=== PATIENT | female | born 1995 | race Caucasian/White ===

== ENCOUNTER 2020-02-02 18:02 | Emergency (ER) | payer OTHER ==
[~2020-02-02] VITALS: Ht 167.6 cm; Wt 49.9 kg
[~2020-02-02 18:02] MED LIST: PAROXETINE HCL10 MG PO; PRENATAL TABLE1 EAC1
--- OUTSIDE RECORDS SUMMARY | 2020-02-02 18:05 | XMS REPORT ---
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 Allergies, Adverse Reactions, Alerts Allergy Name Allergy Type Status Severity Reaction(s) Onset Date Inactive Date Treating Clinician Comments No Known Allergies DA Active U 2020-01-03 00:00:00 No Known Allergies DA Active U 2019-08-14 00:00:00 No Known Allergies DA Active U 2019-07-28 00:00:00 No Known Allergies DA Active U 2016-12-11 00:00:00 Medications This patient has no known medications. Results Test Description Test Time Test Comments Text Results Atomic Results Result Comments BASIC METABOLIC PANEL 2019-12-25 13:29:00 SODIUM (test code=NA) 145 mmol/L 136-145 POTASSIUM (test code=K) 3.9 mmol/L 3.5-5.1 CHLORIDE (test code=CL) 108 mmol/L 101-109 CARBON DIOXIDE (test code=CO2) 29.7 mmol/L 21-32 ANION GAP (test code=GAP) 11 mmol/L 10-20 GLUCOSE (test code=GLU) 87 mg/dL 74-106 BLOOD UREA NITROGEN (test code=BUN) 11 mg/dL 3-21 GLOMERULAR FILTRATION RATE (test code=GFR) > 60 mL/min >=60 Estimated GFR by using Modified MDRD formula.Chronic kidney disease is defined as either kidney damageor GFR <60 mL/min/1.73 m2 for >3 months. CREATININE (test code=CREAT) 0.66 mg/dL 0.55-1.3 BUN/CREATININE RATIO (test code=BUN/CREA) 16.7 10-20 CALCIUM (test code=CA) 8.8 mg/dL 8.4-10.2 UR HCG [id number] 13:25:00* Test Item Value Reference Range Comments UR HCG QUAL (test code=HCGQLU) NEGATIVE This HCGQL test is NOT applicable for MALE patients.Check with nurse about probable order error.If Tumor Marker Test needed, nurse should order test "HCGTU"(Test #550.70647) PROTHROMBIN [id number] 13:23:00* Test Item Value Reference Range Comments PROTHROMBIN TIME PATIENT (test code=PTP) 10.3 seconds 9.0-13.0 INTERNATIONAL NORMAL RATIO (test code=INR) 1.0 0.8-1.2 The therapeutic range for oral anticoagulant therapy formost indications is an international normalized ratio (INR)of between 2.0 and 3.0. The recommended therapeutic INRrange for various clinical situations is listed below: Clinical Situation INR range Pulmonary e mbolism treatment (2.0-3.0)Venous thrombosis treatmentVenous thrombosis prophylaxis (high risk surgery)Prevention of systemic embolism from: Acute myocardial infarction Valvular heart disease Atrial fibrillation Mechanical prosthetic heart valves (2.5-3.5) IS PATIENT ON ANTICOAGULANTS? NTHROMBOPLASTIN TIME [id number] 13:23:00* Test Item Value Reference Range Comments THROMBOPLASTIN TIME PARTIAL (test code=PTT) 21.7 seconds 25.5-34.3 Therapeutic Range for patients on Heparin Therapy is 2 to2.5 times their baseline PTT level. IS PATIENT ON ANTICOAGULANTS? NCBC W/AUTO [id number] 13:00:00* Test Item Value Reference Range Comments WHITE BLOOD CELL (test code=WBC) 4.5 K/mm3 4.5-12.5 RED BLOOD CELL (test code=RBC) 4.96 mill/mm3 3.7-5.2 HEMOGLOBIN (test code=HGB) 14.3 gram/dL 11.5-15.5 HEMATOCRIT (test code=HCT) 42.6 % 36.0-46.0 MEAN CELL VOLUME (test code=MCV) 85.9 fL 80-98 MEAN CELL HGB (test code=MCH) 28.8 picogram 27.0-33.0 MEAN CELL HGB CONCETRATION (test code=MCHC) 33.6 gram/dL 33.0-36.0 RED CELL DISTRIBUTION WIDTH (test code=RDW) 11.6 % 11.6-16.2 RED CELL DISTRIBUTION WIDTH SD (test code=RDW-SD) 36.3 fL 37.0-51.0 PLATELET COUNT (test code=PLT) 126 K/mm3 150-450 MEAN PLATELET VOLUME (test code=MPV) 11.9 fL 6.7-11.0 NEUTROPHIL % (test code=NT%) 47.7 % 39.0-69.0 LYMPHOCYTE % (test code=LY%) 38.7 % 25.0-55.0 MONOCYTE % (test code=MO%) 8.0 % 0.0-10.0 EOSINOPHIL % (test code=EO%) 3.8 % 0.0-5.0 BASOPHIL % (test code=BA%) 0.9 % 0.0-1.0 NEUTROPHIL # (test code=NT#) 2.16 K/mm3 1.8-7.7 LYMPHOCYTE # (test code=LY#) 1.75 K/mm3 1.0-5.0 MONOCYTE # (test code=MO#) 0.36 K/mm3 0-0.8 EOSINOPHIL # (test code=EO#) 0.17 K/mm3 0.0-0.5 BASOPHIL # (test code=BA#) 0.04 K/mm3 0.0-0.2 MANUAL DIFF REQUIRED (test code=MDIFF) NO - CT HEAD/BRAIN W/O [id number] 12:45:00 Name: ARSLAN KINNEY [facility] : 1995 Age/S: 24 / F [address] [facility] Unit #: [id number] Loc: [place] [address] Phys: Power Cohen MD Acct: [id number] Dis Date: Status: REG ER PHONE #: [phone] Exam Date: 12/25/2019 1200 FAX #: [phone] Reason: Headache EXAMS: CPT CODE: [id number] CT HEAD/BRAIN W/O CONT 18099 HISTORY: Headache TECHNIQUE: Noncontrast 2.[address] of the head. Examination acquired within 24 hours of arrival. Automated exposure control for dose reduction. COMPARISON: Noncontrast CT brain August 13, 2019 FINDINGS: No lacerations or contusions of the scalp or facial soft tissues. Calvarium and skull base are intact. No acute hemorrhage. No intracranial mass, mass effect, or midline shift. No effacement of the sulci or lebron-white matter interface. No cortical atrophy. No signs of white matter small-vessel disease. No hydrocephalus.. No extra-axial fluid collection. Visualized paranasal sinuses are clear. Mastoid air cells and middle ear cavities are clear. Orbital contents are unremarkable. IMPRESSION: Negative CT head. Location: [facility] E lectronically Signed by Trevor Garcia MD on 12/25/2019 at 1245 Reported and signed by: Trevor Garcia MD CC: Power Cohen MD Technologist:Pia Montez CTDI: DLP: Trnscb Date/Time: 12/25/2019 (1245) [email or web address] Orig Print D/T: S: 12/25/2019 (5708) PAGE 1 Signed Report URINALYSIS [id number] 12:40:00* Test Item Value Reference Range Comments UA COLOR (test code=COLU) YELLOW YELLOW UA APPEARANCE (test code=APPU) HAZY CLEAR UA GLUCOSE DIPSTICK (test code=DGLUU) norm mg/dL NEGATIVE UA BILIRUBIN DIPSTICK (test code=BILU) NEGATIVE mg/dL NEGATIVE UA KETONE DIPSTICK (test code=KETU) neg mg/dL NEGATIVE UA SPECIFIC GRAVITY (test code=SGU) 1.010 1.001-1.035 UA BLOOD DIPSTICK (test code=MAIRA) 150 (3+) Elías/uL NEGATIVE UA PH DIPSTICK (test code=GERARDO) 7.0 5.0-8.0 UA PROTEIN DIPSTICK (test code=PROU) neg mg/dL Neg-15 UA UROBILINIOGEN DIPSTICK (test code=URO) norm mg/dL 0.0-0.2 UA NITRITE DIPSTICK (test code=BOBBY) NEGATIVE NEGATIVE UA LEUKOCYTE ESTERASE DIPSTICK (test code=LEUU) 500 Warren/uL (3+) uL NEGATIVE UA WBC (test code=WBCU) 6-10 per HPF 0-5 UA RBC (test code=RBCU) 3-5 per HPF 0-5 UA EPITHELIAL CELLS (test code=EPIU) MANY per HPF Few UA BACTERIA (test code=BACU) FEW per HPF NONE Urine Source? Clean CatchURINALYSIS [id number] 12:38:00* Test Item Value Reference Range Comments UA COLOR (test code=COLU) YELLOW YELLOW UA APPEARANCE (test code=APPU) HAZY CLEAR UA GLUCOSE DIPSTICK (test code=DGLUU) norm mg/dL NEGATIVE UA BILIRUBIN DIPSTICK (test code=BILU) NEGATIVE mg/dL NEGATIVE UA KETONE DIPSTICK (test code=KETU) neg mg/dL NEGATIVE UA SPECIFIC GRAVITY (test code=SGU) 1.010 1.001-1.035 UA BLOOD DIPSTICK (test code=MAIRA) 150 (3+) Elías/uL NEGATIVE UA PH DIPSTICK (test code=GERARDO) 7.0 5.0-8.0 UA PROTEIN DIPSTICK (test code=PROU) neg mg/dL Neg-15 UA UROBILINIOGEN DIPSTICK (test code=URO) norm mg/dL 0.0-0.2 UA NITRITE DIPSTICK (test code=BOBBY) NEGATIVE NEGATIVE UA LEUKOCYTE ESTERASE DIPSTICK (test code=LEUU) 500 Warren/uL (3+) uL NEGATIVE UA WBC (test code=WBCU) per HPF 0-5 UA RBC (test code=RBCU) per HPF 0-5 UA EPITHELIAL CELLS (test code=EPIU) per HPF Few UA BACTERIA (test code=BACU) per HPF NONE Urine Source? Clean Catch- CT ABD PELVIS [id number] 10:47:00 Name: ARSLAN KINNEY [facility] : 1995 Age/S: 24 / F [address] [facility] Unit #: [id number] Loc: [facility] [place] [address] Phys: Darrion Metzger MD Acct: [id number] Di s Date: Status: REG ER PHONE #: Exam Date: 10/16/2019 1026 FAX #: [phone] Reason: upper abd pain EXAMS: CPT CODE: [id number] CT ABD PELVIS W/CONT 22191 REASON FOR EXAM: upper abd pain EXAM ORDER DATE: 10/16/2019 9:35 AM Ordering M.D.: Darrion Metzger MD PROCEDURE: - CT ABD PELVIS W/CONT cont rast-enhanced axial CT images were acquired through the abdomen/pelvis at 5 mm intervals. Sagittal and coronal reformatted images were generated. Automated exposure control was utilized for this reduction. Phases of contrast: venous and delayed COMPARISON: CT abdomen and pelvis July 28, 2019 FINDINGS: Visualized thorax: Normal Hepatobiliary system: Normal. Specifically no calcified ga llbladder stones and no inflammatory changes of the gallbladder are appare nt Pancreas: Normal Spleen: Measures at the upper li mits of normal in size. No parenchymal abnormalities are seen Adrenal glands: Normal Genitourinary system: Normal Gastrointestinal tract and appendix: Heavy colonic stool burden. Stomach and small bowel are within normal limits. Appendix is not visualized choe giselle no inflammatory changes are seen in the expected region of the appendi x. Abdominal vascular structures: Normal Peritoneum and retroperitoneum: No free fluid or free air. No omental or mesenteric masses. No abnormal lymph nodes. Musculoskeletal structures and a bdominal wall: Normal IMPRESSION: Heavy colonic stool bu rden suggests constipation. However there are no PAGE 1 Signed Report (CONTINUED) [facility] 1995 [facility]S: 24 / F [address] [facility] Unit #: [id number] Loc: [place], [place] [address] Phys: Darrion Metzger MD Acct: [id number] Dis Date: Status: REG ER PHONE #: [phone] Exam Date: 10/16 1026 FAX #: [phone] Reason: upper abd pain EXAMS: CPT CODE: [id number] CT ABD PELVIS W/CONT 74 177 <Continued> abnormalities of the gallbladder, pancreas, or stomach to explain the patient's upper abdominal pain. Location: [facility] at 1047 Reported and signed by: Trevor Garcia MD CC: Becca Hernandez MD; Darrion Metzger MD Technologist:Juanito Eubanks RT(R),CT CTDI: DLP: Trnscb Date/Time: 10/16/2019 (1047) [email or web address].[id number] Orig Print D/T: S: 10/16/2019 (2040) PAGE 2 Signed Report URINALYSIS [id number] 10:06:00* Test Item Value Reference Range Comments UA COLOR (test code=COLU) YELLOW YELLOW UA APPEARANCE (test code=APPU) HAZY CLEAR UA GLUCOSE DIPSTICK (test code=DGLUU) norm mg/dL NEGATIVE UA BILIRUBIN DIPSTICK (test code=BILU) NEGATIVE mg/dL NEGATIVE UA KETONE DIPSTICK (test code=KETU) neg mg/dL NEGATIVE UA SPECIFIC GRAVITY (test code=SGU) 1.005 1.001-1.035 UA BLOOD DIPSTICK (test code=MAIRA) neg Elías/uL NEGATIVE UA PH DIPSTICK (test code=GERARDO) 7.0 5.0-8.0 UA PROTEIN DIPSTICK (test code=PROU) neg mg/dL Neg-15 UA UROBILINIOGEN DIPSTICK (test code=URO) norm mg/dL 0.0-0.2 UA NITRITE DIPSTICK (test code=BOBBY) NEGATIVE NEGATIVE UA LEUKOCYTE ESTERASE DIPSTICK (test code=LEUU) 100 Warren/uL (1+) uL NEGATIVE UA WBC (test code=WBCU) 20-30 per HPF 0-5 UA RBC (test code=RBCU) 0-2 per HPF 0-5 UA EPITHELIAL CELLS (test code=EPIU) MANY per HPF Few UA BACTERIA (test code=BACU) MODERATE per HPF NONE URINALYSIS W/O [id number] 10:06:00* Test Item Value Reference Range Comments UA MICROSCOPIC NEEDED? (test code=UAMICRO) YES UR HCG [id number] 10:06:00* Test Item Value Reference Range Comments UR HCG QUAL (test code=HCGQLU) NEGATIVE This HCGQL test is NOT applicable for MALE patients.Check with nurse about probable order error.If Tumor Marker Test needed, nurse should order test "HCGTU"(Test #550.65235) COMPREHENSIVE METABOLIC [id number] 10:02:00* Test Item Value Reference Range Comments SODIUM (test code=NA) 141 mmol/L 136-145 POTASSIUM (test code=K) 3.7 mmol/L 3.5-5.1 CHLORIDE (test code=CL) 105 mmol/L 101-109 CARBON DIOXIDE (test code=CO2) 27.9 mmol/L 21-32 ANION GAP (test code=GAP) 12 mmol/L 10-20 GLUCOSE (test code=GLU) 94 mg/dL 74-106 BLOOD UREA NITROGEN (test code=BUN) 10 mg/dL 3-21 CREATININE (test code=CREAT) 0.68 mg/dL 0.55-1.3 BUN/CREATININE RATIO (test code=BUN/CREA) 14.7 10-20 TOTAL PROTEIN (test code=PROT) 7.4 g/dL 6.5-8.4 ALBUMIN (test code=ALB) 4.0 g/dL 3.4-4.8 GLOBULIN (test code=GLOB) 3.4 G/DL 1-10 ALBUMIN/GLOBULIN RATIO (test code=A/G) 1.18 RATIO 0.75-1.50 CALCIUM (test code=CA) 8.8 mg/dL 8.4-10.2 BILIRUBIN TOTAL (test code=BILT) 0.60 mg/dL 0.0-1.0 SGOT/AST (test code=AST) 22 U/L 6-32 SGPT/ALT (test code=ALT) 22 U/L 12-78 Note: Change in REFERENCE RANGE due to new reagent method. ALKALINE PHOSPHATASE TOTAL (test code=ALKP) 84 U/L 38-126 [id number] 10:02:00* Test Item Value Reference Range Comments LIPASE (test code=LIP) 159 U/L 128-270 URINALYSIS [id number] 09:59:00* Test Item Value Reference Range Comments UA COLOR (test code=COLU) YELLOW YELLOW UA APPEARANCE (test code=APPU) CLEAR UA GLUCOSE DIPSTICK (test code=DGLUU) norm mg/dL NEGATIVE UA BILIRUBIN DIPSTICK (test code=BILU) NEGATIVE mg/dL NEGATIVE UA KETONE DIPSTICK (test code=KETU) neg mg/dL NEGATIVE UA SPECIFIC GRAVITY (test code=SGU) 1.005 1.001-1.035 UA BLOOD DIPSTICK (test code=MAIRA) neg Elías/uL NEGATIVE UA PH DIPSTICK (test code=GERARDO) 7.0 5.0-8.0 UA PROTEIN DIPSTICK (test code=PROU) neg mg/dL Neg-15 UA UROBILINIOGEN DIPSTICK (test code=URO) norm mg/dL 0.0-0.2 UA NITRITE DIPSTICK (test code=BOBBY) NEGATIVE NEGATIVE UA LEUKOCYTE ESTERASE DIPSTICK (test code=LEUU) 100 Warren/uL (1+) uL NEGATIVE UA WBC (test code=WBCU) per HPF 0-5 UA RBC (test code=RBCU) per HPF 0-5 UA EPITHELIAL CELLS (test code=EPIU) per HPF Few UA BACTERIA (test code=BACU) per HPF NONE URINALYSIS W/O [id number] 09:59:00* Test Item Value Reference Range Comments UA MICROSCOPIC NEEDED? (test code=UAMICRO) YES UR HCG [id number] 09:59:00* Test Item Value Reference Range Comments UR HCG QUAL (test code=HCGQLU) NEGATIVE This HCGQL test is NOT applicable for MALE patients.Check with nurse about probable order error.If Tumor Marker Test needed, nurse should order test "HCGTU"(Test #550.65704) URINALYSIS [id number] 09:59:00* Test Item Value Reference Range Comments UA COLOR (test code=COLU) YELLOW YELLOW UA APPEARANCE (test code=APPU) CLEAR UA GLUCOSE DIPSTICK (test code=DGLUU) norm mg/dL NEGATIVE UA BILIRUBIN DIPSTICK (test code=BILU) NEGATIVE mg/dL NEGATIVE UA KETONE DIPSTICK (test code=KETU) neg mg/dL NEGATIVE UA SPECIFIC GRAVITY (test code=SGU) 1.005 1.001-1.035 UA BLOOD DIPSTICK (test code=MAIRA) neg Elías/uL NEGATIVE UA PH DIPSTICK (test code=GERARDO) 7.0 5.0-8.0 UA PROTEIN DIPSTICK (test code=PROU) neg mg/dL Neg-15 UA UROBILINIOGEN DIPSTICK (test code=URO) norm mg/dL 0.0-0.2 UA NITRITE DIPSTICK (test code=BOBBY) NEGATIVE NEGATIVE UA LEUKOCYTE ESTERASE DIPSTICK (test code=LEUU) 100 Warren/uL (1+) uL NEGATIVE UA WBC (test code=WBCU) per HPF 0-5 UA RBC (test code=RBCU) per HPF 0-5 UA EPITHELIAL CELLS (test code=EPIU) per HPF Few UA BACTERIA (test code=BACU) per HPF NONE URINALYSIS W/O [id number] 09:59:00* Test Item Value Reference Range Comments UA MICROSCOPIC NEEDED? (test code=UAMICRO) YES UR HCG [id number] 09:59:00* Test Item Value Reference Range Comments UR HCG QUAL (test code=HCGQLU) NEGATIVE This HCGQL test is NOT applicable for MALE patients.Check with nurse about probable order error.If Tumor Marker Test needed, nurse should order test "HCGTU"(Test #550.04703) URINALYSIS W/O [id number] 09:52:00* Test Item Value Reference Range Comments UA COLOR (test code=COLU) YELLOW UA APPEARANCE (test code=APPU) CLEAR UA BILIRUBIN DIPSTICK (test code=BILU) NEGATIVE UA SPECIFIC GRAVITY (test code=SGU) 1.001-1.035 UA PH DIPSTICK (test code=GERARDO) 5.0-8.0 UA UROBILINIOGEN DIPSTICK (test code=URO) mg/dL 0.0-0.2 UA NITRITE DIPSTICK (test code=BOBBY) NEGATIVE UA LEUKOCYTE ESTERASE DIPSTICK (test code=LEUU) uL NEGATIVE UA MICROSCOPIC NEEDED? (test code=UAMICRO) UR HCG [id number] 09:52:00* Test Item Value Reference Range Comments UR HCG QUAL (test code=HCGQLU) NEGATIVE This HCGQL test is NOT applicable for MALE patients.Check with nurse about probable order error.If Tumor Marker Test needed, nurse should order test "HCGTU"(Test #550.98184) CBC W/AUTO [id number] 09:45:00* Test Item Value Reference Range Comments WHITE BLOOD CELL (test code=WBC) 6.8 K/mm3 4.5-12.5 RED BLOOD CELL (test code=RBC) 4.42 mill/mm3 3.7-5.2 HEMOGLOBIN (test code=HGB) 12.6 gram/dL 11.5-15.5 HEMATOCRIT (test code=HCT) 38.7 % 36.0-46.0 MEAN CELL VOLUME (test code=MCV) 87.6 fL 80-98 MEAN CELL HGB (test code=MCH) 28.5 picogram 27.0-33.0 MEAN CELL HGB CONCETRATION (test code=MCHC) 32.6 gram/dL 33.0-36.0 RED CELL DISTRIBUTION WIDTH (test code=RDW) 12.5 % 11.6-16.2 RED CELL DISTRIBUTION WIDTH SD (test code=RDW-SD) 40.7 fL 37.0-51.0 PLATELET COUNT (test code=PLT) 195 K/mm3 150-450 MEAN PLATELET VOLUME (test code=MPV) 11.2 fL 6.7-11.0 NEUTROPHIL % (test code=NT%) 68.0 % 39.0-69.0 LYMPHOCYTE % (test code=LY%) 22.1 % 25.0-55.0 MONOCYTE % (test code=MO%) 7.7 % 0.0-10.0 EOSINOPHIL % (test code=EO%) 1.5 % 0.0-5.0 BASOPHIL % (test code=BA%) 0.6 % 0.0-1.0 NEUTROPHIL # (test code=NT#) 4.59 K/mm3 1.8-7.7 LYMPHOCYTE # (test code=LY#) 1.49 K/mm3 1.0-5.0 MONOCYTE # (test code=MO#) 0.52 K/mm3 0-0.8 EOSINOPHIL # (test code=EO#) 0.10 K/mm3 0.0-0.5 BASOPHIL # (test code=BA#) 0.04 K/mm3 0.0-0.2 MANUAL DIFF REQUIRED (test code=MDIFF) NO BASIC METABOLIC [id number] 21:16:00* Test Item Value Reference Range Comments SODIUM (test code=NA) 139 mEq/L 134-147 POTASSIUM (test code=K) 3.7 mEq/L 3.4-5.0 CHLORIDE (test code=CL) 107 mEq/L 100-108 CARBON DIOXIDE (test code=CO2) 28 mEq/L 21-33 ANION GAP (test code=GAP) 8 0-20 GLUCOSE (test code=GLU) 88 mg/dL 70-110 BLOOD UREA NITROGEN (test code=BUN) 13 mg/dL 7-18 GLOMERULAR FILTRATION RATE (test code=GFR) 104.6 110-120 Units of measure=ml/min/1.73 m2 CREATININE (test code=CREAT) 0.7 mg/dL 0.6-1.3 CALCIUM (test code=CA) 9.1 mg/dL 8.0-10.5 HEPATIC FUNCTION [id number] 21:16:00* Test Item Value Reference Range Comments TOTAL PROTEIN (test code=PROT) 8.1 g/dL 6.4-8.2 ALBUMIN (test code=ALB) 4.70 g/dL 3.4-5.0 BILIRUBIN TOTAL (test code=BILT) 0.4 MG/DL <1.5 BILIRUBIN DIRECT (test code=BILD) 0.10 MG/DL 0.0-0.30 BILIRUBIN INDIRECT (test code=BILIND) 0.30 MG/DL SGOT/AST (test code=AST) 19 IUnit/L 15-37 SGPT/ALT (test code=ALT) 22 IUnit/L 15-65 ALKALINE PHOSPHATASE TOTAL (test code=ALKP) 86 IUnit/L 20-125 [id number] 21:16:00* Test Item Value Reference Range Comments LIPASE (test code=LIP) 154 IUnit/L 73-393 BASIC METABOLIC [id number] 21:08:00* Test Item Value Reference Range Comments SODIUM (test code=NA) 139 mEq/L 134-147 POTASSIUM (test code=K) 3.7 mEq/L 3.4-5.0 CHLORIDE (test code=CL) 107 mEq/L 100-108 CARBON DIOXIDE (test code=CO2) 28 mEq/L 21-33 ANION GAP (test code=GAP) 8 0-20 GLUCOSE (test code=GLU) 88 mg/dL 70-110 BLOOD UREA NITROGEN (test code=BUN) 13 mg/dL 7-18 GLOMERULAR FILTRATION RATE (test code=GFR) 110-120 CREATININE (test code=CREAT) mg/dL 0.6-1.3 CALCIUM (test code=CA) 9.1 mg/dL 8.0-10.5 HEPATIC FUNCTION [id number] 21:08:00* Test Item Value Reference Range Comments TOTAL PROTEIN (test code=PROT) g/dL 6.4-8.2 ALBUMIN (test code=ALB) g/dL 3.4-5.0 BILIRUBIN TOTAL (test code=BILT) MG/DL <1.5 BILIRUBIN DIRECT (test code=BILD) MG/DL 0.0-0.30 SGOT/AST (test code=AST) IUnit/L 15-37 SGPT/ALT (test code=ALT) IUnit/L 15-65 ALKALINE PHOSPHATASE TOTAL (test code=ALKP) IUnit/L 20-125 [id number] 21:08:00* Test Item Value Reference Range Comments LIPASE (test code=LIP) 154 IUnit/L 73-393 UA RFLX MICR CULT IF [id number] 20:28:00* Test Item Value Reference Range Comments UA COLOR (test code=COLU) YELLOW YEL/STRAW UA APPEARANCE (test code=APPU) CLOUDY CLEAR UA GLUCOSE DIPSTICK (test code=DGLUU) NEGATIVE NEGATIVE UA BILIRUBIN DIPSTICK (test code=BILU) NEGATIVE NEGATIVE UA KETONE DIPSTICK (test code=KETU) NEGATIVE NEGATIVE UA SPECIFIC GRAVITY (test code=SGU) 1.018 1.005-1.030 UA BLOOD DIPSTICK (test code=MAIRA) NEGATIVE NEGATIVE UA PH DIPSTICK (test code=GERARDO) 6.0 5.0-7.0 UA PROTEIN DIPSTICK (test code=PROU) NEGATIVE NEGATIVE UA UROBILINIOGEN DIPSTICK (test code=URO) 0.2 mg/dL 0.2-1.0 UA NITRITE DIPSTICK (test code=BOBBY) NEGATIVE NEGATIVE UA LEUKOCYTE ESTERASE DIPSTICK (test code=LEUU) 3+ NEGATIVE UA WBC (test code=WBCU) 21-50 WBC/HPF 0-3 UA RBC (test code=RBCU) 4-10 RBC/HPF 0-3 UA WBC NO REFLEX (test code=WBCUCL) 21-50 WBC/HPF 0-3 UA BACTERIA (test code=BACU) TRACE /HPF NONE SEEN UA SQUAMOUS CELLS (test code=SQU) 36-50 /HPF NONE SEEN UA MUCUS (test code=MUCU) 2+ /LPF NONE SEEN Indication for culture: Suprapubic PainSpecimen Description: CLEAN CATCHUR HCG [id number] 20:24:00* Test Item Value Reference Range Comments UR HCG QUAL (test code=HCGQLU) NEGATIVE NEGATIVE CBC W/AUTO [id number] 20:20:00* Test Item Value Reference Range Comments WHITE BLOOD CELL (test code=WBC) 5.84 x10 3/uL 4.5-11.0 RED BLOOD CELL (test code=RBC) 4.85 x10 6/uL 3.54-5.02 HEMOGLOBIN (test code=HGB) 14.0 g/dL 11.0-15.0 HEMATOCRIT (test code=HCT) 43.0 % 33.0-45.0 MEAN CELL VOLUME (test code=MCV) 88.7 fL 81.0-99.0 MEAN CELL HGB (test code=MCH) 28.9 pg 27.0-33.0 MEAN CELL HGB CONCETRATION (test code=MCHC) 32.6 g/dL 33.0-37.0 RED CELL DISTRIBUTION WIDTH CV (test code=RDW) 12.9 % 11.5-14.5 RED CELL DISTRIBUTION WIDTH SD (test code=RDW-SD) 41.2 fL 37.0-54.0 PLATELET COUNT (test code=PLT) 225 x10 3/uL 150-400 MEAN PLATELET VOLUME (test code=MPV) 12.5 fL 7.0-9.0 NEUTROPHIL % (test code=NT%) 45.7 % 56.0-77.0 IMMATURE GRANULOCYTE % (test code=IG%) 0.3 % 0.0-2.0 LYMPHOCYTE % (test code=LY%) 43.8 % 14.0-32.0 MONOCYTE % (test code=MO%) 7.4 % 4.8-9.0 EOSINOPHIL % (test code=EO%) 1.9 % 0.3-3.7 BASOPHIL % (test code=BA%) 0.9 % 0.0-2.0 NUCLEATED RBC % (test code=NRBC%) 0.0 % 0-0 NEUTROPHIL # (test code=NT#) 2.67 x10 3/uL 2.0-7.6 IMMATURE GRANULOCYTE # (test code=IG#) 0.02 x10 3/uL 0.00-0.03 LYMPHOCYTE # (test code=LY#) 2.56 x10 3/uL 1.0-3.8 MONOCYTE # (test code=MO#) 0.43 x10 3/uL 0.1-0.8 EOSINOPHIL # (test code=EO#) 0.11 x10 3/uL 0.0-0.2 BASOPHIL # (test code=BA#) 0.05 x10 3/uL 0.0-0.2 NUCLEATED RBC # (test code=NRBC#) 0.00 x10 3/uL 0.0-0.1 MANUAL DIFF REQUIRED (test code=MDIFF) NO - US ABDOMEN [id number] 20:05:00 Name: ARSLAN KINNEY [facility] : 1995 Age/S: 24 / F [address] [place] [address] Blvd Unit #: [id number] Loc: [place] [address] Phys: Reginaldo Romero NP Acct: [id number] Dis Date: Status: REG ER PHONE #: [phone] Exam Date: 09/25/20191958 FAX #: [phone] Reason: RUQ abd pain EXAMS: CPT CODE: [id number] US ABDOMEN LTD 20023 PROCEDURE: RIGHT UPPER QUADRANT ABDOMINAL ULTRASOUND INDICATION: Right upper quadrant abdominal pain. COMPARISON: 06/12/2014 right upper quadrant abdominal ultrasound. 07/28/2019 CT abdomen. TECHNIQUE: Sonographic evaluation of the right upper quadrant of the abdomen was performed with supplemental color and pulsed Doppler. FINDINGS: LIVER: The liver is normal in contour and morphology with normal parenchymal echogenicity. GALLBLADDER: There are no gallstones, sludge, pericholecystic fluid, or wall thickening. BILE DUCTS: No intrahepatic biliary dilatation. The common bile duct measures 4 mm. PANCREAS: The visualized portions of the pancreas appear normal. RIGHT KIDNEY: The right kidney measures 11.2 cm in length. Normal renal contour and morphology with normal echogenicity. There is no hydronephrosis. Additional comments: No free fluid seen in Louie's pouch. IMPRESSION: Normal exam. SL: SG-H at 2004 Reported and signed by: Hany Miles M.D. CC: Becca Hernandez MD; Reginaldo Romero NP Technologist: Magda Li RDMS (Daiana) Trnscb Date/Time: 09/25/2019 (2004) [email or web address] Orig Print D/T: S: 09/25/2019 (2007) Probe: PAGE 1 Signed Report [id number] 05:09:00* Test Item Value Reference Range Comments ESTRADIOL (test code=ESTRA) 21.4 pg/mL () Adult Female: Follicular phase 12.5 - 166.0 Ovulation phase 85.8 - 498.0 Luteal phase 43.8 - 211.0 Postmenopausal <6.0 - 54.7 1st trimester 215.0 - >4300.0 Girls (1-10 years) 6.0 - 27.0Roche ECLIA methodologyPerformed At: [facility] [address] [id number] Black MD Ph:[phone] [id number] 05:09:00* Test Item Value Reference Range Comments PROLACTIN (test code=PROLAC) 56.7 ng/mL 4.8-23.3 Performed At: [facility] [address] [id number] Black MD Ph:[phone] - US RETRO [id number] 14:02:00Patient Name: ARSLAN KINNEY Unit No: [id number] EXAMS: CPT CODE: [id number] US RETRO LTD [address] CLINICAL HISTORY: hematuria Comparison: None Location: W1 TECHNIQUE: Realtime lebron scale and color doppler imaging of the kidneys performed. FINDINGS: The kidneys are normal in size and echogenicity. The right kidney measures 11.1 x 4.6 x 3.7 cm. The left kidney measures 11.7 x 4.2 x 3.8 cm. No renal mass, hydronephrosis, or shadowing calculus is seen. The urinary bladder is unremarkable. Bilateral ureteral jets are visible. IMPRESSION: Normal exam at 1402 Reported and signed by: Narayan Quach MD CC: No Primary Care Physician; Forrest Andrea MD Technologist: Alejandra Saldana Probe: Trscr Dt/Tm: 08/15/2019 (1402) by:JosieNAB2 Printed Date/Time: 08/15/2019 (1133) Name: ARSLAN KINNEY [facility] Phys: Forrest Villeda MD [address] : 1995 Age: 24 Sex: [place] [address] [id number] Loc: P.0618 1 Exam Date: 08/15/2019 Status: ADM IN PH: FAX: PAGE 1 Signed Report BASIC METABOLIC [id number] 07:08:00* Test Item Value Reference Range Comments SODIUM (test code=NA) 143 MMOL/L 136-143 POTASSIUM (test code=K) 5.1 MMOL/L 3.5-5.1 CHLORIDE (test code=CL) 108 MMOL/L 98-107 CARBON DIOXIDE (test code=CO2) 24 mmol/L 24-31 GLUCOSE (test code=GLU) 92 mg/dL 70-104 BLOOD UREA NITROGEN (test code=BUN) 7.5 MG/DL 7.0-21.0 GLOMERULAR FILTRATION RATE (test code=GFR) >=60 max estimate >60 The estimated glomerular filtration rate is computed usingpatient race, age (>18), sex, and serum creatinine. If anyof the needed data elements are missing the Laboratory cannot compute an estimation of the glomerular filtration rate. CREATININE (test code=CREAT) 0.6 mg/dL 0.8-1.5 CALCIUM (test code=CA) 9.0 mg/dL 8.8-10.2 CBC W/AUTO [id number] 06:56:00* Test Item Value Reference Range Comments WHITE BLOOD CELL (test code=WBC) 5.6 x10 3/uL 4.8-10.8 RED BLOOD CELL (test code=RBC) 4.40 x10 6/uL 4.20-5.40 HEMOGLOBIN (test code=HGB) 12.3 g/dL 14.5-20 HEMATOCRIT (test code=HCT) 38.8 % 37.0-47.0 MEAN CELL VOLUME (test code=MCV) 88.2 fL 81.0-99.0 MEAN CELL HGB (test code=MCH) 28.0 pg 27-31 MEAN CELL HGB CONCENTRATION (test code=MCHC) 31.7 G/DL 33-36.5 RED CELL DISTRIBUTION WIDTH (test code=RDW) 14.8 % 12.9-16.9 PLATELET COUNT (test code=PLT) 182 150-440 MEAN PLATELET VOLUME (test code=MPV) 11.6 fL 8.9-12.4 NEUTROPHIL % (test code=NT%) 42.6 % 42.2-75.2 LYMPHOCYTE % (test code=LY%) 44.3 % 20.5-51.1 MONOCYTE % (test code=MO%) 9.0 % 1.7-9.3 EOSINOPHIL % (test code=EO%) 3.2 % 0.0-7.0 BASOPHIL % (test code=BA%) 0.5 % 0-2.5 NEUTROPHIL # (test code=NT#) 2.38 x10 3/uL 1.80-7.70 LYMPHOCYTE # (test code=LY#) 2.47 x10 3/uL 1.00-4.80 MONOCYTE # (test code=MO#) 0.50 x10 3/uL 0.00-0.80 EOSINOPHIL # (test code=EO#) 0.18 x10 3/uL 0.00-0.45 BASOPHIL # (test code=BA#) 0.03 x10 3/uL 0.0-0.20 LUTEINIZING [id number] 05:09:00* Test Item Value Reference Range Comments LUTEINIZING HORMONE (test code=LH) 1.4 mIU/mL () Adult Female: Follicular phase 2.4 - 12.6 Ovulation phase 14.0 - 95.6 Luteal phase 1.0 - 11.4 Postmenopausal 7.7 - 58.5 FOLLICLE STIMULATING [id number] 05:09:00* Test Item Value Reference Range Comments FOLLICLE STIMULATING HORMONE (test code=FSH) LUTEINIZING [id number] 05:09:00* Test Item Value Reference Range Comments LUTEINIZING HORMONE (test code=LH) 1.4 mIU/mL () Adult Female: Follicular phase 2.4 - 12.6 Ovulation phase 14.0 - 95.6 Luteal phase 1.0 - 11.4 Postmenopausal 7.7 - 58.5 FOLLICLE STIMULATING [id number] 05:09:00* Test Item Value Reference Range Comments FOLLICLE STIMULATING HORMONE (test code=FSH) 3.7 mIU/mL () Adult Female: Follicular phase 3.5 - 12.5 Ovulation phase 4.7 - 21.5 Luteal phase 1.7 - 7.7 Postmenopausal 25.8 - 134.8Performed At: [facility] [address] [place], [place] [id number] Black MD Ph:[phone] CORTISOL [id number] 23:55:00* Test Item Value Reference Range Comments CORTISOL PM (test code=CORTPM) 3.1 mcg/dL 2.3-11.9 URINALYSIS [id number] 23:32:00* Test Item Value Reference Range Comments UA COLOR (test code=COLU) YELLOW DISCRIPT YELLOW UA APPEARANCE (test code=APPU) SLIGHTLY CLOUDY DISCRIPT CLEAR UA GLUCOSE DIPSTICK (test code=DGLUU) NEGATIVE mg/dL NEGATIVE UA BILIRUBIN DIPSTICK (test code=BILU) NEGATIVE NEGATIVE UA KETONE DIPSTICK (test code=KETU) NEGATIVE mg/dL NEGATIVE UA SPECIFIC GRAVITY (test code=SGU) 1.015 1.005-1.030 UA BLOOD DIPSTICK (test code=MAIRA) LARGE NEGATIVE UA PH DIPSTICK (test code=GERARDO) 8.5 5.0-9.0 UA PROTEIN DIPSTICK (test code=PROU) 30 mg/dL NEGATIVE UA UROBILINOGEN DIPSTICK (test code=URO) 0.2 mg/dL 0.2-1.0 UA NITRITE DIPSTICK (test code=BOBBY) NEGATIVE NEGATIVE UA LEUKOCYTE ESTERASE DIPSTICK (test code=LEUU) TRACE NEGATIVE UA [id number] 23:32:00* Test Item Value Reference Range Comments UA WBC (test code=WBCU) 0-2 #WBC/HPF 0-2 UA RBC (test code=RBCU) >100 #RBC/HPF 0-2 UA BACTERIA (test code=BACU) TRACE /HPF NONE-TRACE UA SQUAMOUS CELLS (test code=SQU) 1+ /LPF NONE-TRACE URINALYSIS [id number] 23:21:00* Test Item Value Reference Range Comments UA COLOR (test code=COLU) YELLOW DISCRIPT YELLOW UA APPEARANCE (test code=APPU) SLIGHTLY CLOUDY DISCRIPT CLEAR UA GLUCOSE DIPSTICK (test code=DGLUU) NEGATIVE mg/dL NEGATIVE UA BILIRUBIN DIPSTICK (test code=BILU) NEGATIVE NEGATIVE UA KETONE DIPSTICK (test code=KETU) NEGATIVE mg/dL NEGATIVE UA SPECIFIC GRAVITY (test code=SGU) 1.015 1.005-1.030 UA BLOOD DIPSTICK (test code=MAIRA) LARGE NEGATIVE UA PH DIPSTICK (test code=GERARDO) 8.5 5.0-9.0 UA PROTEIN DIPSTICK (test code=PROU) 30 mg/dL NEGATIVE UA UROBILINOGEN DIPSTICK (test code=URO) 0.2 mg/dL 0.2-1.0 UA NITRITE DIPSTICK (test code=BOBBY) NEGATIVE NEGATIVE UA LEUKOCYTE ESTERASE DIPSTICK (test code=LEUU) TRACE NEGATIVE UA [id number] 23:21:00* Test Item Value Reference Range Comments UA WBC (test code=WBCU) #WBC/HPF 0-2 UA RBC (test code=RBCU) #RBC/HPF 0-2 UA BACTERIA (test code=BACU) /HPF NONE-TRACE UA SQUAMOUS CELLS (test code=SQU) /LPF NONE-TRACE URINALYSIS [id number] 23:21:00* Test Item Value Reference Range Comments UA COLOR (test code=COLU) YELLOW DISCRIPT YELLOW UA APPEARANCE (test code=APPU) SLIGHTLY CLOUDY DISCRIPT CLEAR UA GLUCOSE DIPSTICK (test code=DGLUU) NEGATIVE mg/dL NEGATIVE UA BILIRUBIN DIPSTICK (test code=BILU) NEGATIVE NEGATIVE UA KETONE DIPSTICK (test code=KETU) NEGATIVE mg/dL NEGATIVE UA SPECIFIC GRAVITY (test code=SGU) 1.015 1.005-1.030 UA BLOOD DIPSTICK (test code=MAIRA) LARGE NEGATIVE UA PH DIPSTICK (test code=GERARDO) 8.5 5.0-9.0 UA PROTEIN DIPSTICK (test code=PROU) 30 mg/dL NEGATIVE UA UROBILINOGEN DIPSTICK (test code=URO) 0.2 mg/dL 0.2-1.0 UA NITRITE DIPSTICK (test code=BOBBY) NEGATIVE NEGATIVE UA LEUKOCYTE ESTERASE DIPSTICK (test code=LEUU) TRACE NEGATIVE UA [id number] 23:21:00* Test Item Value Reference Range Comments UA WBC (test code=WBCU) #WBC/HPF 0-2 UA RBC (test code=RBCU) #RBC/HPF 0-2 UA BACTERIA (test code=BACU) /HPF NONE-TRACE UA SQUAMOUS CELLS (test code=SQU) /LPF NONE-TRACE CORTISOL [id number] 16:03:00* Test Item Value Reference Range Comments CORTISOL AM (test code=CORTAM) 10.9 mcg/dL 6.2-19.4 - MRI BRAIN W WO [id number] 15:48:00Patient Name: ARSLAN KINNEY Unit No: [id number] EXAMS: CPT CODE: [id number] MRI BRAIN W WO CONT 17423 HISTORY: pituitary cyst severe headaches TECHNIQUE: Multiplanar imaging of the brain is performed on the Siemens Espree1.5 omar MRI device with and without intravenous gadolinium administration. Post gadolinium-enhanced axial and coronal T1-weighted images were obtained. In addition, thin slice T1 and T2-weighted images were obtained through the sella prior to and following intravenous gadolinium administration Approximately 6.0 mL of Gadavist was administered intravenously. Comparison: None. LOCATION: W1 FINDINGS: There is a 4 mm low intensity region within the mid to posterior pituitary seen best on the post gadolinium-enhanced images. The lesion has T1 mild hyperintensity and T2 isointensity. The pituitary stalk is midline. The suprasellar regions appear normal. The hypothalamus is normal. The brain parenchyma is normal without suspicious masses or enhancement. No vasogenic edema, mass effect or cortical infarct is seen. Diffusion scans appear unremarkable. No extra-axial fluid collections are present. The cr aniocervical junction, pituitary and corpus callosum are morphologically n ormal. Regions of the cerebellopontine angles, cavernous sinuses, orbits a nd optic chiasm appear unremarkable. Ventricles are midline without evidence of hydrocephalus. Basilar cisterns are preserved. The ca lvarium is unremarkable. Visualized paranasal sinuses and mastoids are wel l aerated without significant acute inflammatory change. IMPRESSION: 1. No evidence of acute stroke, hemorrhage or mas s. 2. There is a 4 mm low intensity region within the mid to posterio r pituitary best seen on the postgadolinium images. 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 at 6221 Reported and signed by: Narayan Quach MD Name: ME NIRMAL [facility] Phys: VIRVI - Virgadamo,V incenzo N [address] : 1995 Age: 24 S ex: [place] [id number] Loc: P.0618 1 Exam Date: 08/14/2019 Status: ADM IN PH: FAX: PAGE 1 Signed Report (CONTINUED) Patient Name: ARSLAN KINNEY Unit No: [id number] EXAMS: CPT C ODE: [id number] MRI BRAIN W WO CONT 41571 <Continued> CC: No Primary Care Physician; Forrest Andrea MD; Jeff Mccarthy MD Technologist: Cesar Cobos Trscr Dt/Tm: 08/14/2019 (7895) by:Obi2 Printed Date/Time: 08/14/2019 (9726) Name: ARSLAN KINNEY [facility] Phys: Jeff Diaz [address] : 1995 Age: 24 Sex: [place] [address] Loc: P.0618 1 Exam Date: 08/14/2019 Status: ADM IN PH: FAX: PAGE 2 Signed Report HGBA1C - GLYCOSYLATED HGB 2019-08-14 10:04:00* Test Item Value Reference Range Comments GLYCOSYLATED HEMOGLOBIN (HA1C) (test code=GLYHGB) 5.1 % 0.0-5.6 INTERPRETATIVE DATA:HGBA1C levels above the established reference range are anindication of hyperglycemia during the preceeding 2 - 3months orlonger. HBA1C levels may reach 20% or higher in poorlycontrolled diabetes. Therapeutic action is suggested atlevels above 8%.Diabetic patients with HBA1C levels below 7% meet the goalof the [place] [employer]. Normal: <5.7Pre-Diabetes: 5.7 6.4Diabetic: >6.5Therapeutic goal for glycemic control: <7.0 [id number] 10:03:00* Test Item Value Reference Range Comments PREALBUMIN (test code=PREALB) 17.1 MG/ML 15-42 VITAMIN [id number] 09:31:00* Test Item Value Reference Range Comments VITAMIN B12 (test code=VITB12) 656 PG/ML 211-946 URIC [id number] 09:23:00* Test Item Value Reference Range Comments URIC ACID (test code=URIC) 3.7 MG/DL 2.4-7.0 [id number] 09:23:00* Test Item Value Reference Range Comments MAGNESIUM (test code=MAG) 1.9 mg/dL 1.4-2.6 LIPID PROFILE (CORONARY RISK)2019-08-14 09:23:00* Test Item Value Reference Range Comments TRIGLYCERIDES (test code=TRIG) 53 mg/dL 35-160 CHOLESTEROL (test code=CHOL) 172 mg/dL 0-200 HDL CHOLESTEROL (test code=HDL) 54 mg/dL 45-65 LIPOPROTEIN LDL (test code=LDLC) 108 MG/DL 0-99 INTERPRETATIVE DATA:LDL Cholesterol: Reference RangesOptimal: <100 mg/dLNear Optimal: 100 -129 mg/dLBorderline High: 130 - 159 mg/dLHigh: 160 - 189 mg/dLVery High:=or > 190 mg/dL CORONARY RISK FACTOR (test code=RISK) 3.19 CHOL/HDL RISK MALE: 1/2 AVG 3.43 FEMALE: 1/2 AVG 3.27 AVG 4.97 AVG 4.44 2X AVG 9.55 2X AVG 7.05 3X AVG 23.39 3X AVG 11.04~~~~~~~~~~~~~~~~~~~~~~~~~~~~~~~~~~~~~~~~~~~~~~~~~~~~~~~~~~~~National Cholesterol Education (NCEP) Guidelines:~~~~~~~~~~~~~~~~~~~~~~~~~~~~~~~~~~~~~~~~~~~~~~~~~~~~~~~~~~~~ HDL Cholesterol<40mg/dL: HDL Cholesterol (Major risk factor for CHD)>60mg/dL: HDL Cholesterol (Negative risk factor for CHD)40-59mg/dL: Borderline Risk LDL Cholesterol<100mg/dL: Desirable LDL-C yitjucowraxli722-777vn/dL: Borderline High Risk LDL-C rrzeegyacukgr634-613ju/dL: High risk LDL-C concentration HDL-LDL Cholesterol is affected by a number of factors suchas smoking, age and sex.~~~~~~~~~~~~~~~~~~~~~~~~~~~~~~~~~~~~~~~~~~~~~~~~~~~~~~~~~~~~ BASIC METABOLIC [id number] 09:22:00* Test Item Value Reference Range Comments SODIUM (test code=NA) 140 MMOL/L 136-143 POTASSIUM (test code=K) 4.2 MMOL/L 3.5-5.1 CHLORIDE (test code=CL) 102 MMOL/L 98-107 CARBON DIOXIDE (test code=CO2) 26 mmol/L 24-31 GLUCOSE (test code=GLU) 92 mg/dL 70-104 BLOOD UREA NITROGEN (test code=BUN) 8.1 MG/DL 7.0-21.0 GLOMERULAR FILTRATION RATE (test code=GFR) >=60 max estimate >60 The estimated glomerular filtration rate is computed usingpatient race, age (>18), sex, and serum creatinine. If anyof the needed data elements are missing the Laboratory cannot compute an estimation of the glomerular filtration rate. CREATININE (test code=CREAT) 0.6 mg/dL 0.8-1.5 CALCIUM (test code=CA) 9.2 mg/dL 8.8-10.2 CREATINE KINASE (CK)2019-08-14 09:22:00* Test Item Value Reference Range Comments CREATINE KINASE (CK) (test code=CK) 51 U/L 24-204 CBC W/O [id number] 08:18:00* Test Item Value Reference Range Comments WHITE BLOOD CELL (test code=WBC) 5.3 x10 3/uL 4.8-10.8 RED BLOOD CELL (test code=RBC) 4.73 x10 6/uL 4.20-5.40 HEMOGLOBIN (test code=HGB) 13.2 g/dL 14.5-20 HEMATOCRIT (test code=HCT) 41.2 % 37.0-47.0 MEAN CELL VOLUME (test code=MCV) 87.1 fL 81.0-99.0 MEAN CELL HGB (test code=MCH) 27.9 pg 27-31 MEAN CELL HGB CONCENTRATION (test code=MCHC) 32.0 G/DL 33-36.5 RED CELL DISTRIBUTION WIDTH (test code=RDW-SD) 47 % 35-47 PLATELET COUNT (test code=PLT) 192 150-440 T3 [id number] 02:29:00* Test Item Value Reference Range Comments T3 FREE (test code=T3F) 3.6 PG/ML 2.0-4.4 T4 [id number] 02:29:00* Test Item Value Reference Range Comments T4 FREE (test code=T4F) 1.3 ng/dL 0.93-1.70 THYROID STIMULATING [id number] 02:29:00* Test Item Value Reference Range Comments THYROID STIMULATING HORMONE (test code=TSH) 1.24 mIU/L 0.27-4.20 [id number] 02:29:00* Test Item Value Reference Range Comments CORTISOL (test code=CORTR) 3.1 mcg/dL 6.0-19.1 THYROID STIMULATING [id number] 20:19:00* Test Item Value Reference Range Comments THYROID STIMULATING HORMONE (test code=TSH) 0.92 uIU/mL 0.36-3.74 TSH REFERENCE RANGES: EUTHYROID: 0.4 - 4.3 HYPO : >7.6 HYPER : <0.1 URINALYSIS [id number] 19:53:00* Test Item Value Reference Range Comments UA COLOR (test code=COLU) LIGHT YELLOW YELLOW UA APPEARANCE (test code=APPU) CLEAR CLEAR UA GLUCOSE DIPSTICK (test code=DGLUU) norm mg/dL NEGATIVE UA BILIRUBIN DIPSTICK (test code=BILU) NEGATIVE mg/dL NEGATIVE UA KETONE DIPSTICK (test code=KETU) neg mg/dL NEGATIVE UA SPECIFIC GRAVITY (test code=SGU) 1.010 1.001-1.035 UA BLOOD DIPSTICK (test code=MAIRA) 250 (4+) Elías/uL NEGATIVE UA PH DIPSTICK (test code=GERARDO) 8.0 5.0-8.0 UA PROTEIN DIPSTICK (test code=PROU) neg mg/dL Neg-15 UA UROBILINIOGEN DIPSTICK (test code=URO) norm mg/dL 0.0-0.2 UA NITRITE DIPSTICK (test code=BOBBY) NEGATIVE NEGATIVE UA LEUKOCYTE ESTERASE DIPSTICK (test code=LEUU) 25 Warren/uL (Trace) uL NEGATIVE UA WBC (test code=WBCU) 0-5 per HPF 0-5 UA RBC (test code=RBCU) 3-5 per HPF 0-5 UA EPITHELIAL CELLS (test code=EPIU) Few (2-5/hpf) per HPF Few UA BACTERIA (test code=BACU) FEW per HPF NONE Urine Source? Clean CatchUR HCG [id number] 19:53:00* Test Item Value Reference Range Comments UR HCG QUAL (test code=HCGQLU) NEGATIVE This HCGQL test is NOT applicable for MALE patients.Check with nurse about probable order error.If Tumor Marker Test needed, nurse should order test "HCGTU"(Test #550.85271) Urine Source? Clean CatchDRUGS OF ABUSE SCREEN [id number] 19:53:00* Test Item Value Reference Range Comments URN COCAINE (test code=COCAURN) NEGATIVE NEGATIVE URN CANNABINOIDS (test code=CANNABURN) NEGATIVE NEGATIVE URN AMPHETAMINE (test code=AMPHETURN) NEGATIVE NEGATIVE URN BARBITURATE (test code=BARBITURN) NEGATIVE NEGATIVE URN BENZODIAZEPINE (test code=BENZOURN) NEGATIVE NEGATIVE URN OPIATES (test code=OPIATURN) NEGATIVE NEGATIVE URN PHENCYCLIDINE (PCP) (test code=PHENCURN) NEGATIVE NEGATIVE BASIC METABOLIC [id number] 19:53:00* Test Item Value Reference Range Comments SODIUM (test code=NA) 143 mmol/L 135-148 POTASSIUM (test code=K) 3.5 mmol/L 3.5-5.1 CHLORIDE (test code=CL) 105 mmol/L 101-109 CARBON DIOXIDE (test code=CO2) 27.8 mmol/L 21-32 ANION GAP (test code=GAP) 14 mmol/L 10-20 GLUCOSE (test code=GLU) 83 mg/dL 74-106 BLOOD UREA NITROGEN (test code=BUN) 9 mg/dL 3-21 GLOMERULAR FILTRATION RATE (test code=GFR) > 60 mL/min >=60 Estimated GFR by using Modified MDRD formula.Chronic kidney disease is defined as either kidney damageor GFR <60 mL/min/1.73 m2 for >3 months. CREATININE (test code=CREAT) 0.84 mg/dL 0.55-1.3 BUN/CREATININE RATIO (test code=BUN/CREA) 10.7 10-20 CALCIUM (test code=CA) 9.0 mg/dL 8.4-10.2 HEPATIC FUNCTION [id number] 19:53:00* Test Item Value Reference Range Comments TOTAL PROTEIN (test code=PROT) 7.5 g/dL 6.5-8.4 ALBUMIN (test code=ALB) 4.4 g/dL 3.4-4.8 GLOBULIN (test code=GLOB) 3.1 G/DL 1-10 ALBUMIN/GLOBULIN RATIO (test code=A/G) 1.4 RATIO 0.75-1.50 BILIRUBIN TOTAL (test code=BILT) 0.30 mg/dL 0.0-1.0 BILIRUBIN DIRECT (test code=BILD) 0.10 mg/dL 0.0-0.30 SGOT/AST (test code=AST) 16 U/L 6-32 SGPT/ALT (test code=ALT) 14 U/L 12-78 Note: Change in REFERENCE RANGE due to new reagent method. ALKALINE PHOSPHATASE TOTAL (test code=ALKP) 100 U/L 38-126 - CT HEAD/BRAIN W/O [id number] 19:52:00 [facility] 1995 Age/S: 24 / F [address] [facility] Unit #: [id number] Loc: [place] [address] Phys: Chase Coulter MD Acct: [id number] Dis Date: Status: REG ER PHONE #: [phone] Exam Date: 08/13/20191947 FAX #: [phone] Reason: headache x 2 weeks, post , h/o pituitary EXAMS: CPT CODE: [id number] CT HEAD/BRAIN W/O CONT 13102 REASON FOR EXAM: headache x 2 weeks, post , h/o pituitary "cyst" EXAM ORDER DATE: 08/13/2019 7:17 PM Ordering M.DBeny: Chase Coulter MD PROCEDURE: - CT HEAD/BRAIN W/O CONT COMPARISON: FINDINGS: CT images of the brain were obtained without IV contrast. Dose modulation, iterative reconstruction, and/or weight based adjustment of the MA/KV was utilized to reduce the radiation dose to as low as reasonably achievable. The brain parenchyma is within normal limits. The lauren-white matter delineation is unremarkable. The ventricles, cisterns, and sulci are unremarkable. There is no evidence of hemorrhage, mass, mass effect. There is no evidence of acute or old infarct. The calvarium is intact. IMPRESSION: Unremarkable brain. at 2 Reported and signed by: James Kennedy M.D. CC: Chase Coulter MD; Becca Hernandez MD Technologist:FRANCA DOUGLASS RT(R),CT CTDI: DLP: Trnscb Date/Time: 08/13/2019 (1951) [email or web address] Orig Print D/T: S: 08/13/2019 (1954) PAGE 1 Signed Report BASIC METABOLIC [id number] 19:48:00* Test Item Value Reference Range Comments SODIUM (test code=NA) 143 mmol/L 135-148 POTASSIUM (test code=K) 3.5 mmol/L 3.5-5.1 CHLORIDE (test code=CL) 105 mmol/L 101-109 CARBON DIOXIDE (test code=CO2) 27.8 mmol/L 21-32 ANION GAP (test code=GAP) 14 mmol/L 10-20 GLUCOSE (test code=GLU) 83 mg/dL 74-106 BLOOD UREA NITROGEN (test code=BUN) 9 mg/dL 3-21 GLOMERULAR FILTRATION RATE (test code=GFR) > 60 mL/min >=60 Estimated GFR by using Modified MDRD formula.Chronic kidney disease is defined as either kidney damageor GFR <60 mL/min/1.73 m2 for >3 months. CREATININE (test code=CREAT) 0.84 mg/dL 0.55-1.3 BUN/CREATININE RATIO (test code=BUN/CREA) 10.7 10-20 CALCIUM (test code=CA) 9.0 mg/dL 8.4-10.2 HEPATIC FUNCTION [id number] 19:48:00* Test Item Value Reference Range Comments TOTAL PROTEIN (test code=PROT) gram/dL 6.4-8.2 ALBUMIN (test code=ALB) g/dL 3.4-5.0 GLOBULIN (test code=GLOB) g/dL 2.7-4.2 ALBUMIN/GLOBULIN RATIO (test code=A/G) 0.75-1.50 BILIRUBIN TOTAL (test code=BILT) mg/dL 0.2-1.2 BILIRUBIN DIRECT (test code=BILD) mg/dL 0.0-0.20 SGOT/AST (test code=AST) IUnit/L 15-37 SGPT/ALT (test code=ALT) U/L 10-69 ALKALINE PHOSPHATASE TOTAL (test code=ALKP) IUnit/L 45-117 URINALYSIS [id number] 19:47:00* Test Item Value Reference Range Comments UA COLOR (test code=COLU) LIGHT YELLOW YELLOW UA APPEARANCE (test code=APPU) CLEAR CLEAR UA GLUCOSE DIPSTICK (test code=DGLUU) norm mg/dL NEGATIVE UA BILIRUBIN DIPSTICK (test code=BILU) NEGATIVE mg/dL NEGATIVE UA KETONE DIPSTICK (test code=KETU) neg mg/dL NEGATIVE UA SPECIFIC GRAVITY (test code=SGU) 1.010 1.001-1.035 UA BLOOD DIPSTICK (test code=MAIRA) 250 (4+) Elías/uL NEGATIVE UA PH DIPSTICK (test code=GERARDO) 8.0 5.0-8.0 UA PROTEIN DIPSTICK (test code=PROU) neg mg/dL Neg-15 UA UROBILINIOGEN DIPSTICK (test code=URO) norm mg/dL 0.0-0.2 UA NITRITE DIPSTICK (test code=BOBBY) NEGATIVE NEGATIVE UA LEUKOCYTE ESTERASE DIPSTICK (test code=LEUU) 25 Warren/uL (Trace) uL NEGATIVE UA WBC (test code=WBCU) per HPF 0-5 UA RBC (test code=RBCU) per HPF 0-5 UA EPITHELIAL CELLS (test code=EPIU) per HPF Few UA BACTERIA (test code=BACU) per HPF NONE Urine Source? Clean CatchUR HCG [id number] 19:47:00* Test Item Value Reference Range Comments UR HCG QUAL (test code=HCGQLU) NEGATIVE This HCGQL test is NOT applicable for MALE patients.Check with nurse about probable order error.If Tumor Marker Test needed, nurse should order test "HCGTU"(Test #550.30083) Urine Source? Clean CatchURINALYSIS [id number] 19:46:00* Test Item Value Reference Range Comments UA COLOR (test code=COLU) LIGHT YELLOW YELLOW UA APPEARANCE (test code=APPU) CLEAR CLEAR UA GLUCOSE DIPSTICK (test code=DGLUU) norm mg/dL NEGATIVE UA BILIRUBIN DIPSTICK (test code=BILU) NEGATIVE mg/dL NEGATIVE UA KETONE DIPSTICK (test code=KETU) neg mg/dL NEGATIVE UA SPECIFIC GRAVITY (test code=SGU) 1.010 1.001-1.035 UA BLOOD DIPSTICK (test code=MAIRA) 250 (4+) Elías/uL NEGATIVE UA PH DIPSTICK (test code=GERARDO) 8.0 5.0-8.0 UA PROTEIN DIPSTICK (test code=PROU) neg mg/dL Neg-15 UA UROBILINIOGEN DIPSTICK (test code=URO) norm mg/dL 0.0-0.2 UA NITRITE DIPSTICK (test code=BOBBY) NEGATIVE NEGATIVE UA LEUKOCYTE ESTERASE DIPSTICK (test code=LEUU) 25 Warren/uL (Trace) uL NEGATIVE UA WBC (test code=WBCU) per HPF 0-5 UA RBC (test code=RBCU) per HPF 0-5 UA EPITHELIAL CELLS (test code=EPIU) per HPF Few UA BACTERIA (test code=BACU) per HPF NONE Urine Source? Clean CatchUR HCG [id number] 19:46:00* Test Item Value Reference Range Comments UR HCG QUAL (test code=HCGQLU) Urine Source? Clean CatchCBC W/O [id number] 19:41:00* Test Item Value Reference Range Comments WHITE BLOOD CELL (test code=WBC) 6.6 K/mm3 4.5-12.5 RED BLOOD CELL (test code=RBC) 5.00 mill/mm3 3.7-5.2 HEMOGLOBIN (test code=HGB) 13.8 gram/dL 11.5-15.5 HEMATOCRIT (test code=HCT) 43.3 % 36.0-46.0 MEAN CELL VOLUME (test code=MCV) 86.6 fL 80-98 MEAN CELL HGB (test code=MCH) 27.6 picogram 27.0-33.0 MEAN CELL HGB CONCETRATION (test code=MCHC) 31.9 gram/dL 33.0-36.0 RED CELL DISTRIBUTION WIDTH (test code=RDW) 14.3 % 11.6-16.2 RED CELL DISTRIBUTION WIDTH SD (test code=RDW-SD) 46.3 fL 37.0-51.0 PLATELET COUNT (test code=PLT) 238 K/mm3 150-450 MEAN PLATELET VOLUME (test code=MPV) 11.3 fL 6.7-11.0 - CT ABD PELVIS [id number] 21:34:00 Name: ARSLAN KINNEY [facility] : 1995 Age/S: 24 / F [address] [place], [place] [address] Unit #: [id number] Loc: [place] [address] Phys: Adela Hylton [employer] Acct: [id number] Dis Date: Status: REG ER PHONE #: [phone] Exam Date: 07/28/20192110 FAX #: [phone] Reason: pelvic pain, recent vaginal delivery, flank jerrell EXAMS: CPT CODE: [id number] CT ABD PELVIS W/CONT 53880 CT ABDOMEN AND PELVIS WITH CONTRAST INDICATION: pelvic pain, recent vaginal delivery 4 weeks prior, flank pain. TECHNIQUE: 100 mL Isovue-300 Intravenous contrast was administered followed by CT imaging of the abdomen and pelvis with axial, coronal and sagittal reconstructions. CT imaging performed at this location utilizes radiation dose optimization technique which includes one or more of the followin) Automated exposure control; 2) Adjustment of the mA and/or kV according to patient's size; 3) Use of iterative reconstruction techniques. DLP (mGy-cm): 206 COMPARISONS: CT abdomen and pelvis 02/11/2017 FINDINGS: There is no acute osseous fracture or dislocation. There is a small fat filled, noninflamed umbilical hernia. The aorta reveals no aneurysm or acute process. The inferior vena cava reveals no acute process. The lung bases reveal no acute process. There is no acute hepatic process. There is a 4 mm benign cyst within the anterior inferior right hepatic segment. No specific additional follow-up recommended. The gallbladder and bile ducts reveal no acute process. The pancreas reveals no acute process. The spleen reveals no acute process. There is mild splenomegaly that measures 13.1 cm craniocaudal length. The adrenal glands reveal no acute process or mass. There is no acute renal process. The urinary bladder reveals no acute process. There is a typical 4 week appearance of the uterus with no acute process. PAGE 1 Signed Report (CONTINUED) Name: ARSLAN KINNEY [facility] : 1995 Age/S: 24 / F [address] [place], [place] [address] Unit #: [id number] Loc: [facility] [place] [address] Phys: Adela Hylton NP Acct: [id number] Dis Date: Status: REG ER PHONE #: [phone] Exam Date: 07/28/20192110 FAX #: [phone] Reason: pelvic pain, recent vaginal delivery, flank jerrell EXAMS: CPT CODE: [id number] CT ABD PELVIS W/CONT 88251 <Continued> There are benign vascular calcifications in the pelvis. There is no intra-abdominal free fluid. There is no lymphadenopathy. There is no intra-abdominal free gas. There is no bowel obstruction. There is no bowel mucosal thickening or inflammation. There is no evidence of acute appendicitis. IMPRESSION: 1. No acute intra-abdominal process. 2. There is mild splenomegaly that measures 13.1 cm length. 3. There is a typical 4 week appearance of the uterus with no acute reproductive process. at 213 Reported and signed by: Franki Benson D.O. CC: Becca Mary MD; Adela Hylton NP Technologist:RT Radha(R)(CT) CTDI: DLP: Trnscb Date/Time: 07/28/2019 (2133) [id number] Orig Print D/T: S: 07/28/2019 (2137) PAGE 2 Signed Report COMPREHENSIVE METABOLIC [id number] 20:31:00* Test Item Value Reference Range Comments SODIUM (test code=NA) 141 mEq/L 134-147 POTASSIUM (test code=K) 3.6 mEq/L 3.4-5.0 CHLORIDE (test code=CL) 106 mEq/L 100-108 CARBON DIOXIDE (test code=CO2) 30 mEq/L 21-33 ANION GAP (test code=GAP) 9 0-20 GLUCOSE (test code=GLU) 94 mg/dL 70-110 BLOOD UREA NITROGEN (test code=BUN) 13 mg/dL 7-18 GLOMERULAR FILTRATION RATE (test code=GFR) 89.7 110-120 Units of measure=ml/min/1.73 m2 CREATININE (test code=CREAT) 0.8 mg/dL 0.6-1.3 TOTAL PROTEIN (test code=PROT) 7.8 g/dL 6.4-8.2 ALBUMIN (test code=ALB) 4.20 g/dL 3.4-5.0 CALCIUM (test code=CA) 9.3 mg/dL 8.0-10.5 BILIRUBIN TOTAL (test code=BILT) 0.20 mg/dL 0.0-1.0 SGOT/AST (test code=AST) 15 IUnit/L 15-37 SGPT/ALT (test code=ALT) 22 IUnit/L 15-65 ALKALINE PHOSPHATASE TOTAL (test code=ALKP) 129 IUnit/L 20-125 COMPREHENSIVE METABOLIC [id number] 20:25:00* Test Item Value Reference Range Comments SODIUM (test code=NA) 141 mEq/L 134-147 POTASSIUM (test code=K) 3.6 mEq/L 3.4-5.0 CHLORIDE (test code=CL) 106 mEq/L 100-108 CARBON DIOXIDE (test code=CO2) 30 mEq/L 21-33 ANION GAP (test code=GAP) 9 0-20 GLUCOSE (test code=GLU) 94 mg/dL 70-110 BLOOD UREA NITROGEN (test code=BUN) 13 mg/dL 7-18 GLOMERULAR FILTRATION RATE (test code=GFR) 110-120 CREATININE (test code=CREAT) mg/dL 0.6-1.3 TOTAL PROTEIN (test code=PROT) g/dL 6.4-8.2 ALBUMIN (test code=ALB) g/dL 3.4-5.0 CALCIUM (test code=CA) 9.3 mg/dL 8.0-10.5 BILIRUBIN TOTAL (test code=BILT) mg/dL 0.0-1.0 SGOT/AST (test code=AST) IUnit/L 15-37 SGPT/ALT (test code=ALT) IUnit/L 15-65 ALKALINE PHOSPHATASE TOTAL (test code=ALKP) IUnit/L 20-125 UA RFLX MICR CULT IF [id number] 20:20:00* Test Item Value Reference Range Comments UA COLOR (test code=COLU) STRAW YEL/STRAW UA APPEARANCE (test code=APPU) CLEAR CLEAR UA GLUCOSE DIPSTICK (test code=DGLUU) NEGATIVE NEGATIVE UA BILIRUBIN DIPSTICK (test code=BILU) NEGATIVE NEGATIVE UA KETONE DIPSTICK (test code=KETU) NEGATIVE NEGATIVE UA SPECIFIC GRAVITY (test code=SGU) 1.005 1.005-1.030 UA BLOOD DIPSTICK (test code=MAIRA) 2+ NEGATIVE UA PH DIPSTICK (test code=GERARDO) 7.0 5.0-7.0 UA PROTEIN DIPSTICK (test code=PROU) NEGATIVE NEGATIVE UA UROBILINIOGEN DIPSTICK (test code=URO) 0.2 mg/dL 0.2-1.0 UA NITRITE DIPSTICK (test code=BOBBY) NEGATIVE NEGATIVE UA LEUKOCYTE ESTERASE DIPSTICK (test code=LEUU) 1+ NEGATIVE UA WBC (test code=WBCU) 4-9 WBC/HPF 0-3 UA RBC (test code=RBCU) 0-3 RBC/HPF 0-3 UA WBC NO REFLEX (test code=WBCUCL) 4-9 WBC/HPF 0-3 UA BACTERIA (test code=BACU) TRACE /HPF NONE SEEN UA SQUAMOUS CELLS (test code=SQU) 0-5 /HPF NONE SEEN Indication for culture: Suprapubic PainSpecimen Description: CLEAN CATCHUR HCG [id number] 20:16:00* Test Item Value Reference Range Comments UR HCG QUAL (test code=HCGQLU) NEGATIVE NEGATIVE CBC W/AUTO [id number] 20:10:00* Test Item Value Reference Range Comments WHITE BLOOD CELL (test code=WBC) 6.40 x10 3/uL 4.5-11.0 RED BLOOD CELL (test code=RBC) 4.84 x10 6/uL 3.54-5.02 HEMOGLOBIN (test code=HGB) 13.2 g/dL 11.0-15.0 HEMATOCRIT (test code=HCT) 42.7 % 33.0-45.0 MEAN CELL VOLUME (test code=MCV) 88.2 fL 81.0-99.0 MEAN CELL HGB (test code=MCH) 27.3 pg 27.0-33.0 MEAN CELL HGB CONCETRATION (test code=MCHC) 30.9 g/dL 33.0-37.0 RED CELL DISTRIBUTION WIDTH CV (test code=RDW) 16.8 % 11.5-14.5 RED CELL DISTRIBUTION WIDTH SD (test code=RDW-SD) 54.3 fL 37.0-54.0 PLATELET COUNT (test code=PLT) 207 x10 3/uL 150-400 MEAN PLATELET VOLUME (test code=MPV) 12.5 fL 7.0-9.0 NEUTROPHIL % (test code=NT%) 57.4 % 56.0-77.0 IMMATURE GRANULOCYTE % (test code=IG%) 0.2 % 0.0-2.0 LYMPHOCYTE % (test code=LY%) 30.9 % 14.0-32.0 MONOCYTE % (test code=MO%) 7.8 % 4.8-9.0 EOSINOPHIL % (test code=EO%) 3.1 % 0.3-3.7 BASOPHIL % (test code=BA%) 0.6 % 0.0-2.0 NUCLEATED RBC % (test code=NRBC%) 0.0 % 0-0 NEUTROPHIL # (test code=NT#) 3.67 x10 3/uL 2.0-7.6 IMMATURE GRANULOCYTE # (test code=IG#) 0.01 x10 3/uL 0.00-0.03 LYMPHOCYTE # (test code=LY#) 1.98 x10 3/uL 1.0-3.8 MONOCYTE # (test code=MO#) 0.50 x10 3/uL 0.1-0.8 EOSINOPHIL # (test code=EO#) 0.20 x10 3/uL 0.0-0.2 BASOPHIL # (test code=BA#) 0.04 x10 3/uL 0.0-0.2 NUCLEATED RBC # (test code=NRBC#) 0.00 x10 3/uL 0.0-0.1 MANUAL DIFF REQUIRED (test code=MDIFF) NO STREPTOCOCCUS PCR [id number] 17:31:00* Test Item Value Reference Range Comments STREPTOCOCCUS DYSGALACTIAE (test code=STREPGC) NEGATIVE FOR G/C NEGATIVE STREPA MOLECULAR (test code=STREPAMOL) NEGATIVE FOR GRP A NEGATIVE - XR CHEST 2 [id number] 23:38:00 Name: ARSLAN KINNEY [facility] : 1995 Age/S:24 /F [address] [facility] Unit#:[id number] Loc: [place] [address] Phys: Candace Dye MD Dis Date: PHONE #: [phone] Status: PRE ER FAX #: [phone] Exam Date: 07/15/2019 Reason: COUGH PRODUCTIVE EXAMS: CPT CODE: [id number] XR CHEST 2 V 43724 AFTER HOURS SERVICE ON: 07/15/2019 11:38 PM Chest, PA and Lateral Location Code M12 History: COUGH PRODUCTIVE Findings: There are no infiltrates. There are no pleural effusions. There is no pneumothorax. Cardiac silhouette and mediastinum appear within normal limits. Impression: No active pulmonary findings. at 4661 Reported and signed by: Ez Quesada M.D. CC: Becca Hernandez MD Technologist: FRANCA DOUGLASS RT(R),CT Trnscrpt Data: 07/15/2019 (2338) [email or web address] Orig Print D/T: S: 07/15/2019 (9900) PAGE 1 Signed Report CBC W/AUTO [id number] 08:33:00* Test Item Value Reference Range Comments WHITE BLOOD CELL (test code=WBC) 10.27 x10 3/uL 4.5-11.0 RED BLOOD CELL (test code=RBC) 3.54 x10 6/uL 3.54-5.02 HEMOGLOBIN (test code=HGB) 9.6 g/dL 11.0-15.0 HEMATOCRIT (test code=HCT) 30.9 % 33.0-45.0 MEAN CELL VOLUME (test code=MCV) 87.3 fL 81.0-99.0 MEAN CELL HGB (test code=MCH) 27.1 pg 27.0-33.0 MEAN CELL HGB CONCETRATION (test code=MCHC) 31.1 g/dL 33.0-37.0 RED CELL DISTRIBUTION WIDTH CV (test code=RDW) 20.6 % 11.5-14.5 RED CELL DISTRIBUTION WIDTH SD (test code=RDW-SD) 65.1 fL 37.0-54.0 PLATELET COUNT (test code=PLT) 102 x10 3/uL 150-400 IMMATURE PLATELET FRACTION (test code=IPF) 11.8 % 0.9-11.2 MEAN PLATELET VOLUME (test code=MPV) 13.8 fL 7.0-9.0 NEUTROPHIL % (test code=NT%) 70.6 % 56.0-77.0 IMMATURE GRANULOCYTE % (test code=IG%) 1.2 % 0.0-2.0 LYMPHOCYTE % (test code=LY%) 17.1 % 14.0-32.0 MONOCYTE % (test code=MO%) 9.3 % 4.8-9.0 EOSINOPHIL % (test code=EO%) 1.3 % 0.3-3.7 BASOPHIL % (test code=BA%) 0.5 % 0.0-2.0 NUCLEATED RBC % (test code=NRBC%) 0.0 % 0-0 NEUTROPHIL # (test code=NT#) 7.25 x10 3/uL 2.0-7.6 IMMATURE GRANULOCYTE # (test code=IG#) 0.12 x10 3/uL 0.00-0.03 LYMPHOCYTE # (test code=LY#) 1.76 x10 3/uL 1.0-3.8 MONOCYTE # (test code=MO#) 0.96 x10 3/uL 0.1-0.8 EOSINOPHIL # (test code=EO#) 0.13 x10 3/uL 0.0-0.2 BASOPHIL # (test code=BA#) 0.05 x10 3/uL 0.0-0.2 NUCLEATED RBC # (test code=NRBC#) 0.00 x10 3/uL 0.0-0.1 MANUAL DIFF REQUIRED (test code=MDIFF) NO PLT [id number] 08:33:00* Test Item Value Reference Range Comments PLATELET ESTIMATE (test code=PLTEST) 120-150 THOUSAND ADEQUATE PLATELET MORPHOLOGY (test code=PLTMORPH) LARGE PLATELETS LARGE PLTS AND GIANT PLTS SEEN CBC W/AUTO [id number] 07:57:00* Test Item Value Reference Range Comments WHITE BLOOD CELL (test code=WBC) 10.27 x10 3/uL 4.5-11.0 RED BLOOD CELL (test code=RBC) 3.54 x10 6/uL 3.54-5.02 HEMOGLOBIN (test code=HGB) 9.6 g/dL 11.0-15.0 HEMATOCRIT (test code=HCT) 30.9 % 33.0-45.0 MEAN CELL VOLUME (test code=MCV) 87.3 fL 81.0-99.0 MEAN CELL HGB (test code=MCH) 27.1 pg 27.0-33.0 MEAN CELL HGB CONCETRATION (test code=MCHC) 31.1 g/dL 33.0-37.0 RED CELL DISTRIBUTION WIDTH CV (test code=RDW) 20.6 % 11.5-14.5 RED CELL DISTRIBUTION WIDTH SD (test code=RDW-SD) 65.1 fL 37.0-54.0 PLATELET COUNT (test code=PLT) 102 x10 3/uL 150-400 IMMATURE PLATELET FRACTION (test code=IPF) 11.8 % 0.9-11.2 MEAN PLATELET VOLUME (test code=MPV) 13.8 fL 7.0-9.0 NEUTROPHIL % (test code=NT%) 70.6 % 56.0-77.0 IMMATURE GRANULOCYTE % (test code=IG%) 1.2 % 0.0-2.0 LYMPHOCYTE % (test code=LY%) 17.1 % 14.0-32.0 MONOCYTE % (test code=MO%) 9.3 % 4.8-9.0 EOSINOPHIL % (test code=EO%) 1.3 % 0.3-3.7 BASOPHIL % (test code=BA%) 0.5 % 0.0-2.0 NUCLEATED RBC % (test code=NRBC%) 0.0 % 0-0 NEUTROPHIL # (test code=NT#) 7.25 x10 3/uL 2.0-7.6 IMMATURE GRANULOCYTE # (test code=IG#) 0.12 x10 3/uL 0.00-0.03 LYMPHOCYTE # (test code=LY#) 1.76 x10 3/uL 1.0-3.8 MONOCYTE # (test code=MO#) 0.96 x10 3/uL 0.1-0.8 EOSINOPHIL # (test code=EO#) 0.13 x10 3/uL 0.0-0.2 BASOPHIL # (test code=BA#) 0.05 x10 3/uL 0.0-0.2 NUCLEATED RBC # (test code=NRBC#) 0.00 x10 3/uL 0.0-0.1 MANUAL DIFF REQUIRED (test code=MDIFF) NO PLT [id number] 07:57:00* Test Item Value Reference Range Comments PLATELET ESTIMATE (test code=PLTEST) THOUSAND ADEQUATE CBC W/AUTO [id number] 07:57:00* Test Item Value Reference Range Comments WHITE BLOOD CELL (test code=WBC) 10.27 x10 3/uL 4.5-11.0 RED BLOOD CELL (test code=RBC) 3.54 x10 6/uL 3.54-5.02 HEMOGLOBIN (test code=HGB) 9.6 g/dL 11.0-15.0 HEMATOCRIT (test code=HCT) 30.9 % 33.0-45.0 MEAN CELL VOLUME (test code=MCV) 87.3 fL 81.0-99.0 MEAN CELL HGB (test code=MCH) 27.1 pg 27.0-33.0 MEAN CELL HGB CONCETRATION (test code=MCHC) 31.1 g/dL 33.0-37.0 RED CELL DISTRIBUTION WIDTH CV (test code=RDW) 20.6 % 11.5-14.5 RED CELL DISTRIBUTION WIDTH SD (test code=RDW-SD) 65.1 fL 37.0-54.0 PLATELET COUNT (test code=PLT) 102 x10 3/uL 150-400 IMMATURE PLATELET FRACTION (test code=IPF) 11.8 % 0.9-11.2 MEAN PLATELET VOLUME (test code=MPV) 13.8 fL 7.0-9.0 NEUTROPHIL % (test code=NT%) 70.6 % 56.0-77.0 IMMATURE GRANULOCYTE % (test code=IG%) 1.2 % 0.0-2.0 LYMPHOCYTE % (test code=LY%) 17.1 % 14.0-32.0 MONOCYTE % (test code=MO%) 9.3 % 4.8-9.0 EOSINOPHIL % (test code=EO%) 1.3 % 0.3-3.7 BASOPHIL % (test code=BA%) 0.5 % 0.0-2.0 NUCLEATED RBC % (test code=NRBC%) 0.0 % 0-0 NEUTROPHIL # (test code=NT#) 7.25 x10 3/uL 2.0-7.6 IMMATURE GRANULOCYTE # (test code=IG#) 0.12 x10 3/uL 0.00-0.03 LYMPHOCYTE # (test code=LY#) 1.76 x10 3/uL 1.0-3.8 MONOCYTE # (test code=MO#) 0.96 x10 3/uL 0.1-0.8 EOSINOPHIL # (test code=EO#) 0.13 x10 3/uL 0.0-0.2 BASOPHIL # (test code=BA#) 0.05 x10 3/uL 0.0-0.2 NUCLEATED RBC # (test code=NRBC#) 0.00 x10 3/uL 0.0-0.1 MANUAL DIFF REQUIRED (test code=MDIFF) NO PLT [id number] 07:57:00* Test Item Value Reference Range Comments PLATELET ESTIMATE (test code=PLTEST) THOUSAND ADEQUATE RAPID PLASMA [id number] 11:30:00* Test Item Value Reference Range Comments RAPID PLASMA REAGIN (test code=RPR) NONREACTIVE NONREACTIVE AG HEPATITIS B [id number] 11:30:00* Test Item Value Reference Range Comments AG HEPATITIS B SURFACE (test code=HBSAG) NON REACTIVE INDEX NonReactive AB HIV 1 11:30:00* Test Item Value Reference Range Comments AB HIV 1 2 (test code=NFY31TL) NONREACTIVE INDEX NONREACTIVE RAPID PLASMA [id number] 20:25:00* Test Item Value Reference Range Comments RAPID PLASMA REAGIN (test code=RPR) NONREACTIVE AG HEPATITIS B [id number] 20:25:00* Test Item Value Reference Range Comments AG HEPATITIS B SURFACE (test code=HBSAG) NON REACTIVE INDEX NonReactive AB HIV 1 20:25:00* Test Item Value Reference Range Comments AB HIV 1 2 (test code=IVI12KO) NONREACTIVE INDEX NONREACTIVE RAPID PLASMA [id number] 16:18:00* Test Item Value Reference Range Comments RAPID PLASMA REAGIN (test code=RPR) NONREACTIVE AG HEPATITIS B [id number] 16:18:00* Test Item Value Reference Range Comments AG HEPATITIS B SURFACE (test code=HBSAG) NON REACTIVE INDEX NonReactive AB HIV 1 16:18:00* Test Item Value Reference Range Comments AB HIV 1 2 (test code=YSB37MJ) INDEX NONREACTIVE CBC W/AUTO [id number] 15:43:00* Test Item Value Reference Range Comments WHITE BLOOD CELL (test code=WBC) 8.99 x10 3/uL 4.5-11.0 RED BLOOD CELL (test code=RBC) 3.96 x10 6/uL 3.54-5.02 HEMOGLOBIN (test code=HGB) 10.7 g/dL 11.0-15.0 HEMATOCRIT (test code=HCT) 34.5 % 33.0-45.0 MEAN CELL VOLUME (test code=MCV) 87.1 fL 81.0-99.0 MEAN CELL HGB (test code=MCH) 27.0 pg 27.0-33.0 MEAN CELL HGB CONCETRATION (test code=MCHC) 31.0 g/dL 33.0-37.0 RED CELL DISTRIBUTION WIDTH CV (test code=RDW) 20.4 % 11.5-14.5 RED CELL DISTRIBUTION WIDTH SD (test code=RDW-SD) 63.3 fL 37.0-54.0 PLATELET COUNT (test code=PLT) 135 x10 3/uL 150-400 IMMATURE PLATELET FRACTION (test code=IPF) 11.4 % 0.9-11.2 MEAN PLATELET VOLUME (test code=MPV) 13.9 fL 7.0-9.0 NEUTROPHIL % (test code=NT%) 71.7 % 56.0-77.0 IMMATURE GRANULOCYTE % (test code=IG%) 1.4 % 0.0-2.0 LYMPHOCYTE % (test code=LY%) 16.7 % 14.0-32.0 MONOCYTE % (test code=MO%) 8.8 % 4.8-9.0 EOSINOPHIL % (test code=EO%) 1.1 % 0.3-3.7 BASOPHIL % (test code=BA%) 0.3 % 0.0-2.0 NUCLEATED RBC % (test code=NRBC%) 0.0 % 0-0 NEUTROPHIL # (test code=NT#) 6.44 x10 3/uL 2.0-7.6 IMMATURE GRANULOCYTE # (test code=IG#) 0.13 x10 3/uL 0.00-0.03 LYMPHOCYTE # (test code=LY#) 1.50 x10 3/uL 1.0-3.8 MONOCYTE # (test code=MO#) 0.79 x10 3/uL 0.1-0.8 EOSINOPHIL # (test code=EO#) 0.10 x10 3/uL 0.0-0.2 BASOPHIL # (test code=BA#) 0.03 x10 3/uL 0.0-0.2 NUCLEATED RBC # (test code=NRBC#) 0.00 x10 3/uL 0.0-0.1 MANUAL DIFF REQUIRED (test code=MDIFF) NO AMNISURE (ROM) [id number] 23:27:00* Test Item Value Reference Range Comments AMNISURE (ROM) TEST (test code=AMNI) NEGATIVE NEGATIVE OPENED:06/05/2019 UA RFLX MICR CULT IF [id number] 23:08:00* Test Item Value Reference Range Comments UA COLOR (test code=COLU) STRAW YEL/STRAW UA APPEARANCE (test code=APPU) CLEAR CLEAR UA GLUCOSE DIPSTICK (test code=DGLUU) NEGATIVE NEGATIVE UA BILIRUBIN DIPSTICK (test code=BILU) NEGATIVE NEGATIVE UA KETONE DIPSTICK (test code=KETU) NEGATIVE NEGATIVE UA SPECIFIC GRAVITY (test code=SGU) 1.001 1.005-1.030 UA BLOOD DIPSTICK (test code=MAIRA) NEGATIVE NEGATIVE UA PH DIPSTICK (test code=GERARDO) 7.0 5.0-7.0 UA PROTEIN DIPSTICK (test code=PROU) NEGATIVE NEGATIVE UA UROBILINIOGEN DIPSTICK (test code=URO) 0.2 mg/dL 0.2-1.0 UA NITRITE DIPSTICK (test code=BOBBY) NEGATIVE NEGATIVE UA LEUKOCYTE ESTERASE DIPSTICK (test code=LEUU) TRACE NEGATIVE UA WBC (test code=WBCU) 0-3 WBC/HPF 0-3 UA RBC (test code=RBCU) 0-3 RBC/HPF 0-3 UA BACTERIA (test code=BACU) TRACE /HPF NONE SEEN UA SQUAMOUS CELLS (test code=SQU) 0-5 /HPF NONE SEEN Indication for culture: Dysuria/FrequencySpecimen Description: CLEAN CATCH- MRI L-SPINE W/O [id number] 17:43:00 FAX: Karan Becca Moreno Pretty [phone] [place]: St: [facility] FAX: Adela Hylton NP [phone] Name: ARSLAN KINNEY [facility] : 1995 Age/S: 24/F [address] [place] [address] Unit #: [id number] Loc: [place] [address] Phys: Adela Hylton NP Acct: [id number] Dis Date: Status: REG ER PHONE #: [phone] Exam Date: 05/11/2019 1607 FAX #: [phone] Reason: lumbar pain, incontin ence of , LLE numb EXAMS: CPT CODE: [id number] MRI L-SPINE W/O CONT [id number] MRI LUMBAR SPINE WITHOUT CONTRAST INDICATION: Lumbar pain, incontinence of , LLE numb. 31 weeks . TECHNIQUE: Unenhanced MRI of the lumbar spine was performed with axial and sagittal, T2 and T1 weighted sequences. COMPARISONS: CT abdomen pelvis 02/11/2017, MRI lumbar spine 08/06/2016 FINDINGS: There is no acute lumbar spine fracture or dislocation. Anterior to po sterior spinal alignment is preserved. The spinal cord and cauda e quina are normal. The spinal cord terminates at the mid L1 vertebral body level. Discs/spinal Canal/neural foramina: L1-L2: T here is no disc bulge. There is no spinal canal or neural foraminal steno sis. L2-L3: There is no disc bulge. There is no spinal canal or neural foraminal stenosis. L3-L4: There is no disc bulge. There is no spinal canal or neural foraminal stenosis. L4-L5: There is no disc bulge. There is no spinal canal or neural foraminal stenosis. L5-S1: There is no disc bulge. There is no spinal canal or neural foraminal stenosis. There is mild right hydronephrosis. There is a 3rd trimester intrauterine gestation in breech presentation consistent with given his tory. IMPRESSION: 1. No acute lumbar process. 2. There is no spinal canal or neural foraminal stenosis at any lumbar level. 3. Normal spinal cord and cauda equina. 4. T here is mild right hydronephrosis, possibly hydronephrosis of . 5. There is an intrauterine gestation in breech presentation. PAGE 1 Signed Report (CONTINUED) FAX: Becca Murphy [phone] [place]: St: REG FAX: Adela Bhardwaj NP [phone] Name: KINNEYARSLAN [facility] : 1995 Age/S: 24/F [address] Unit #: [id number] Loc: [address] [place] [address] Phys: Adela Hylton NP Acct: [id number] Dis Date: Status: REG ER PHONE #: [phone] Exam Date: 05/11/2019 1607 FAX #: [phone] Reason: lumbar pain, incontinence of , LLE numb EXAMS: CPT CODE: [id number] MRI L-SPINE W/O CONT [id number] < Continued> at 1743 Reported and signed by: Franki Benson D.O. CC: Becca Moreno MD; Adela Hylton NP Technologist: Douglas Acosta, RT(R)(CT)(MR) Trnscrd Date/Time/By: 05/11/2019 (1568) : By: [email or web address] Orig Print D/T: S: 05/11/2019 (6331) PAGE 2 Signed Report URINALYSIS [id number] 16:22:00* Test Item Value Reference Range Comments UA COLOR (test code=COLU) NEVAEH YEL/STRAW UA APPEARANCE (test code=APPU) SL CLOUDY CLEAR UA GLUCOSE DIPSTICK (test code=DGLUU) NEGATIVE NEGATIVE UA BILIRUBIN DIPSTICK (test code=BILU) NEGATIVE NEGATIVE UA KETONE DIPSTICK (test code=KETU) NEGATIVE NEGATIVE UA SPECIFIC GRAVITY (test code=SGU) 1.026 1.005-1.030 UA BLOOD DIPSTICK (test code=MAIRA) NEGATIVE NEGATIVE UA PH DIPSTICK (test code=GERARDO) 7.0 5.0-7.0 UA PROTEIN DIPSTICK (test code=PROU) NEGATIVE NEGATIVE UA UROBILINIOGEN DIPSTICK (test code=URO) 2.0 mg/dL 0.2-1.0 UA NITRITE DIPSTICK (test code=BOBBY) NEGATIVE NEGATIVE UA LEUKOCYTE ESTERASE DIPSTICK (test code=LEUU) 3+ NEGATIVE UA WBC (test code=WBCU) 10-20 WBC/HPF 0-3 UA RBC (test code=RBCU) 4-10 RBC/HPF 0-3 UA BACTERIA (test code=BACU) 2+ /HPF NONE SEEN UA SQUAMOUS CELLS (test code=SQU) 11-25 /HPF NONE SEEN UA MUCUS (test code=MUCU) 2+ /LPF NONE SEEN CBC W/AUTO [id number] 16:15:00* Test Item Value Reference Range Comments WHITE BLOOD CELL (test code=WBC) 9.44 x10 3/uL 4.5-11.0 RED BLOOD CELL (test code=RBC) 3.71 x10 6/uL 3.54-5.02 HEMOGLOBIN (test code=HGB) 9.7 g/dL 11.0-15.0 HEMATOCRIT (test code=HCT) 30.6 % 33.0-45.0 MEAN CELL VOLUME (test code=MCV) 82.5 fL 81.0-99.0 MEAN CELL HGB (test code=MCH) 26.1 pg 27.0-33.0 MEAN CELL HGB CONCETRATION (test code=MCHC) 31.7 g/dL 33.0-37.0 RED CELL DISTRIBUTION WIDTH CV (test code=RDW) 13.5 % 11.5-14.5 RED CELL DISTRIBUTION WIDTH SD (test code=RDW-SD) 40.8 fL 37.0-54.0 PLATELET COUNT (test code=PLT) 195 x10 3/uL 150-400 MEAN PLATELET VOLUME (test code=MPV) 12.8 fL 7.0-9.0 NEUTROPHIL % (test code=NT%) 73.7 % 56.0-77.0 IMMATURE GRANULOCYTE % (test code=IG%) 1.5 % 0.0-2.0 LYMPHOCYTE % (test code=LY%) 15.0 % 14.0-32.0 MONOCYTE % (test code=MO%) 8.5 % 4.8-9.0 EOSINOPHIL % (test code=EO%) 1.1 % 0.3-3.7 BASOPHIL % (test code=BA%) 0.2 % 0.0-2.0 NUCLEATED RBC % (test code=NRBC%) 0.0 % 0-0 NEUTROPHIL # (test code=NT#) 6.96 x10 3/uL 2.0-7.6 IMMATURE GRANULOCYTE # (test code=IG#) 0.14 x10 3/uL 0.00-0.03 LYMPHOCYTE # (test code=LY#) 1.42 x10 3/uL 1.0-3.8 MONOCYTE # (test code=MO#) 0.80 x10 3/uL 0.1-0.8 EOSINOPHIL # (test code=EO#) 0.10 x10 3/uL 0.0-0.2 BASOPHIL # (test code=BA#) 0.02 x10 3/uL 0.0-0.2 NUCLEATED RBC # (test code=NRBC#) 0.00 x10 3/uL 0.0-0.1 MANUAL DIFF REQUIRED (test code=MDIFF) NO - US RETROPERITONEAL [id number] 21:45:00 Name: ARSLAN KINNEY [facility] : 1995 Age/S: 24 / F [address] [place] [address] Blvd Unit #: [id number] Loc: [place] [address] Phys: Flory Padilla MD Acct: [id number] Dis Date: Status: ADM IN PHONE #: [phone] Exam Date: 04/03/20192124 FAX #: [phone] Reason: CVA TENDERNESS EXAMS: CPT CODE: [id number] US RETROPERITONEAL COM [id number] ULTRASOUND OF THE KIDNEYS INDICATION: CVA TENDERNESS TECHNIQUE: Renal ultrasound was performed. COMPARISONS: CT abdomen pelvis 02/11/2017 FINDINGS: The abdominal aorta and inferior vena cava are not visualized due to shadowing from bowel. The right kidney demonstrates mild hydronephrosis. The right kidney measures 11.3 cm blair gth. There is no nephrolithiasis or renal mass. The left kidney m easures 10.8 cm length. There is no hydronephrosis, nephrolithiasis or re nal mass. There is a single intrauterine gestation in vertex prese ntation. The urinary bladder is near completely collapsed and reve als no acute process. No ureteral jets were demonstrated on the images. IMPRESSION: 1. There is mild right hydronephros is. The left kidney is normal. 2. Recommend follow-up imaging of th e urinary bladder in an attempt to detect ureteral jets and exclude comp lete ureteral obstruction. at 2144 Reported and signed by: Franki Benson D.O. CC: Becca Moreno MD; Flory Padilla MD Technologist: QUE Natarajan S(A)(OB) Trnscb Date/Time: 04/03/2019 (2144) Howard [id number] Orig Print D/T: S: 04/03/2019 (2147) Probe: PAGE 1 Signed Report URINALYSIS [id number] 20:04:00* Test Item Value Reference Range Comments UA COLOR (test code=COLU) YELLOW YEL/STRAW UA APPEARANCE (test code=APPU) CLEAR CLEAR UA GLUCOSE DIPSTICK (test code=DGLUU) NEGATIVE NEGATIVE UA BILIRUBIN DIPSTICK (test code=BILU) NEGATIVE NEGATIVE UA KETONE DIPSTICK (test code=KETU) NEGATIVE NEGATIVE UA SPECIFIC GRAVITY (test code=SGU) 1.011 1.005-1.030 UA BLOOD DIPSTICK (test code=MAIRA) NEGATIVE NEGATIVE UA PH DIPSTICK (test code=GERARDO) 7.0 5.0-7.0 UA PROTEIN DIPSTICK (test code=PROU) NEGATIVE NEGATIVE UA UROBILINIOGEN DIPSTICK (test code=URO) 0.2 mg/dL 0.2-1.0 UA NITRITE DIPSTICK (test code=BOBBY) NEGATIVE NEGATIVE UA LEUKOCYTE ESTERASE DIPSTICK (test code=LEUU) 2+ NEGATIVE UA WBC (test code=WBCU) 0-3 WBC/HPF 0-3 UA RBC (test code=RBCU) 0-3 RBC/HPF 0-3 UA BACTERIA (test code=BACU) NONE SEEN /HPF NONE SEEN UA SQUAMOUS CELLS (test code=SQU) 0-5 /HPF NONE SEEN UA MUCUS (test code=MUCU) TRACE /LPF NONE SEEN COMPREHENSIVE METABOLIC [id number] 22:16:00* Test Item Value Reference Range Comments SODIUM (test code=NA) 139 mEq/L 134-147 POTASSIUM (test code=K) 3.6 mEq/L 3.4-5.0 CHLORIDE (test code=CL) 109 mEq/L 100-108 CARBON DIOXIDE (test code=CO2) 26 mEq/L 21-33 ANION GAP (test code=GAP) 8 0-20 GLUCOSE (test code=GLU) 79 mg/dL 70-110 BLOOD UREA NITROGEN (test code=BUN) 8 mg/dL 7-18 GLOMERULAR FILTRATION RATE (test code=GFR) 154.3 110-120 Units of measure=ml/min/1.73 m2 CREATININE (test code=CREAT) 0.5 mg/dL 0.6-1.3 TOTAL PROTEIN (test code=PROT) 6.6 g/dL 6.4-8.2 ALBUMIN (test code=ALB) 2.90 g/dL 3.4-5.0 CALCIUM (test code=CA) 8.3 mg/dL 8.0-10.5 BILIRUBIN TOTAL (test code=BILT) 0.20 mg/dL 0.0-1.0 SGOT/AST (test code=AST) 15 IUnit/L 15-37 SGPT/ALT (test code=ALT) 12 IUnit/L 15-65 ALKALINE PHOSPHATASE TOTAL (test code=ALKP) 70 IUnit/L 20-125 COMPREHENSIVE METABOLIC [id number] 22:14:00* Test Item Value Reference Range Comments SODIUM (test code=NA) 139 mEq/L 134-147 POTASSIUM (test code=K) 3.6 mEq/L 3.4-5.0 CHLORIDE (test code=CL) 109 mEq/L 100-108 CARBON DIOXIDE (test code=CO2) 26 mEq/L 21-33 ANION GAP (test code=GAP) 8 0-20 GLUCOSE (test code=GLU) 79 mg/dL 70-110 BLOOD UREA NITROGEN (test code=BUN) 8 mg/dL 7-18 GLOMERULAR FILTRATION RATE (test code=GFR) 154.3 110-120 Units of measure=ml/min/1.73 m2 CREATININE (test code=CREAT) 0.5 mg/dL 0.6-1.3 TOTAL PROTEIN (test code=PROT) g/dL 6.4-8.2 ALBUMIN (test code=ALB) 2.90 g/dL 3.4-5.0 CALCIUM (test code=CA) 8.3 mg/dL 8.0-10.5 BILIRUBIN TOTAL (test code=BILT) mg/dL 0.0-1.0 SGOT/AST (test code=AST) 15 IUnit/L 15-37 SGPT/ALT (test code=ALT) 12 IUnit/L 15-65 ALKALINE PHOSPHATASE TOTAL (test code=ALKP) IUnit/L 20-125 CBC W/AUTO [id number] 22:03:00* Test Item Value Reference Range Comments WHITE BLOOD CELL (test code=WBC) 7.47 x10 3/uL 4.5-11.0 RED BLOOD CELL (test code=RBC) 3.67 x10 6/uL 3.54-5.02 HEMOGLOBIN (test code=HGB) 10.4 g/dL 11.0-15.0 HEMATOCRIT (test code=HCT) 32.5 % 33.0-45.0 MEAN CELL VOLUME (test code=MCV) 88.6 fL 81.0-99.0 MEAN CELL HGB (test code=MCH) 28.3 pg 27.0-33.0 MEAN CELL HGB CONCETRATION (test code=MCHC) 32.0 g/dL 33.0-37.0 RED CELL DISTRIBUTION WIDTH CV (test code=RDW) 14.0 % 11.5-14.5 RED CELL DISTRIBUTION WIDTH SD (test code=RDW-SD) 45.6 fL 37.0-54.0 PLATELET COUNT (test code=PLT) 189 x10 3/uL 150-400 MEAN PLATELET VOLUME (test code=MPV) 11.7 fL 7.0-9.0 NEUTROPHIL % (test code=NT%) 65.4 % 56.0-77.0 IMMATURE GRANULOCYTE % (test code=IG%) 0.7 % 0.0-2.0 LYMPHOCYTE % (test code=LY%) 22.8 % 14.0-32.0 MONOCYTE % (test code=MO%) 9.6 % 4.8-9.0 EOSINOPHIL % (test code=EO%) 1.2 % 0.3-3.7 BASOPHIL % (test code=BA%) 0.3 % 0.0-2.0 NUCLEATED RBC % (test code=NRBC%) 0.0 % 0-0 NEUTROPHIL # (test code=NT#) 4.89 x10 3/uL 2.0-7.6 IMMATURE GRANULOCYTE # (test code=IG#) 0.05 x10 3/uL 0.00-0.03 LYMPHOCYTE # (test code=LY#) 1.70 x10 3/uL 1.0-3.8 MONOCYTE # (test code=MO#) 0.72 x10 3/uL 0.1-0.8 EOSINOPHIL # (test code=EO#) 0.09 x10 3/uL 0.0-0.2 BASOPHIL # (test code=BA#) 0.02 x10 3/uL 0.0-0.2 NUCLEATED RBC # (test code=NRBC#) 0.00 x10 3/uL 0.0-0.1 MANUAL DIFF REQUIRED (test code=MDIFF) NO URINALYSIS [id number] 21:12:00* Test Item Value Reference Range Comments UA COLOR (test code=COLU) YELLOW YEL/STRAW UA APPEARANCE (test code=APPU) SL CLOUDY CLEAR UA GLUCOSE DIPSTICK (test code=DGLUU) NEGATIVE NEGATIVE UA BILIRUBIN DIPSTICK (test code=BILU) NEGATIVE NEGATIVE UA KETONE DIPSTICK (test code=KETU) NEGATIVE NEGATIVE UA SPECIFIC GRAVITY (test code=SGU) 1.024 1.005-1.030 UA BLOOD DIPSTICK (test code=MAIRA) NEGATIVE NEGATIVE UA PH DIPSTICK (test code=GERARDO) 6.0 5.0-7.0 UA PROTEIN DIPSTICK (test code=PROU) NEGATIVE NEGATIVE UA UROBILINIOGEN DIPSTICK (test code=URO) 0.2 mg/dL 0.2-1.0 UA NITRITE DIPSTICK (test code=BOBBY) NEGATIVE NEGATIVE UA LEUKOCYTE ESTERASE DIPSTICK (test code=LEUU) TRACE NEGATIVE UA WBC (test code=WBCU) 4-9 WBC/HPF 0-3 UA RBC (test code=RBCU) 0-3 RBC/HPF 0-3 UA BACTERIA (test code=BACU) TRACE /HPF NONE SEEN UA SQUAMOUS CELLS (test code=SQU) 0-5 /HPF NONE SEEN UA MUCUS (test code=MUCU) 4+ /LPF NONE SEEN
--- OUTSIDE RECORDS SUMMARY | 2020-02-02 18:05 | XMS REPORT | Summary of Care ---
Author Author [facility] - Health Organization [facility] - Health Address Unknown Phone Unavailable Care Team Providers Care Manuscript Editor Name Role Phone Pcp, Patient Does Not Have A PCP Reason for Visit * Reason Comments Numbness * Auth/Cert Referred By Contact Referred To Contact Status Reason Specialty Diagnoses / Procedures [facility] Emergency Dept [address] [place] [address] Emergency Medicine Encounter Details Care Team Description Date Type Department Keke Griffith, DO [address] [facility] [address] [place] [address] Sore throat (Primary Dx); Non-recurrent acute serous otitis media of right ear 02/02/2020 Emergency [facility]Emergency Department [address] [place] [address] Allergies No Known Allergiesdocumented as of this encounter (statuses as of 02/02/2020) Medications End Date Status Medication Sig Dispensed Refills Start Date Active SERTraline (ZOLOFT) 50 mg Take 50 mg by 0 tablet mouth daily. Active multivit with Take by 0 calcium,iron,min mouth. (MULTIPLE VITAMIN, WOMENS ORAL) Active cephALEXin (KEFLEX) 500 Take 1 15 capsule 0 201 mg capsuleIndications: capsule by 9 Abdominal pain, mouth 3 unspecified abdominal (three) times location daily. Active ibuprofen 600 mg Take 1 tablet 30 tablet 0 tabletIndications: by mouth 9 Abdominal pain, every 6 (six) unspecified abdominal hours as location needed for Pain (scale 4-6). Active azithromycin (ZITHROMAX Take 1 tablet 1 Package 0 Z-SAMMY) 250 mg by mouth 0 tabletIndications: daily. Take Non-recurrent acute 500 mg day 1, serous otitis media of then 250 mg right ear days 2 to 5. documented as of this encounter (statuses as of 02/02/2020) Active Problems Problem Noted Date Double vision 09/21/2019 Abdominal pain 09/20/2019 documented as of this encounter (statuses as of 02/02/2020) Social History Date Tobacco Use Types Packs/Day Years Used Never Smoker Smokeless Tobacco: Never Used Drinks/Week oz/Week Comments Alcohol Use Never Alcohol Habits Answer Date Recorded How often do you have a drink containing alcohol? Never 09/20/2019 How many drinks containing alcohol do you have on Not asked a typical day when you are drinking? How often do you have six or more drinks on one Not asked occasion? Sex Assigned at Date Recorded Not on file Industry Job Start Date Occupation Not on file Not on file Not on file Travel End Travel History Travel Start No recent travel history available. documented as of this encounter Last Filed Vital Signs Reading Time Taken Comments Vital Sign 127/64 02/02/2020 9:24 AM CLERICAL SECRETARY Blood Pressure 98 02/02/2020 9:24 AM CLERICAL SECRETARY Pulse 36.6 C (97.8 F) 02/02/2020 9:24 AM CLERICAL SECRETARY Temperature 18 02/02/2020 9:24 AM CLERICAL SECRETARY Respiratory Rate 99% 02/02/2020 9:24 AM CLERICAL SECRETARY Oxygen Saturation - - Inhaled Oxygen Concentration 61.2 kg (135 lb) 02/02/2020 9:24 AM CLERICAL SECRETARY Weight - - Height 21.79 09/20/2019 2:14 PM CDT Body Mass Index documented in this encounter Discharge Instructions * Instructions* Keke Griffith, - 02/02/2020 NO LIFE-THREATENING FINDINGS ON TODAY'S EXAM. FOLLOW-UP RECOMMENDATIONS: RECOMMEND FOLLOW-UP WITH A PRIMARY CARE PROVIDER OR SPECIALIST NEXT BUSINESS DAY , ESPECIALLY IF NO IMPROVEMENT IN SYMPTOMS. MAY FOLLOW-UP WITH A PROVIDER OF YOUR CHOICE, SUCH : 1. A PHYSICIAN OF YOUR CHOICE 2. [facility], . LOCATIONS IN [facility] 3. [facility], [address], [place]; [phone] OR, IF YOU WISH TO FOLLOW-UP WITHIN THE [facility], MAY TRY THESE OP TIONS (CLINIC APPOINTMENTS AVAILABLE ON [id number]-[id number] BASIS): 1. SCHEDULE AN APPOINTMENT ONLINE AT [email or web address] 2. OR CALL THE [facility] ACCESS CENTER AT OR 3. OR CALL YOUR [facility] PHYSICIAN'S OFFICE DIRECTLY IF YOU ARE ALREADY AN ESTABLISH ED [facility] PATIENT. RETURN TO ER FOR WORSENING OF SYMPTOMS. * Attachments The following attachments cannot be sent through Care Everywhere.* Ear Problems, [facility] ([place]) * Otitis Media, ER, [facility] ([place]) * Otitis Media, [facility] ([place]) * Pharyngitis, [facility] ([place]) * Sore Throat, When You Have a ([place]) documented in this encounter Plan of Treatment Date/Time Name Type Priority Associated Diagnoses 02/02/2020 9:40 AM CLERICAL SECRETARY RAPID STREP SCREEN FOR LAB STAT Sore throat GROUP A Order Schedule Name Type Priority Associated Diagnoses ONCE for 1 Occurrences starting 02/02/2020 until 02/02/2020 RAPID STREP SCREEN FOR LAB Routine Sore throat GROUP A Health Maintenance Due Date Last Done Comments MENINGOCOCCAL B VACCINES 2007 (1 of 2 - Risk Bexsero 2-dose series) DTaP,Tdap,and Td Vaccines 02/10/2008 (1 - Tdap) HPV VACCINES (1 - Female 02/10/2008 2-dose series) VARICELLA VACCINES (1 of 09/12/2009 2 - 2-dose childhood series) PAP SMEAR 2018 INFLUENZA VACCINE (#1) 2019 09/29/2014, 07/29/2010, 08/15/2009 CHLAMYDIA SCREENING 09/22/2020 09/22/2019 MENINGOCOCCAL VACCINE Aged Out No longer eligible based on patient's age to complete this topic PNEUMOCOCCAL 0-64 YEARS Aged Out No longer eligible based COMBINED SERIES on patient's age to complete this topic documented as of this encounter Results Not on filedocumented in this encounter Visit Diagnoses Diagnosis Sore throat - Primary Acute pharyngitis Non-recurrent acute serous otitis media of right ear documented in this encounter Insurance Type Payer Benefit Subscriber ID Effective Phone Address Plan / Dates Group Medicaid [place] [facility] [place] xxxxxxxxx 2019- PLAN - MANAGED MEDICAID [facility] documented as of this encounter
--- NOTE | 2020-02-02 19:31 | Diagnostic Imaging Report ---
EXAMINATION: Head CT HISTORY: Facial weakness, numbness, history of pituitary cyst COMPARISON: None available TECHNIQUE: Helical axial images of the head were obtained. Reformatted coronal and sagittal images from the axial data. Dose modulation, iterative reconstruction, and/or weight based adjustment of the mA/kV was utilized to reduce the radiation dose to as low as reasonably achievable. Image quality: Motion/streaking artifact limits the evaluation of the skull base and posterior cranial fossa. FINDINGS: Parenchyma: 1. No abnormal densities. 2. No mass or hemorrhage. No CT evidence of acute territorial vascular insult. Extra-axial spaces:No abnormal density. No extra-axial fluid collections Brain volume: Normal for age. Ventricles: No hydrocephalus or displacement. Arteries: No density suggestive of thrombus. Dural sinuses: No abnormal density. Foramen magnum: No mass, Chiari malformation, or basilar invagination. Sella: No obvious mass or cystic lesion is identified on the current study. Paranasal/mastoid sinuses: Imaged portions unremarkable. Skull/Scalp: No lytic or blastic lesions. No fractures. IMPRESSION: 1. No acute intracranial hemorrhage or CT evidence of acute cortical infarct. 2. No discrete sellar abnormalities. Signed by: Dr. Elisa Goetz M.D. on 02/02/2020 7:29 PM
== END 2020-02-02 20:45 | disposition home or self-care (01) ==
LOC: ER 18:02
DX: G51.0 Bell's palsy (principal); F41.9 Anxiety disorder, unspecified
CPT/HCPCS: 70450

== ENCOUNTER → 2020-02-06 | Emergency (ER) | payer OTHER ==
[~2020-02-06] VITALS: Ht 167.6 cm; Wt 49.9 kg
== END | disposition home or self-care (01) ==
LOC: ER 15:38
DX: H53.8 Other visual disturbances (principal)

== ENCOUNTER 2020-03-31 23:18 | Emergency (ER) | payer OTHER ==
[~2020-03-31] VITALS: Ht 167.6 cm; Wt 63.5 kg
--- OUTSIDE RECORDS SUMMARY | 2020-03-31 23:21 | XMS REPORT | Summary of Care ---
Author Author ARSLAN FINK M.D. Organization Unknown Address Unknown Phone Unavailable Care Team Providers Care Gas Regulator Repairer Helper Name Role Phone NEPTALI FINK M.D. Unavailable Unavailable NATASHA NUNEZ MEG WILKS Unavailable Unavailable Unavailable Unavailable Functional Status Name Dates Details Functional status health issues are not documented Status: Name Dates Details Cognitive status health issues are not d ocumented Status: Problems Name Dates Details Transient neurological symptoms (781.99, R29.818) Status: Active Facial weakness (781.94, R29.810) Status: Active Diplopia (368.2, H53.2) Status: Active Paresthesias (782.0, R20.2) Status: Active Medications Name Dates Details Medications not documented Allergies and Adverse Reactions Name Dates Details Allergy history not documented Status: Past Medical History Name Dates Details No pertinent past medical history (V49.8 9, Z78.9) Status: Resolved Procedures Procedure Dates Details MRI Brain w/wo contrast [id number] Date: 09-Feb-2020 MRA Neck without contrast 26479 Date: 09-Feb-2020 MRA Brain without contrast 46439 Date: 09-Feb-2020 History of Pituitary surgery Completed History of Spinal surgery Completed Immunization Name Dates Details Immunizations not documented Family History Name Dates Details Family history of multiple sclerosis (V1 7.2, Z82.0) Status: Active Family history of Lupus (710.0, M32.9) Status: Active Social History Name Dates Details - Status: Name Dates Details Never smoked tobacco (finding) Vital Signs Date Test Result Details [id number] Systolic blood pressure 116 mm[Hg] Status: Comments : Location: LUE; Position: Sitting Diastolic blood pressure 77 mm[Hg] Status: Comment s: Location: LUE; Position: Sitting Body height 66 in Status: Weight 138.6 lb Status: Body mass index (BMI) [Ratio] 22.37 kg/m2 Status: Body surface area Derived from formula 1.71 m2 S tatus: Heart Rate 78 /min Status: Results Date Description Value Details Results not documented Plan of Care Name Dates Details Planned Observations MRI Brain w/wo contrast 43574 On: 09-Feb-2020 Intent MRA Neck without contrast [id number] On: 09-Feb-2020 Intent MRA Brain without contrast 66069 On: 09-Feb-2020 Intent Planned Goals not documented Interventions Provided Labs/Procedures/Imaging* Tobacco Use Screening; Done: 08 Feb 2020 Plan* - MRI brain w/ and w/o con * - MRA H/N/ Discussion/Summary* Mrs. Gibbons is a 24 y/o woman with a PMH of pituitary cyst and h/o tethered cord who presents to clinic with multiple neurological complaints including right sided facial weakness, right sided head paresthesias, ringing in her ears and double vision which has been present for the past 6 months. Her neurological exam is non focal with no evidence of facial weakness on my exam but she does report some decreased sensation to light touch in the right V2 distribution. She has already undergone CT brain which was unremarkable but will plane to get MRI brain w/ and w/o con as well as MRA H/N to assess for possible cause of her symptoms. * She is also noted to have a PHQ9 score = 9 and GAD7 score = 12. We discussed possible referral to psychiatry vs psychology but the patient has declined. Instructions Name Dates Details Instructions not documented Encounters Appointment; NEPTALI FINK M.D. Encounter Diagnosis: Problem not documented On: 08-Feb-2020 8:30
--- OUTSIDE RECORDS SUMMARY | 2020-03-31 23:21 | XMS REPORT | Summary of Care ---
Author Author ARSLAN Chopra M.A. [facility] Unknown Address Unknown Phone Unavailable Care Team Providers Care Odd Jobs Day Worker Name Role Phone NEPTALI FINK M.D. Unavailable Unavailable MEG KAUR DO Unavailable Unavailable Unavailable Unavailable Functional Status Name Dates Details Functional status health issues are not documented Status: Name Dates Details Cognitive status health issues are not d ocumented Status: Problems Name Dates Details Active medical history not documented Status: Medications Name Dates Details Medications not documented Allergies and Adverse Reactions Name Dates Details Allergy history not documented Status: Procedures Procedure Dates Details Procedures not documented Immunization Name Dates Details Immunizations not documented Social History Name Dates Details - Status: Name Dates Details Never smoked tobacco (finding) Vital Signs Date Test Result Details [id number] Systolic blood pressure 116 mm[Hg] Status: Comments [...] of Care Name Dates Details Planned Observations Planned Goals not documented Interventions Provided Labs/Procedures/Imaging* Tobacco Use Screening; Done: 08 Feb 2020 Instructions Name Dates Details Instructions not documented Encounters Appointment; NEPTALI FINK M.D. Encounter Diagnosis: Problem not documented On: 08-Feb-2020 8:30
--- OUTSIDE RECORDS SUMMARY | 2020-03-31 23:21 | XMS REPORT | Summary of Care ---
Author Author ARSLAN Chopra M.A. [facility] Unknown Address Unknown Phone Unavailable Care Team Providers Care Bonding Supervisor Name Role Phone NEPTALI FINK M.D. Unavailable Unavailable MEG KAUR DO Unavailable Unavailable Unavailable Unavailable Functional Status Name Dates Details Functional status health issues are not documented Status: Name Dates Details Cognitive status health issues are not d ocumented Status: Problems Name Dates Details Diplopia (368.2, H53.2) Status: Active Transient neurological symptoms (781.99, R29.818) Status: Active Medications Name Dates Details Medications not documented Allergies and Adverse Reactions Name Dates Details Allergy history not documented Status: Procedures Procedure Dates Details MRI Brain w/wo contrast [id number] Date: 09-Feb-2020 MRA Neck without contrast 26426 Date: 09-Feb-2020 MRA Brain without contrast 61220 Date: 09-Feb-2020 Immunization Name Dates Details Immunizations not documented Social History Name Dates Details - Status: Name Dates Details Never smoked tobacco (finding) Vital Signs Date Test Result Details [id number] Systolic blood pressure 116 mm[Hg] Status: Comments [...] Details Planned Observations MRI Brain w/wo contrast [id number] On: 09-Feb-2020 Intent MRA Neck without contrast 48364 On: 09-Feb-2020 Intent MRA Brain without contrast [id number] On: 09-Feb-2020 Intent Planned Goals not documented Interventions Provided Labs/Procedures/Imaging* Tobacco Use Screening; Done: 08 Feb 2020 Plan* - MRI brain w/ and w/o con * - MRA H/N/ Instructions Name Dates Details Instructions not documented Encounters Appointment; BROWN, NEPTALI, M.D. Encounter Diagnosis: Problem not documented On: 08-Feb-2020 8:30
[2020-04-01] MEDS ORDERED: KETOROLAC TROMETHAMINE 30 MG/ML VIAL IV STA (00:19)
[2020-04-01] MEDS ORDERED: KETOROLAC TROMETHAMINE 30 MG/ML VIAL ONE (00:26)
--- NOTE | 2020-04-01 00:26 | Diagnostic Imaging Report ---
EXAMINATION: CXR 2 VIEW - HOPD INDICATION: ^CHEST PAIN ^[id number] ^[id number] COMPARISON: None FINDINGS: TUBES and LINES: None. LUNGS: Lungs are well inflated. Lungs are clear. There is no evidence of pneumonia or pulmonary edema. PLEURA: No pleural effusion or pneumothorax. HEART AND MEDIASTINUM: The cardiomediastinal silhouette is unremarkable. BONES AND SOFT TISSUES: No acute osseous lesion. Soft tissues are unremarkable. UPPER ABDOMEN: No free air under the diaphragm. IMPRESSION: No acute thoracic radiographic abnormality. Signed by: Darrion Garcia MD on 04/01/2020 12:22 AM
[2020-04-01 00:29] VITALS: BP 121/70
== END 2020-04-01 00:43 | disposition home or self-care (01) ==
LOC: FSED 23:18
DX: R07.89 Other chest pain (principal)
CPT/HCPCS: 71046; 80053; 81003; 81025; 82553; 84484; 85025; 93005; 99284; J1885

== ENCOUNTER 2020-06-26 21:54 | Emergency (ER) | payer OTHER ==
[~2020-06-26] VITALS: Ht 167.6 cm; Wt 62.1 kg
[2020-06-26] MEDS ORDERED: ONDANSETRON HCL INJ 2MG/ML 2ML 2 MG/ML VIAL IV STA (22:19)
[2020-06-26] MEDS ORDERED: KETOROLAC TROMETHAMINE 30 MG/ML VIAL IV STA (22:19)
[2020-06-26] MEDS ORDERED: KETOROLAC TROMETHAMINE 30 MG/ML VIAL ONE (22:45)
[2020-06-26] MEDS ORDERED: ONDANSETRON HCL INJ 2MG/ML 2ML 2 MG/ML VIAL ONE (22:45)
--- NOTE | 2020-06-26 23:24 | Emergency Department Note ---
History of Present Illnes History of Present Illness Chief Complaint: Abdominal Complaints History of Present Illness This is a 25 year old female Chief Complaint Comment PT C/O ABD FEELING LIKE IT IS ON FIRE, STATES SHE HAS EPIGASTRIC PAIN AND HAS VOMITTED TWICE TODAY, ALSO C/O RT FLANK PAIN THAT RADIATES TO FRONT, SYMPTOMS ALL BEGAN THIS AFTERNOON, HAS H/O ANXIETY, STATES SHE LIVES WITH 3 FAMILY MEMBERS THAT ARE POSITIVE FOR COVID . Historian: Patient Arrival Mode: Car Onset (how long ago): day(s) (2) Location: RLQ Quality: PAIN Radiation: Denies non-radiation, Denies back, Denies neck, Denies extremity, Denies abdomen, Denies periumbilical, Denies flank, Denies proximal, Denies distal, Denies other Severity: moderate Onset quality: gradual Duration (how long): day(s) (2) Progression: waxing and waning Chronicity: new Context: Denies recent illness, Denies recent surgery, Denies recent immobilization, Denies recent travel, Denies trauma/injury, Denies new medications, Denies hx of DVT/PE, Denies non-compliance w/ medications, Denies other Relieving factors: none Exacerbating factors: none Associated symptoms: Reports nausea/vomiting; Denies denies other symptoms, Denies confusion, Denies chest pain, Denies cough, Denies diaphoresis, Denies fever/chills, Denies headaches, Denies loss of appetite, Denies malaise, Denies rash, Denies seizure, Denies shortness of breath, Denies syncope, Denies weakness, Denies other Treatments prior to arrival: none Past Medical/Family History Physician Review I have reviewed the patient's past medical and family history. Any updates have been documented here. 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 Other Surgery: BACK SURGERY Social History Smoking Cessation: Never Smoker Counseling Performed: No Alcohol Use: None Any Illegal Drug Use: No Other Last Tetanus: UTD Any Pre-Existing Lines (PICC,: No Review of Systems Review of Systems Constitutional: Reports no symptoms EENTM: Reports no symptoms Cardiovascular: Reports no symptoms Respiratory: Reports no symptoms Gastrointestinal: Reports as per HPI Genitourinary: Reports no symptoms Musculoskeletal: Reports no symptoms Integumentary: Reports no symptoms Neurological: Reports no symptoms Psychological: Reports no symptoms Endocrine: Reports no symptoms Hematological/Lymphatic: Reports no symptoms Physical Exam Related Data Allergies: Coded Allergies: No Known Allergies (Unverified , 01/05/14) Triage Vital Signs Vital Signs Date Time Temp Pulse Resp B/P (MAP) Pulse Ox O2 Delivery O2 Flow Rate FiO2 06/26/20 22:09 98.9 120 18 135/81 100 Room Air Vital signs reviewed: Yes Physical Exam CONSTITUTIONAL Constitutional: Present well-developed, Present well-nourished HENT HENT: Present normocephalic, Present atraumatic, Present oropharynx any r/moist, Present nose normal HENT L/R: Present left ext ear normal, Present right ext ear normal EYES Eyes: Reports PERRL, Reports conjunctivae normal NECK Neck: Present ROM normal PULMONARY Pulmonary: Present effort normal, Present breath sounds normal CARDIOVASCULAR Cardiovascular: Present regular rhythm, Present heart sounds normal, Present capillary refill normal, Present normal rate GASTROINTESTINAL Abdominal: Present soft, Present bowel sounds normal, Present tender (RLQ) GENITOURINARY Genitourinary: Present exam deferred SKIN Skin: Present warm, Present dry MUSCULOSKELETAL Musculoskeletal: Present ROM normal NEUROLOGICAL Neurological: Present alert, Present oriented x 3, Present no gross motor or sensory deficits PSYCHOLOGICAL Psychological: Present mood/affect normal, Present judgement normal Results Laboratory Lab results reviewed: Yes Imaging Imaging results reviewed: Yes Assessment & Plan Medical Decision Making MDM APPENDICITIS UTI RENAL COLIC Reassessment Reassessment BETTER Assessment & Plan Final Impression: (1) Abdominal pain, right lower quadrant (2) Renal colic on right side (3) Kidney stone Last Vital Signs Date Time Temp Pulse Resp B/P (MAP) Pulse Ox O2 Delivery O2 Flow Rate FiO2 06/26/20 22:09 98.9 120 18 135/81 100 Room Air Home Meds Reported Medications Vit/Iron Fumarate/Fa ( TABLET) 1 Each Tablet 10/23/16 Medications in the ED Ondansetron HCl 4 mg NOW STAT IV Last administered on 06/26/20at 22:40; Admin Dose 4 MG; Start 06/26/20 at 22:19; Stop 06/26/20 at 22:20; Status UNV Ketorolac Tromethamine 15 mg ONCE STAT IV ; Start 06/26/20 at 22:19; Stop 06/26/20 at 22:20; Status JAMIN TAY MD Jun 26, 2020 23:24
--- NOTE | 2020-06-26 23:39 | Diagnostic Imaging Report ---
EXAM: CT Abdomen and Pelvis WITHOUT contrast INDICATION: Abdominal pain, nausea, vomiting, epigastric pain, right flank pain, right lower quadrant. COMPARISON: None. TECHNIQUE: Abdomen and pelvis were scanned utilizing a multidetector helical scanner from the lung base to the pubic symphysis without administration of IV contrast. Absence of intravenous contrast decreases sensitivity for detection of focal lesions and vascular pathology. Coronal and sagittal reformations were obtained. Routine protocol was performed. IV CONTRAST: None ORAL CONTRAST: None COMPLICATIONS: None RADIATION DOSE: Total DLP: 359 mGy*cm Estimated effective dose: (DLP x 0.015 x size factor) mSv CTDIvol has been reviewed. It is below the limits set by the Radiation Protocol Committee (RPC). Dose modulation, iterative reconstruction, and/or weight based adjustment of the mA/kV was utilized to reduce the radiation dose to as low as reasonably achievable. FINDINGS: LINES and TUBES: None. LOWER THORAX: Unremarkable HEPATOBILIARY: No focal hepatic lesions. No biliary ductal dilation. GALLBLADDER: No radio-opaque stones or sludge. No wall thickening. SPLEEN: No splenomegaly. PANCREAS: No focal masses or ductal dilatation. ADRENALS: No adrenal nodules KIDNEYS/URETERS: Punctate nonobstructive left renal inferior pole calculus. No hydronephrosis. No cystic or solid mass lesions. GI TRACT: No abnormal distention, wall thickening, or evidence of bowel obstruction. Appendix is normal. PELVIC ORGANS/BLADDER: Unremarkable. LYMPH NODES: No lymphadenopathy. VESSELS: Unremarkable. PERITONEUM / RETROPERITONEUM: No free air or fluid. BONES: Unremarkable. SOFT TISSUES: Unremarkable. IMPRESSION: Punctate nonobstructive left renal inferior pole calculus, otherwise no acute abnormality on this noncontrast CT. Signed by: Franki Nash DO on 06/26/2020 11:35 PM
--- OUTSIDE RECORDS SUMMARY | 2020-06-28 20:26 | XMS REPORT | Continuity of Care Document ---
Author Author [facility] t Organization [facility] Address [address] [place] [address] Phone Unavailable Care Team Providers Care Manufacturing Clerk Name Role Phone DO Julián KAUR DO PCP JAMIN QUICK Attphys Unavailable ARIK MCKNIGHT Attphys Unavailable NEPTALI FINK M.D. Attphys Unavailable Daiana SOUSA Attphys Unavailable Keke Griffith DO Attphys Payers Payer Name Policy Type Policy Number Effective Date Expiration Date Roger liang [facility] [id number] 2019 00:00:00 [facility] Problems Condition Name Condition Details Condition Category Status Onset Date Resolution Date Last Treatment Date Treating Clinician Comments Source Urinary retention Urinary retention Disease Active 2016-04-26 00:00:00 [facility] Viral URI with cough Viral URI with cough Disease Active 00:00:00 [facility] UTI (urinary tract infection) UTI (urinary tract infection) Disease Active 2016-04-26 00:00:00 [place] Sarah jones Diplopia Diplopia Problem Active [facility] Transient neurological symptoms Transient neurological symptoms Pro blem Active [facility] Facial weakness Facial weakness Problem Active [facility] Paresthesias Paresthesias Problem Active [facility] Right lower quadrant abdominal pain Problem Active [facility] Renal colic on right side Problem Active [facility] Calculus of kidney Problem Active [facility] Allergies, Adverse Reactions, Alerts Allergy Name Allergy Type Status Severity Reaction(s) Onset Date Inacti ve Date Treating Clinician Comments Source No Known Allergies DA Active U 2020-01-03 00:00:00 [facility] No Known Allergies DA Active U 2019-08-14 00:00:00 [facility] No Known Allergies DA Active U 2019-07-28 00:00:00 [facility] No Known Allergies DA Active U 2016-12-11 00:00:00 [facility] Family History Family Member Diagnosis Comments Start Date Stop Date Source aunt Family history of multiple sclerosis [facility] aunt Family history of Lupus [facility] Social History Social Habit Start Date Stop Date Quantity Comments Source Sex Assigned At [facility] Smoking Status Start Date Stop Date Source Never smoked tobacco (finding) [facility] Medications Ordered Medication Name Filled Medication Name Start Date Stop Da te Current Medication? Ordering Clinician Indication Dosage Frequency Signature (SIG) Comments Components Source Vit/Iron Fumarate/Fa ( Tablet) 1 Each TABLET Vit/Iron Fumarate/Fa ( Tablet) 1 Each TABLET Yes [facility] Paroxetine Hcl Paroxetine Hcl 2016-10-23 00:00:00 No 10 Daily [facility] Vital Signs Vital Name Observation Time Observation Value Comments Source Weight 2020-06-26 22:09:00 137 [lb_av] [facility] BMI (Body Mass Index) 2020-06-26 22:09:00 22.1 kg/m2 [facility] Body Temperature 2020-04-01 00:29:00 97.0 [degF] [facility] Weight 2020-03-31 23:26:00 140 [lb_av] [facility] BMI (Body Mass Index) 2020-03-31 23:26:00 22.6 kg/m2 [facility] Systolic blood pressure 2020-02-08 08:55:00 116 mm[Hg] Loca tion: LUE; Position: Sitting [facility] Diastolic blood pressure 2020-02-08 08:55:00 77 mm[Hg] Loc ation: LUE; Position: Sitting [facility] Body height 2020-02-08 08:55:00 66 [in_us] [facility] Weight 2020-02-08 08:55:00 138.6 [lb_av] [facility] Body mass index (BMI) [Ratio] 2020-02-08 08:55:00 22.37 kg/m2 [facility] Heart Rate 2020-02-08 08:55:00 78 /min [facility] Procedures Procedure Date / Time Performed Performing Clinician Sour e MRI Brain w/wo contrast 66798 2020 00:00:00 [facility] MRA Neck without contrast 67732 2020 00:00:00 [facility] MRA Brain without contrast 18737 2020 00:00:00 [facility] EMERGENCY DEPT VISIT 2020-02-06 00:00:00 [facility] Computed tomography of brain without radiopaque contrast 00:00:00 SEBASTIÁN CUNHA [facility] EMERGENCY DEPT VISIT 2020-02-02 00:00:00 [facility] History of Pituitary surgery [facility] History of Spinal surgery [facility] Plan of Care Planned Activity Planned Date Details Comments Source Future Scheduled Test 2020-08-29 00:00:00 IMM Influenza Seas onal Aug to January (>/= 19 yrs) [code = IMM Influenza Seasonal Aug to January (>/= 19 yrs)] [facility] Diagnostic Test Pending 2020 00:00:00 MRI Brain w/wo c ontrast 01440 [code = 54187] [facility] Diagnostic Test Pending 2020 00:00:00 MRA Neck without contrast 63081 [code = 32537] [facility] Diagnostic Test Pending 2020 00:00:00 MRA Brain withou t contrast 36103 [code = 24365] [facility] Diagnostic Test Pending 2020 00:00:00 MRI Brain w/wo c ontrast 51754 [code = 94238] [facility] Diagnostic Test Pending 2020 00:00:00 MRA Neck without contrast 32925 [code = 35479] [facility] Diagnostic Test Pending 2020 00:00:00 MRA Brain withou t contrast 07946 [code = 83944] [facility] Future Scheduled Test 2018 00:00:00 Screening for alisha gnant neoplasm of cervix (procedure) [code = 530605739] [facility] Kidney Stones [facility] Encounters Start Date/Time End Date/Time Encounter Type Admission Type Attendi [facility] Care Department Encounter ID Source 2020-06-26 22:20:00 2020-06-27 00:09:00 Departed Emergency Room JAMIN QUICK [facility] [id number] I [facility] 2020-03-31 23:18:00 2020-04-01 00:43:00 Departed Emergency Room 1 ROXANAN ARIK [facility] [id number] [facility] 2020-02-08 08:30:00 2020-02-08 08:30:00 Appointment; NEPTALI FINK M.D. NEPTALI FINK M.D. [facility] Neurology - [facility] [id number] [facility] 2020-02-06 15:38:00 2020-02-06 15:38:00 Registered Emergency Room [facility] [id number] [facility] 2020-02-02 17:02:00 2020-02-02 19:45:00 Departed Emergency Room 1 JON SOUSA [facility] [id number] [facility] 2020-02-02 09:18:35 2020-02-02 09:53:00 Emergency Keke El [facility] ([facility]) [id number] Results Test Description Test Time Test Comments Results Result Comments Source CT ABD/PEL WO CONTRAST-HOPD 2020-06-26 23:32:00 [facility] [address] [address] Patient Name: ARSLAN KINNEY MR #: [id number] : 1995 Age/Sex: 25/F Req #: [id number] Adm Physician: Ordered by: JAMIN QUICK MD Report #: [id number] Location: [facility] Room/Bed: Procedure: [id number] HOPD/CT ABD/PEL WO CONTRAST-HOPD Exam Date: 06/26/20 Exam Time: 2253 REPORT STATUS: Signed EXAM: CT Abdomen and Pelvis WITHOUT contrast INDICATION: Abdominal pain, nausea, vomiting, epigastric pain, right flank pain, right lower quadrant. COMPARISON: None. TECHNIQUE: Abdomen and pelvis were scanned utilizing a multidetector helical scanner from the lung base to the pubic symphysis without administration of IV contrast. Absence of intravenous contrast decreases sensitivity for detection of focal lesions and vascular pathology. Coronal and sagittal reformations were obtained. Routine protocol was performed. IV CONTRAST: None ORAL CONTRAST: None COMPLICATIONS: None RADIATION DOSE: Total DLP: 359 mGy*cm Estimated effective dose: (DLP x 0.015 x size factor) mSv CTDIvol has been reviewed. It is below the limits set by the Radiation Protocol Committee (RPC). Dose modulation, iterative reconstruction, and/or weight based adjustment of the mA/kV was utilized to reduce the radiation dose to as low as reasonably achievable. FINDINGS: LINES and TUBES: None. LOWER THORAX: Unremarkable HEPATOBILIARY: No focal hepatic lesions. No biliary ductal dilation. GALLBLADDER: No radio-opaque stones or sludge. No wall thickening. SPLEEN: No splenomegaly. PANCREAS: No focal masses or ductal dilatation. ADRENALS: No adrenal nodules KIDNEYS/URETERS: Punctate nonobstructive left renal inferior pole calculus. No hydronephrosis. No cystic or solid mass lesions. GI TRACT: No abnormal distention, wall thickening, or evidence of bowel obstruction. Appendix is normal. PELVIC ORGANS/BLADDER: Unremarkable. LYMPH NODES: No lymphadenopathy. VESSELS: Unremarkable. PERITONEUM / RETROPERITONEUM: No free air or fluid. BONES: Unremarkable. SOFT TISSUES: Unremarkable. IMPRESSION: Punctate nonobstructive left renal inferior pole calculus, otherwise no acute abnormality on this noncontrast CT. Signed by: Franki Frye DO on 06/26/2020 11:35 PM Dictated By: FRANKI FRYE DO 34 Transcribed By: REZA on 06/26/202334 COPY TO: JAMIN QUICK MD - CT C-SPINE W/O CONTRAST 2020-05-27 20:46:00 Name: ARSLAN KINNEY [facility] : 1995 Age/S: 25 / F [address] [facility] Unit #: [id number] [place] [address] Phys: Bryson Rodrigues MD Acct: [id number] Dis Date: Status: REG ER PHONE #: [phone] Exam Date: 05/27/20202022 FAX #: [phone] Reason: bilateral upper extremity numbness EXAMS: CPT CODE: [id number] CT C-SPINE W/O CONTRAST 00078 HISTORY: headache with numbness TECHNIQUE: Noncontrast 2.[address] of the head and cervical spine. Examination acquired within 24 hours of arrival. Automated exposure control for dose reduction. COMPARISON: CT scan of the brain December 25, 2019 FINDINGS: No lacerations or contusions of the scalp or facial soft tissues. Calvarium and skull base are intact. No acute hemorrhage. No intracranial mass, mass effect, or midline shift. No effacement of the sulci or lebron-white matter interface. No cortical atrophy. No signs of white matter small- vessel disease. No hydrocephalus.. No extra-axial fluid collection. Visualized paranasal sinuses are clear. Mastoid air cells and middle ear cavities are clear. Orbital contents are unremarkable. No acute fracture of the cervical spine. No subluxation. Reversal of cervical lordosis. Craniocervical and cervicothoracic articulations are appropriate. Vertebral body heights are preserved. Intervertebral disc heights are preserved. No prevertebral or paraspinal soft tissue abnormality. Lung apices are clear. IMPRESSION: Negative CT head and cervical spine. Location: [facility] at 6 Reported and signed by: Trevor Garcia MD PAGE 1 Signed Report (CONTINUED) Name: ARSLAN KINNEY [facility] : 1995 Age/S: 25 / F [address] [facility] Unit #: [id number] Loc: [place] [address] Phys: Bryson Rodrigues MD Acct: [id number] Dis Date: Status: REG ER PHONE #: [phone] Exam Date: 05/27/20202022 FAX #: [phone] Reason: bilateral upper extremity numbness EXAMS: CPT CODE: [id number] CT C-SPINE W/O CONTRAST 70956 <Continued> CC: Bryson Rodrigues MD Technologist:FRANCA DOUGLASS RT(R),CT CTDI: DLP: Trnscb Date/Time: 05/27/2020 (2045) [email or web address] Orig Print D/T: S: 05/27/2020 (2048) PAGE 2 Signed Report - CT HEAD/BRAIN W/O CONT 2020-05-27 20:46:00 N lucy: KINNEY,MEAGAN [facility] : 1995 Age/S: 25 / F [address] [facility] Unit #: [id number] Loc: [place] [address] Phys: Bryson Rodrigues MD Acct: [id number] Dis Date: Status: REG ER PHONE #: [phone] Exam Date: 05/27/20202022 FAX #: [phone] Reason: headache with numbness EXAMS: CPT CODE: [id number] CT HEAD/BRAIN W/O CONT 79404 HISTORY: headache with numbness TECHNIQUE: Noncontrast 2.[address] of the head and cervical spine. Examination acquired within 24 hours of arrival. Automated exposure control for dose reduction. COMPARISON: CT scan of the brain December 25, 2019 FINDINGS: No lacerations or contusions of the scalp or facial soft tissues. Calvarium and skull base are intact. No acute hemorrhage. No intracranial mass, mass effect, or midline shift. No effacement of the sulci or lebron-white matter interface. No cortical atrophy. No signs of white matter small- vessel disease. No hydrocephalus.. No extra-axial fluid collection. Visualized paranasal sinuses are clear. Mastoid air cells and middle ear cavities are clear. Orbital contents are unremarkable. No acute fracture of the cervical spine. No subluxation. Reversal of cervical lordosis. Craniocervical and cervicothoracic articulations are appropriate. Vertebral body heights are preserved. Intervertebral disc heights are preserved. No prevertebral or paraspinal soft tissue abnormality. Lung apices are clear. IMPRESSION: Negative CT head and cervical spine. Location: [facility] at 2046 Reported and signed by: Trevor Garcia MD PAGE 1 Signed Report (CONTINUED) Name: ARSLAN KINNEY [facility] : 1995 Age/S: 25 / F [address] [facility] Unit #: [id number] Loc: [place], [place] [address] Phys: Bryson Rodrigues MD Acct: [id number] Dis Date: Status: REG ER PHONE #: [phone] Exam Date: 05/27/20202022 FAX #: [phone] Reason: headache with numbness EXAMS: CPT CODE: [id number] CT HEAD/BRAIN W/O CONT 63290 <Continued> CC: Bryson Rodrigues MD Technologist:FRANCA DOUGLASS RT(R),CT CTDI: DLP: Trnscb Date/Time: 05/27/2020 (2045) [email or web address] Orig Print D/T: S: 05/27/2020 (2048) PAGE 2 Signed Report CXR 2 VIEW - HOPD 2020-04-01 00:22:[address] [address] Patient Name: ARSLAN KINNEY MR #: [id number] : 1995 Age/Sex: 25/F Req #: [id number] Adm Physician: Ordered by: ARIK MCKNIGHT DO Report #: [id number] Location: [facility] Room/Bed: Procedure: [id number] HOPD/CXR 2 VIEW - HOPD Exam Date: 03/31/20 Exam Time: 2349 REPORT STATUS: Signed EXAMINATION: CXR 2 VIEW - HOPD INDICATION: CHEST PAIN [id number] COMPARISON: None FINDINGS: TUBES and LINES: None. LUNGS: Lungs are well inflated. Lungs are clear. There is no evidence of pneumonia or pulmonary edema. PLEURA: No pleural effusion or pneumothorax. HEART AND MEDIASTINUM: The cardiomediastinal silhouette is unremarkable. BONES AND SOFT TISSUES: No acute osseous lesion. Soft tissues are unremarkable. UPPER ABDOMEN: No free air under the diaphragm. IMPRESSION: No acute thoracic radiographic abnormality. Signed by: Darrion Drummond MD on 04/01/2020 12:22 AM Dictated By: DARRION DRUMMODN MD Transcribed By: REZA on 04/01/2021 COPY TO: ARIK MCKNIGHT DO CT BRAIN WO 2020-02-02 19:26:00 [facility] [address] [address] Patient Name: ARSLAN KINNEY MR #: [id number] : 1995 Age/Sex: 24/F Req #: [id number] Adm Physician: Ordered by: SEBASTIÁN CUNHA 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 Report #: [id number] Location: ER Room/Bed: Procedure: [id number] CT/CT BRAIN WO Exam Date: 02/02/20 Exam Time: 1900 REPORT STATUS: Signed EXAMINATION: Head CT HISTORY: Facial weakness, numbness, history of pituitary cyst COMPARISON: None available TECHNIQUE: Helical axial images of the head were obtained. Reformatted coronal and sagittal images from the axial data. Dose modulation, iterative reconstruction, and/or weight based adjustment of the mA/kV was utilized to reduce the radiation dose to as low as reasonably achievable. Image quality: Motion/streaking artifact limits the evaluation of the skull base and posterior cranial fossa. FINDINGS: Parenchyma: 1. No abnormal densities. 2. No mass or hemorrhage. No CT evidence of acute territorial vascular insult. Extra-axial spaces:No abnormal density. No extra-axial fluid collections Brain volume: Normal for age. Ventricles: No hydrocephalus or displacement. Arteries: No density suggestive of thrombus. Dural sinuses: No abnormal density. Foramen magnum: No mass, Chiari malformation, or basilar invagination. Sella: No obvious mass or cystic lesion is identified on the current study. Paranasal/mastoid sinuses: Imaged portions unremarkable. Skull/Scalp: No lytic or blastic lesions. No fractures. IMPRESSION: 1. No acute intracranial hemorrhage or CT evidence of acute cortical infarct. 2. No discrete sellar abnormalities. Signed by: Dr. Prema Goetz M.D. on 02/02/2020 7:29 PM Dictated By: PREMA GOETZ MD 28 Transcribed By: REZA on 02/02/201928 COPY TO: SEBASTIÁN CUNHA NP BASIC METABOLIC PANEL 2019-12-25 13:29:00 Test Item SODIUM (test code = NA) 145 mmol/L 136-145 N POTASSIUM (test code = K) 3.9 mmol/L 3.5-5.1 N CHLORIDE (test code = CL) 108 mmol/L 101-109 N CARBON DIOXIDE (test code = CO2) 29.7 mmol/L 21-32 N ANION GAP (test code = GAP) 11 mmol/L 10-20 N GLUCOSE (test code = GLU) 87 mg/dL 74-106 N BLOOD UREA NITROGEN (test code = BUN) 11 mg/dL 3-21 N GLOMERULAR FILTRATION RATE (test code = GFR) > 60 mL/min >=60 Estimated GFR by using Modified MDRD formula.Chronic kidney disease is defined as either kidney damageor GFR <60 mL/min/1.73 m2 for >3 months. CREATININE (test code = CREAT) 0.66 mg/dL 0.55-1.3 N BUN/CREATININE RATIO (test code = BUN/CREA) 16.7 10-20 N CALCIUM (test code = CA) 8.8 mg/dL 8.4-10.2 N UR HCG [id number] 13:25:00* Test Item Value Reference Range Interpretation Comments UR HCG QUAL (test code = HCGQLU) NEGATIVE This HCGQL test is NOT applicable for MALE patients.Check with nurse about probable order error.If Tumor Marker Test needed, nurse should order test "HCGTU"(Test #[id number]) PROTHROMBIN [id number] 13:23:00* Test Item Value Reference Range Interpretation Comments PROTHROMBIN TIME PATIENT (test code = PTP) 10.3 seconds 9.0-13.0 N INTERNATIONAL NORMAL RATIO (test code = INR) 1.0 0.8-1.2 N The therapeutic range for oral anticoagulant therapy [...] (2.5-3.5) IS PATIENT ON ANTICOAGULANTS? NTHROMBOPLASTIN TIME [id number] 13:23:00* Test Item Value Reference Range Interpretation Comments THROMBOPLASTIN TIME PARTIAL (test code = PTT) 21.7 seconds 25.5-34. 3 L Therapeutic Range for patients on Heparin Therapy is 2 to2.5 times their baseline PTT level. IS PATIENT ON ANTICOAGULANTS? NCBC W/AUTO [id number] 13:00:00* Test Item Value Reference Range Interpretation Comments WHITE BLOOD CELL (test code = WBC) 4.5 K/mm3 4.5-12.5 N RED BLOOD CELL (test code = RBC) 4.96 mill/mm3 3.7-5.2 N HEMOGLOBIN (test code = HGB) 14.3 gram/dL 11.5-15.5 N HEMATOCRIT (test code = HCT) 42.6 % 36.0-46.0 N MEAN CELL VOLUME (test code = MCV) 85.9 fL 80-98 N MEAN CELL HGB (test code = MCH) 28.8 picogram 27.0-33.0 N MEAN CELL HGB CONCETRATION (test code = MCHC) 33.6 gram/dL 33.0-36. 0 N RED CELL DISTRIBUTION WIDTH (test code = RDW) 11.6 % 11.6-16. 2 N RED CELL DISTRIBUTION WIDTH SD (test code = RDW-SD) 36.3 fL 37 .0-51.0 L PLATELET COUNT (test code = PLT) 126 K/mm3 150-450 L MEAN PLATELET VOLUME (test code = MPV) 11.9 fL 6.7-11.0 H NEUTROPHIL % (test code = NT%) 47.7 % 39.0-69.0 N LYMPHOCYTE % (test code = LY%) 38.7 % 25.0-55.0 N MONOCYTE % (test code = MO%) 8.0 % 0.0-10.0 N EOSINOPHIL % (test code = EO%) 3.8 % 0.0-5.0 N BASOPHIL % (test code = BA%) 0.9 % 0.0-1.0 N NEUTROPHIL # (test code = NT#) 2.16 K/mm3 1.8-7.7 N LYMPHOCYTE # (test code = LY#) 1.75 K/mm3 1.0-5.0 N MONOCYTE # (test code = MO#) 0.36 K/mm3 0-0.8 N EOSINOPHIL # (test code = EO#) 0.17 K/mm3 0.0-0.5 N BASOPHIL # (test code = BA#) 0.04 K/mm3 0.0-0.2 N MANUAL DIFF REQUIRED (test code = MDIFF) NO - CT HEAD/BRAIN W/O [id number] 12:45:00 Name: ARSLAN KINNEY [facility] : 1995 Age/S: 24 / F [address] [facility] Unit #: [id number] Loc: [place] [address] Phys: Power Cohen MD Acct: [id number] Dis Date: Status: REG ER PHONE #: [phone] Exam Date: 12/25/2019 1200 FAX #: [phone] Reason: Headache EXAMS: CPT CODE: [id number] CT HEAD/BRAIN W/O CONT 10584 HISTORY: Headache TECHNIQUE: Noncontrast 2.5 mm axial [...] are unremarkable. IMPRESSION: Negative CT head. Location: [facility] E lectronically Signed by Trevor Garcia MD on 12/25/2019 at 1245 Reported and signed by: Trevor Garcia MD CC: Power Cohen MD Technologist:Pia Montez CTDI: DLP: Trnscb Date/Time: 12/25/2019 (1245) [email or web address] Orig Print D/T: S: 12/25/2019 (4577) PAGE 1 Signed Report URINALYSIS [id number] 12:40:00* Test Item Value Reference Range Interpretation Comments UA COLOR (test code = COLU) YELLOW YELLOW UA APPEARANCE (test code = APPU) HAZY CLEAR A UA GLUCOSE DIPSTICK (test code = DGLUU) norm mg/dL NEGATIVE UA BILIRUBIN DIPSTICK (test code = BILU) NEGATIVE mg/dL NEGATIVE UA KETONE DIPSTICK (test code = KETU) neg mg/dL NEGATIVE UA SPECIFIC GRAVITY (test code = SGU) 1.010 1.001-1.035 UA BLOOD DIPSTICK (test code = MAIRA) 150 (3+) Elías/uL NEGATIVE A UA PH DIPSTICK (test code = GERARDO) 7.0 5.0-8.0 UA PROTEIN DIPSTICK (test code = PROU) neg mg/dL Neg-15 UA UROBILINIOGEN DIPSTICK (test code = URO) norm mg/dL 0.0-0.2 UA NITRITE DIPSTICK (test code = BOBBY) NEGATIVE NEGATIVE UA LEUKOCYTE ESTERASE DIPSTICK (test code = LEUU) 500 Warren/uL (3+) u L NEGATIVE A UA WBC (test code = WBCU) 6-10 per HPF 0-5 A UA RBC (test code = RBCU) 3-5 per HPF 0-5 A UA EPITHELIAL CELLS (test code = EPIU) MANY per HPF Few UA BACTERIA (test code = BACU) FEW per HPF NONE Urine Source? Clean CatchURINALYSIS [id number] 12:38:00* Test Item Value Reference Range Interpretation Comments UA COLOR (test code = COLU) YELLOW YELLOW UA APPEARANCE (test code = APPU) HAZY CLEAR A UA GLUCOSE DIPSTICK (test code = DGLUU) norm mg/dL NEGATIVE UA BILIRUBIN DIPSTICK (test code = BILU) NEGATIVE mg/dL NEGATIVE UA KETONE DIPSTICK (test code = KETU) neg mg/dL NEGATIVE UA SPECIFIC GRAVITY (test code = SGU) 1.010 1.001-1.035 UA BLOOD DIPSTICK (test code = MAIRA) 150 (3+) Elías/uL NEGATIVE A UA PH DIPSTICK (test code = GERARDO) 7.0 5.0-8.0 UA PROTEIN DIPSTICK (test code = PROU) neg mg/dL Neg-15 UA UROBILINIOGEN DIPSTICK (test code = URO) norm mg/dL 0.0-0.2 UA NITRITE DIPSTICK (test code = BOBBY) NEGATIVE NEGATIVE UA LEUKOCYTE ESTERASE DIPSTICK (test code = LEUU) 500 Warren/uL (3+) u L NEGATIVE A UA WBC (test code = WBCU) per HPF 0-5 UA RBC (test code = RBCU) per HPF 0-5 UA EPITHELIAL CELLS (test code = EPIU) per HPF Few UA BACTERIA (test code = BACU) per HPF NONE Urine Source? Clean Catch- CT ABD PELVIS [id number] 10:47:00 Name: ARSLAN KINNEY [facility] : 1995 Age/S: 24 / F [address] [facility] Unit #: [id number] [place]: [place] [address] Phys: Darrion Metzger MD Acct: [id number] Di s Date: Status: REG ER PHONE #: Exam Date: 10/16/2019 1025 FAX #: Reason: upper abd pain EXAMS: CPT CODE: [id number] CT ABD PELVIS W/CONT 59648 REASON FOR EXAM: upper abd pain EXAM [...] 1 Signed Report (CONTINUED) Name: ARSLAN KINNEY [facility] : 1995 Age/S: 24 / F [address] [facility] Unit #: [id number] Loc: [place] [address] Phys: Darrion Metzger MD Acct: [id number] Dis Date: Status: REG ER PHONE #: [phone] Exam Date: 10/16 1026 FAX #: [phone] Reason: upper abd pain EXAMS: CPT CODE: [id number] CT ABD PELVIS W/CONT 74 177 <Continued> abnormalities of the gallbladder, pancreas, or stomach to explain the patient's upper abdominal pain. Location: [facility] at 1047 Reported and signed by: Trevor Garcia MD CC: Becca Hernandez MD; Darrion Metzger MD Technologist:Juanito Eubanks RT(R),CT CTDI: DLP: Trnscb Date/Time: 10/16/2019 (5226) [email or web address] Orig Print D/T: S: 10/16/2019 (5678) PAGE 2 Signed Report URINALYSIS [id number] 10:06:00* Test Item Value Reference Range Interpretation Comments UA COLOR (test code = COLU) YELLOW YELLOW UA APPEARANCE (test code = APPU) HAZY CLEAR A UA GLUCOSE DIPSTICK (test code = DGLUU) norm mg/dL NEGATIVE UA BILIRUBIN DIPSTICK (test code = BILU) NEGATIVE mg/dL NEGATIVE UA KETONE DIPSTICK (test code = KETU) neg mg/dL NEGATIVE UA SPECIFIC GRAVITY (test code = SGU) 1.005 1.001-1.035 UA BLOOD DIPSTICK (test code = MAIRA) neg Elías/uL NEGATIVE UA PH DIPSTICK (test code = GERARDO) 7.0 5.0-8.0 UA PROTEIN DIPSTICK (test code = PROU) neg mg/dL Neg-15 UA UROBILINIOGEN DIPSTICK (test code = URO) norm mg/dL 0.0-0.2 UA NITRITE DIPSTICK (test code = BOBBY) NEGATIVE NEGATIVE UA LEUKOCYTE ESTERASE DIPSTICK (test code = LEUU) 100 Warren/uL (1+) u L NEGATIVE A UA WBC (test code = WBCU) 20-30 per HPF 0-5 A UA RBC (test code = RBCU) 0-2 per HPF 0-5 UA EPITHELIAL CELLS (test code = EPIU) MANY per HPF Few UA BACTERIA (test code = BACU) MODERATE per HPF NONE A URINALYSIS W/O [id number] 10:06:00* Test Item Value Reference Range Interpretation Comments UA MICROSCOPIC NEEDED? (test code = UAMICRO) YES UR HCG [id number] 10:06:00* Test Item Value Reference Range Interpretation Comments UR HCG QUAL (test code = HCGQLU) NEGATIVE This HCGQL test is NOT applicable for MALE patients.Check with nurse about probable order error.If Tumor Marker Test needed, nurse should order test "HCGTU"(Test #550.72793) COMPREHENSIVE METABOLIC [id number] 10:02:00* Test Item Value Reference Range Interpretation Comments SODIUM (test code = NA) 141 mmol/L 136-145 N POTASSIUM (test code = K) 3.7 mmol/L 3.5-5.1 N CHLORIDE (test code = CL) 105 mmol/L 101-109 N CARBON DIOXIDE (test code = CO2) 27.9 mmol/L 21-32 N ANION GAP (test code = GAP) 12 mmol/L 10-20 N GLUCOSE (test code = GLU) 94 mg/dL 74-106 N BLOOD UREA NITROGEN (test code = BUN) 10 mg/dL 3-21 N CREATININE (test code = CREAT) 0.68 mg/dL 0.55-1.3 N BUN/CREATININE RATIO (test code = BUN/CREA) 14.7 10-20 N TOTAL PROTEIN (test code = PROT) 7.4 g/dL 6.5-8.4 N ALBUMIN (test code = ALB) 4.0 g/dL 3.4-4.8 N GLOBULIN (test code = GLOB) 3.4 G/DL 1-10 N ALBUMIN/GLOBULIN RATIO (test code = A/G) 1.18 RATIO 0.75-1.50 N CALCIUM (test code = CA) 8.8 mg/dL 8.4-10.2 N BILIRUBIN TOTAL (test code = BILT) 0.60 mg/dL 0.0-1.0 N SGOT/AST (test code = AST) 22 U/L 6-32 N SGPT/ALT (test code = ALT) 22 U/L 12-78 N N ote: Change in REFERENCE RANGE due to new reagent method. ALKALINE PHOSPHATASE TOTAL (test code = ALKP) 84 U/L 38-126 N [id number] 10:02:00* Test Item Value Reference Range Interpretation Comments LIPASE (test code = LIP) 159 U/L 128-270 N URINALYSIS [id number] 09:59:00* Test Item Value Reference Range Interpretation Comments UA COLOR (test code = COLU) YELLOW YELLOW UA APPEARANCE (test code = APPU) CLEAR UA GLUCOSE DIPSTICK (test code = DGLUU) norm mg/dL NEGATIVE UA BILIRUBIN DIPSTICK (test code = BILU) NEGATIVE mg/dL NEGATIVE UA KETONE DIPSTICK (test code = KETU) neg mg/dL NEGATIVE UA SPECIFIC GRAVITY (test code = SGU) 1.005 1.001-1.035 UA BLOOD DIPSTICK (test code = MAIRA) neg Elías/uL NEGATIVE UA PH DIPSTICK (test code = GERARDO) 7.0 5.0-8.0 UA PROTEIN DIPSTICK (test code = PROU) neg mg/dL Neg-15 UA UROBILINIOGEN DIPSTICK (test code = URO) norm mg/dL 0.0-0.2 UA NITRITE DIPSTICK (test code = BOBBY) NEGATIVE NEGATIVE UA LEUKOCYTE ESTERASE DIPSTICK (test code = LEUU) 100 Warren/uL (1+) u L NEGATIVE A UA WBC (test code = WBCU) per HPF 0-5 UA RBC (test code = RBCU) per HPF 0-5 UA EPITHELIAL CELLS (test code = EPIU) per HPF Few UA BACTERIA (test code = BACU) per HPF NONE URINALYSIS W/O [id number] 09:59:00* Test Item Value Reference Range Interpretation Comments UA MICROSCOPIC NEEDED? (test code = UAMICRO) YES UR HCG [id number] 09:59:00* Test Item Value Reference Range Interpretation Comments UR HCG QUAL (test code = HCGQLU) NEGATIVE This HCGQL test is NOT applicable for MALE patients.Check with nurse about probable order error.If Tumor Marker Test needed, nurse should order test "HCGTU"(Test #550.44967) URINALYSIS [id number] 09:59:00* Test Item Value Reference Range Interpretation Comments UA COLOR (test code = COLU) YELLOW YELLOW UA APPEARANCE (test code = APPU) CLEAR UA GLUCOSE DIPSTICK (test code = DGLUU) norm mg/dL NEGATIVE UA BILIRUBIN DIPSTICK (test code = BILU) NEGATIVE mg/dL NEGATIVE UA KETONE DIPSTICK (test code = KETU) neg mg/dL NEGATIVE UA SPECIFIC GRAVITY (test code = SGU) 1.005 1.001-1.035 UA BLOOD DIPSTICK (test code = MAIRA) neg Elías/uL NEGATIVE UA PH DIPSTICK (test code = GERARDO) 7.0 5.0-8.0 UA PROTEIN DIPSTICK (test code = PROU) neg mg/dL Neg-15 UA UROBILINIOGEN DIPSTICK (test code = URO) norm mg/dL 0.0-0.2 UA NITRITE DIPSTICK (test code = BOBBY) NEGATIVE NEGATIVE UA LEUKOCYTE ESTERASE DIPSTICK (test code = LEUU) 100 Warren/uL (1+) u L NEGATIVE A UA WBC (test code = WBCU) per HPF 0-5 UA RBC (test code = RBCU) per HPF 0-5 UA EPITHELIAL CELLS (test code = EPIU) per HPF Few UA BACTERIA (test code = BACU) per HPF NONE URINALYSIS W/O [id number] 09:59:00* Test Item Value Reference Range Interpretation Comments UA MICROSCOPIC NEEDED? (test code = UAMICRO) YES UR HCG [id number] 09:59:00* Test Item Value Reference Range Interpretation Comments UR HCG QUAL (test code = HCGQLU) NEGATIVE This HCGQL test is NOT applicable for MALE patients.Check with nurse about probable order error.If Tumor Marker Test needed, nurse should order test "HCGTU"(Test #550.30400) URINALYSIS W/O [id number] 09:52:00* Test Item Value Reference Range Interpretation Comments UA COLOR (test code = COLU) YELLOW UA APPEARANCE (test code = APPU) CLEAR UA BILIRUBIN DIPSTICK (test code = BILU) NEGATIVE UA SPECIFIC GRAVITY (test code = SGU) 1.001-1.035 UA PH DIPSTICK (test code = GERARDO) 5.0-8.0 UA UROBILINIOGEN DIPSTICK (test code = URO) mg/dL 0.0-0.2 UA NITRITE DIPSTICK (test code = BOBBY) NEGATIVE UA LEUKOCYTE ESTERASE DIPSTICK (test code = LEUU) uL NEGA TIVE UA MICROSCOPIC NEEDED? (test code = UAMICRO) UR HCG [id number] 09:52:00* Test Item Value Reference Range Interpretation Comments UR HCG QUAL (test code = HCGQLU) NEGATIVE This HCGQL test is NOT applicable for MALE patients.Check with nurse about probable order error.If Tumor Marker Test needed, nurse should order test "HCGTU"(Test #550.84394) CBC W/AUTO [id number] 09:45:00* Test Item Value Reference Range Interpretation Comments WHITE BLOOD CELL (test code = WBC) 6.8 K/mm3 4.5-12.5 N RED BLOOD CELL (test code = RBC) 4.42 mill/mm3 3.7-5.2 N HEMOGLOBIN (test code = HGB) 12.6 gram/dL 11.5-15.5 N HEMATOCRIT (test code = HCT) 38.7 % 36.0-46.0 N MEAN CELL VOLUME (test code = MCV) 87.6 fL 80-98 N MEAN CELL HGB (test code = MCH) 28.5 picogram 27.0-33.0 N MEAN CELL HGB CONCETRATION (test code = MCHC) 32.6 gram/dL 33.0-36. 0 L RED CELL DISTRIBUTION WIDTH (test code = RDW) 12.5 % 11.6-16. 2 N RED CELL DISTRIBUTION WIDTH SD (test code = RDW-SD) 40.7 fL 37 .0-51.0 N PLATELET COUNT (test code = PLT) 195 K/mm3 150-450 N MEAN PLATELET VOLUME (test code = MPV) 11.2 fL 6.7-11.0 H NEUTROPHIL % (test code = NT%) 68.0 % 39.0-69.0 N LYMPHOCYTE % (test code = LY%) 22.1 % 25.0-55.0 L MONOCYTE % (test code = MO%) 7.7 % 0.0-10.0 N EOSINOPHIL % (test code = EO%) 1.5 % 0.0-5.0 N BASOPHIL % (test code = BA%) 0.6 % 0.0-1.0 N NEUTROPHIL # (test code = NT#) 4.59 K/mm3 1.8-7.7 N LYMPHOCYTE # (test code = LY#) 1.49 K/mm3 1.0-5.0 N MONOCYTE # (test code = MO#) 0.52 K/mm3 0-0.8 N EOSINOPHIL # (test code = EO#) 0.10 K/mm3 0.0-0.5 N BASOPHIL # (test code = BA#) 0.04 K/mm3 0.0-0.2 N MANUAL DIFF REQUIRED (test code = MDIFF) NO BASIC METABOLIC [id number] 21:16:00* Test Item Value Reference Range Interpretation Comments SODIUM (test code = NA) 139 mEq/L 134-147 N POTASSIUM (test code = K) 3.7 mEq/L 3.4-5.0 N CHLORIDE (test code = CL) 107 mEq/L 100-108 N CARBON DIOXIDE (test code = CO2) 28 mEq/L 21-33 N ANION GAP (test code = GAP) 8 0-20 N GLUCOSE (test code = GLU) 88 mg/dL 70-110 N BLOOD UREA NITROGEN (test code = BUN) 13 mg/dL 7-18 N GLOMERULAR FILTRATION RATE (test code = GFR) 104.6 110-120 L Units of measure = ml/min/1.73 m2 CREATININE (test code = CREAT) 0.7 mg/dL 0.6-1.3 N CALCIUM (test code = CA) 9.1 mg/dL 8.0-10.5 N HEPATIC FUNCTION [id number] 21:16:00* Test Item Value Reference Range Interpretation Comments TOTAL PROTEIN (test code = PROT) 8.1 g/dL 6.4-8.2 N ALBUMIN (test code = ALB) 4.70 g/dL 3.4-5.0 N BILIRUBIN TOTAL (test code = BILT) 0.4 MG/DL <1.5 N BILIRUBIN DIRECT (test code = BILD) 0.10 MG/DL 0.0-0.30 N BILIRUBIN INDIRECT (test code = BILIND) 0.30 MG/DL SGOT/AST (test code = AST) 19 IUnit/L 15-37 N SGPT/ALT (test code = ALT) 22 IUnit/L 15-65 N ALKALINE PHOSPHATASE TOTAL (test code = ALKP) 86 IUnit/L 20-125 N [id number] 21:16:00* Test Item Value Reference Range Interpretation Comments LIPASE (test code = LIP) 154 IUnit/L 73-393 N BASIC METABOLIC [id number] 21:08:00* Test Item Value Reference Range Interpretation Comments SODIUM (test code = NA) 139 mEq/L 134-147 N POTASSIUM (test code = K) 3.7 mEq/L 3.4-5.0 N CHLORIDE (test code = CL) 107 mEq/L 100-108 N CARBON DIOXIDE (test code = CO2) 28 mEq/L 21-33 N ANION GAP (test code = GAP) 8 0-20 N GLUCOSE (test code = GLU) 88 mg/dL 70-110 N BLOOD UREA NITROGEN (test code = BUN) 13 mg/dL 7-18 N GLOMERULAR FILTRATION RATE (test code = GFR) 110-120 CREATININE (test code = CREAT) mg/dL 0.6-1.3 CALCIUM (test code = CA) 9.1 mg/dL 8.0-10.5 N HEPATIC FUNCTION [id number] 21:08:00* Test Item Value Reference Range Interpretation Comments TOTAL PROTEIN (test code = PROT) g/dL 6.4-8.2 ALBUMIN (test code = ALB) g/dL 3.4-5.0 BILIRUBIN TOTAL (test code = BILT) MG/DL <1.5 BILIRUBIN DIRECT (test code = BILD) MG/DL 0.0-0.30 SGOT/AST (test code = AST) IUnit/L 15-37 SGPT/ALT (test code = ALT) IUnit/L 15-65 ALKALINE PHOSPHATASE TOTAL (test code = ALKP) IUnit/L 20-125 [id number] 21:08:00* Test Item Value Reference Range Interpretation Comments LIPASE (test code = LIP) 154 IUnit/L 73-393 N UA RFLX MICR CULT IF [id number] 20:28:00* Test Item Value Reference Range Interpretation Comments UA COLOR (test code = COLU) YELLOW YEL/STRAW UA APPEARANCE (test code = APPU) CLOUDY CLEAR A UA GLUCOSE DIPSTICK (test code = DGLUU) NEGATIVE NEGATIVE UA BILIRUBIN DIPSTICK (test code = BILU) NEGATIVE NEGATIVE UA KETONE DIPSTICK (test code = KETU) NEGATIVE NEGATIVE UA SPECIFIC GRAVITY (test code = SGU) 1.018 1.005-1.030 N UA BLOOD DIPSTICK (test code = MAIRA) NEGATIVE NEGATIVE UA PH DIPSTICK (test code = GERARDO) 6.0 5.0-7.0 N UA PROTEIN DIPSTICK (test code = PROU) NEGATIVE NEGATIVE UA UROBILINIOGEN DIPSTICK (test code = URO) 0.2 mg/dL 0.2-1.0 UA NITRITE DIPSTICK (test code = BOBBY) NEGATIVE NEGATIVE UA LEUKOCYTE ESTERASE DIPSTICK (test code = LEUU) 3+ NEGA TIVE A UA WBC (test code = WBCU) 21-50 WBC/HPF 0-3 A UA RBC (test code = RBCU) 4-10 RBC/HPF 0-3 UA WBC NO REFLEX (test code = WBCUCL) 21-50 WBC/HPF 0-3 A UA BACTERIA (test code = BACU) TRACE /HPF NONE SEEN UA SQUAMOUS CELLS (test code = SQU) 36-50 /HPF NONE SEEN A UA MUCUS (test code = MUCU) 2+ /LPF NONE SEEN A Indication for culture: Suprapubic PainSpecimen Description: CLEAN CATCHUR HCG [id number] 20:24:00* Test Item Value Reference Range Interpretation Comments UR HCG QUAL (test code = HCGQLU) NEGATIVE NEGATIVE CBC W/AUTO [id number] 20:20:00* Test Item Value Reference Range Interpretation Comments WHITE BLOOD CELL (test code = WBC) 5.84 x10 3/uL 4.5-11.0 N RED BLOOD CELL (test code = RBC) 4.85 x10 6/uL 3.54-5.02 N HEMOGLOBIN (test code = HGB) 14.0 g/dL 11.0-15.0 N HEMATOCRIT (test code = HCT) 43.0 % 33.0-45.0 N MEAN CELL VOLUME (test code = MCV) 88.7 fL 81.0-99.0 N MEAN CELL HGB (test code = MCH) 28.9 pg 27.0-33.0 N MEAN CELL HGB CONCETRATION (test code = MCHC) 32.6 g/dL 33.0-37. 0 L RED CELL DISTRIBUTION WIDTH CV (test code = RDW) 12.9 % 11.5- 14.5 N RED CELL DISTRIBUTION WIDTH SD (test code = RDW-SD) 41.2 fL 37 .0-54.0 N PLATELET COUNT (test code = PLT) 225 x10 3/uL 150-400 N MEAN PLATELET VOLUME (test code = MPV) 12.5 fL 7.0-9.0 H NEUTROPHIL % (test code = NT%) 45.7 % 56.0-77.0 L IMMATURE GRANULOCYTE % (test code = IG%) 0.3 % 0.0-2.0 N LYMPHOCYTE % (test code = LY%) 43.8 % 14.0-32.0 H MONOCYTE % (test code = MO%) 7.4 % 4.8-9.0 N EOSINOPHIL % (test code = EO%) 1.9 % 0.3-3.7 N BASOPHIL % (test code = BA%) 0.9 % 0.0-2.0 N NUCLEATED RBC % (test code = NRBC%) 0.0 % 0-0 N NEUTROPHIL # (test code = NT#) 2.67 x10 3/uL 2.0-7.6 N IMMATURE GRANULOCYTE # (test code = IG#) 0.02 x10 3/uL 0.00-0.03 N LYMPHOCYTE # (test code = LY#) 2.56 x10 3/uL 1.0-3.8 N MONOCYTE # (test code = MO#) 0.43 x10 3/uL 0.1-0.8 N EOSINOPHIL # (test code = EO#) 0.11 x10 3/uL 0.0-0.2 N BASOPHIL # (test code = BA#) 0.05 x10 3/uL 0.0-0.2 N NUCLEATED RBC # (test code = NRBC#) 0.00 x10 3/uL 0.0-0.1 N MANUAL DIFF REQUIRED (test code = MDIFF) NO - US ABDOMEN [id number] 20:05:00 Name: ARSLAN KINNEY [facility] : 1995 Age/S: 24 / F [address] [place] [address] Unit #: [id number] Loc: [place] [address] Phys: Reginaldo Romero 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 Acct: [id number] Dis Date: Status: REG ER PHONE #: [phone] Exam Date: 09/25/20191958 FAX #: [phone] Reason: RUQ abd pain EXAMS: CPT CODE: [id number] US ABDOMEN LTD 81020 PROCEDURE: RIGHT UPPER QUADRANT ABDOMINAL ULTRASOUND INDICATION: [...] Romero NP Technologist: Magda Li RDMS (Daiana) Trnnjb Date/Time: 09/25/2019 (2004) [email or web address] Orig Print D/T: S: 09/25/2019 (2007) Probe: PAGE 1 Signed Report [id number] 05:09:00* Test Item Value Reference Range Interpretation Comments ESTRADIOL (test code = ESTRA) 21.4 pg/mL () Adult Female: Follicular phase 12.5 - 166.0 Ovulation phase 85.8 - 498.0 Luteal phase 43.8 - 211.0 Postmenopausal <6.0 - 54.7 1st trimester 215.0 - >4300.0 Girls (1-10 years) 6.0 - 27.0Roche ECLIA methodologyPerformed At: [facility] [address] [id number] Abhishek Matos MD Ph:[phone] [id number] 05:09:00* Test Item Value Reference Range Interpretation Comments PROLACTIN (test code = PROLAC) 56.7 ng/mL 4.8-23.3 H Performed At: [facility] [address] [place], [place] [id number] Abhishek Matos MD Ph:[phone] - RETRO [id number] 14:02:00Patient Name: ARSLAN KINNEY Unit No: [id number] EXAMS: CPT CODE: [id number] US RETRO LTD 12948 CLINICAL HISTORY: hematuria Comparison: None Location: W1 [...] Alejandra Saldana Probe: Trscr Dt/Tm: 08/15/2019 (1402) by:[email or web address] Printed Date/Time: 08/15/2019 (9294) Name: ARSLAN KINNEY [facility] Phys: [id number] - Forrest Andrea MD [id number] : 1995 Age: 24 Sex: [place] [address] Loc: P.0618 1 Exam Date: 08/15/2019 Status: ADM IN PH: FAX: PAGE 1 Signed Report BASIC METABOLIC [id number] 07:08:00* Test Item Value Reference Range Interpretation Comments SODIUM (test code = NA) 143 MMOL/L 136-143 N POTASSIUM (test code = K) 5.1 MMOL/L 3.5-5.1 N CHLORIDE (test code = CL) 108 MMOL/L 98-107 H CARBON DIOXIDE (test code = CO2) 24 mmol/L 24-31 N GLUCOSE (test code = GLU) 92 mg/dL 70-104 N BLOOD UREA NITROGEN (test code = BUN) 7.5 MG/DL 7.0-21.0 N GLOMERULAR FILTRATION RATE (test code = GFR) >=60 max estimate >60 The estimated glomerular filtration rate is computed usingpatient race, age (>18), sex, and serum creatinine. If anyof the needed data elements are missing the Laboratory cannot compute an estimation of the glomerular filtration rate. CREATININE (test code = CREAT) 0.6 mg/dL 0.8-1.5 L CALCIUM (test code = CA) 9.0 mg/dL 8.8-10.2 N CBC W/AUTO [id number] 06:56:00* Test Item Value Reference Range Interpretation Comments WHITE BLOOD CELL (test code = WBC) 5.6 x10 3/uL 4.8-10.8 N RED BLOOD CELL (test code = RBC) 4.40 x10 6/uL 4.20-5.40 N HEMOGLOBIN (test code = HGB) 12.3 g/dL 14.5-20 L HEMATOCRIT (test code = HCT) 38.8 % 37.0-47.0 N MEAN CELL VOLUME (test code = MCV) 88.2 fL 81.0-99.0 N MEAN CELL HGB (test code = MCH) 28.0 pg 27-31 N MEAN CELL HGB CONCENTRATION (test code = MCHC) 31.7 G/DL 33-36.5 L RED CELL DISTRIBUTION WIDTH (test code = RDW) 14.8 % 12.9-16. 9 N PLATELET COUNT (test code = PLT) 182 150-440 N MEAN PLATELET VOLUME (test code = MPV) 11.6 fL 8.9-12.4 N NEUTROPHIL % (test code = NT%) 42.6 % 42.2-75.2 N LYMPHOCYTE % (test code = LY%) 44.3 % 20.5-51.1 N MONOCYTE % (test code = MO%) 9.0 % 1.7-9.3 N EOSINOPHIL % (test code = EO%) 3.2 % 0.0-7.0 N BASOPHIL % (test code = BA%) 0.5 % 0-2.5 N NEUTROPHIL # (test code = NT#) 2.38 x10 3/uL 1.80-7.70 N LYMPHOCYTE # (test code = LY#) 2.47 x10 3/uL 1.00-4.80 N MONOCYTE # (test code = MO#) 0.50 x10 3/uL 0.00-0.80 N EOSINOPHIL # (test code = EO#) 0.18 x10 3/uL 0.00-0.45 N BASOPHIL # (test code = BA#) 0.03 x10 3/uL 0.0-0.20 N LUTEINIZING [id number] 05:09:00* Test Item Value Reference Range Interpretation Comments LUTEINIZING HORMONE (test code = LH) 1.4 mIU/mL () Adult Female: Follicular phase 2.4 - 12.6 Ovulation phase 14.0 - 95.6 Luteal phase 1.0 - 11.4 Postmenopausal 7.7 - 58.5 FOLLICLE STIMULATING [id number] 05:09:00* Test Item Value Reference Range Interpretation Comments FOLLICLE STIMULATING HORMONE (test code = FSH) LUTEINIZING [id number] 05:09:00* Test Item Value Reference Range Interpretation Comments LUTEINIZING HORMONE (test code = LH) 1.4 mIU/mL () Adult Female: Follicular phase 2.4 - 12.6 Ovulation phase 14.0 - 95.6 Luteal phase 1.0 - 11.4 Postmenopausal 7.7 - 58.5 FOLLICLE STIMULATING [id number] 05:09:00* Test Item Value Reference Range Interpretation Comments FOLLICLE STIMULATING HORMONE (test code = FSH) 3.7 mIU/mL () Adult Female: Follicular phase 3.5 - 12.5 Ovulation phase 4.7 - 21.5 Luteal phase 1.7 - 7.7 Postmenopausal 25.8 - 134.8Performed At: [facility] [address] [id number] Kyle L MD Ph:[phone] CORTISOL [id number] 23:55:00* Test Item Value Reference Range Interpretation Comments CORTISOL PM (test code = CORTPM) 3.1 mcg/dL 2.3-11.9 N URINALYSIS [id number] 23:32:00* Test Item Value Reference Range Interpretation Comments UA COLOR (test code = COLU) YELLOW DISCRIPT YELLOW UA APPEARANCE (test code = APPU) SLIGHTLY CLOUDY DISCRIPT CLEAR A UA GLUCOSE DIPSTICK (test code = DGLUU) NEGATIVE mg/dL NEGATIVE UA BILIRUBIN DIPSTICK (test code = BILU) NEGATIVE NEGATIVE UA KETONE DIPSTICK (test code = KETU) NEGATIVE mg/dL NEGATIVE UA SPECIFIC GRAVITY (test code = SGU) 1.015 1.005-1.030 UA BLOOD DIPSTICK (test code = MAIRA) LARGE NEGATIVE A UA PH DIPSTICK (test code = GERARDO) 8.5 5.0-9.0 UA PROTEIN DIPSTICK (test code = PROU) 30 mg/dL NEGATIVE A UA UROBILINOGEN DIPSTICK (test code = URO) 0.2 mg/dL 0.2-1.0 UA NITRITE DIPSTICK (test code = BOBBY) NEGATIVE NEGATIVE UA LEUKOCYTE ESTERASE DIPSTICK (test code = LEUU) TRACE NEGA TIVE A UA [id number] 23:32:00* Test Item Value Reference Range Interpretation Comments UA WBC (test code = WBCU) 0-2 #WBC/HPF 0-2 UA RBC (test code = RBCU) >100 #RBC/HPF 0-2 A UA BACTERIA (test code = BACU) TRACE /HPF NONE-TRACE A UA SQUAMOUS CELLS (test code = SQU) 1+ /LPF NONE-TRACE A URINALYSIS [id number] 23:21:00* Test Item Value Reference Range Interpretation Comments UA COLOR (test code = COLU) YELLOW DISCRIPT YELLOW UA APPEARANCE (test code = APPU) SLIGHTLY CLOUDY DISCRIPT CLEAR A UA GLUCOSE DIPSTICK (test code = DGLUU) NEGATIVE mg/dL NEGATIVE UA BILIRUBIN DIPSTICK (test code = BILU) NEGATIVE NEGATIVE UA KETONE DIPSTICK (test code = KETU) NEGATIVE mg/dL NEGATIVE UA SPECIFIC GRAVITY (test code = SGU) 1.015 1.005-1.030 UA BLOOD DIPSTICK (test code = MAIRA) LARGE NEGATIVE A UA PH DIPSTICK (test code = GERARDO) 8.5 5.0-9.0 UA PROTEIN DIPSTICK (test code = PROU) 30 mg/dL NEGATIVE A UA UROBILINOGEN DIPSTICK (test code = URO) 0.2 mg/dL 0.2-1.0 UA NITRITE DIPSTICK (test code = BOBBY) NEGATIVE NEGATIVE UA LEUKOCYTE ESTERASE DIPSTICK (test code = LEUU) TRACE NEGA TIVE A UA [id number] 23:21:00* Test Item Value Reference Range Interpretation Comments UA WBC (test code = WBCU) #WBC/HPF 0-2 UA RBC (test code = RBCU) #RBC/HPF 0-2 UA BACTERIA (test code = BACU) /HPF NONE-TRACE UA SQUAMOUS CELLS (test code = SQU) /LPF NONE-TRACE URINALYSIS [id number] 23:21:00* Test Item Value Reference Range Interpretation Comments UA COLOR (test code = COLU) YELLOW DISCRIPT YELLOW UA APPEARANCE (test code = APPU) SLIGHTLY CLOUDY DISCRIPT CLEAR A UA GLUCOSE DIPSTICK (test code = DGLUU) NEGATIVE mg/dL NEGATIVE UA BILIRUBIN DIPSTICK (test code = BILU) NEGATIVE NEGATIVE UA KETONE DIPSTICK (test code = KETU) NEGATIVE mg/dL NEGATIVE UA SPECIFIC GRAVITY (test code = SGU) 1.015 1.005-1.030 UA BLOOD DIPSTICK (test code = MAIRA) LARGE NEGATIVE A UA PH DIPSTICK (test code = GERARDO) 8.5 5.0-9.0 UA PROTEIN DIPSTICK (test code = PROU) 30 mg/dL NEGATIVE A UA UROBILINOGEN DIPSTICK (test code = URO) 0.2 mg/dL 0.2-1.0 UA NITRITE DIPSTICK (test code = BOBBY) NEGATIVE NEGATIVE UA LEUKOCYTE ESTERASE DIPSTICK (test code = LEUU) TRACE NEGA TIVE A UA [id number] 23:21:00* Test Item Value Reference Range Interpretation Comments UA WBC (test code = WBCU) #WBC/HPF 0-2 UA RBC (test code = RBCU) #RBC/HPF 0-2 UA BACTERIA (test code = BACU) /HPF NONE-TRACE UA SQUAMOUS CELLS (test code = SQU) /LPF NONE-TRACE CORTISOL [id number] 16:03:00* Test Item Value Reference Range Interpretation Comments CORTISOL AM (test code = CORTAM) 10.9 mcg/dL 6.2-19.4 N - MRI BRAIN W WO [id number] 15:48:00Patient Name: ARSLAN KINNEY Unit No: [id number] EXAMS: CPT CODE: [id number] MRI BRAIN W WO CONT 15310 HISTORY: pituitary cyst severe headaches TECHNIQUE: Multiplanar [...] or possibly a small cystic microadenoma. at 1548 Reported and signed by: Narayan Quach MD Name: ME NIRMAL [facility] Phys: Jose Diaz [address] : 1995 Age: 24 S ex: [place] [address] Loc: [phone] 1 Exam Date: 08/14/2019 Status: ADM IN PH: FAX: PAGE 1 Signed Report (CONTINUED) Patient Name: ARSLAN KINNEY Unit No: [id number] EXAMS: CPT C ODE: [id number] MRI BRAIN W WO CONT 17038 <Continued> CC: No Primary Care Physician; Forrest Andrea MD; Jeff Mccarthy MD Technologist: [facility] Dt/Tm: 08/14/2019 ([id number]) by:[email or web address] Printed Date/Time: 08/14/2019 ([id number]) Name: ARSLAN KINNEY [facility] Phys: SANCHEZJOSE MccarthyJeff N [address] : 1995 Age: 24 Sex: [place] [id number] Loc: [id number] 1 Exam Date: 08/14/2019 Status: ADM IN PH: FAX: PAGE 2 Signed Report HGBA1C - GLYCOSYLATED HGB 2019-08-14 10:04:00* Test Item Value Reference Range Interpretation Comments GLYCOSYLATED HEMOGLOBIN (HA1C) (test code = GLYHGB) 5.1 % 0. 0-5.6 N INTERPRETATIVE DATA:HGBA1C levels above the established reference range are anindication of hyperglycemia during the preceeding 2 - 3months orlonger. HBA1C levels may reach 20% or higher in poorlycontrolled diabetes. Therapeutic action is suggested atlevels above 8%.Diabetic patients with HBA1C levels below 7% meet the goalof the [place] [employer]. Normal: <5.7Pre-Diabetes: 5.7 6.4Diabetic: >6.5Therapeutic goal for glycemic control: <7.0 [id number] 10:03:00* Test Item Value Reference Range Interpretation Comments PREALBUMIN (test code = PREALB) 17.1 MG/ML 15-42 N VITAMIN [id number] 09:31:00* Test Item Value Reference Range Interpretation Comments VITAMIN B12 (test code = VITB12) 656 PG/ML 211-946 N URIC [id number] 09:23:00* Test Item Value Reference Range Interpretation Comments URIC ACID (test code = URIC) 3.7 MG/DL 2.4-7.0 N [id number] 09:23:00* Test Item Value Reference Range Interpretation Comments MAGNESIUM (test code = MAG) 1.9 mg/dL 1.4-2.6 N LIPID PROFILE (CORONARY RISK)2019-08-14 09:23:00* Test Item Value Reference Range Interpretation Comments TRIGLYCERIDES (test code = TRIG) 53 mg/dL 35-160 N CHOLESTEROL (test code = CHOL) 172 mg/dL 0-200 N HDL CHOLESTEROL (test code = HDL) 54 mg/dL 45-65 N LIPOPROTEIN LDL (test code = LDLC) 108 MG/DL 0-99 H INTERPRETATIVE DATA:LDL Cholesterol: Reference RangesOptimal: <100 mg/dLNear Optimal: 100 -129 mg/dLBorderline High: 130 - 159 mg/dLHigh: 160 - 189 mg/dLVery High: = or > 190 mg/dL CORONARY RISK FACTOR (test code = RISK) 3.19 CHOL/HDL RISK MALE: 1/2 AVG 3.43 FEMALE: 1/2 AVG 3.27 AVG 4.97 AVG 4.44 2X AVG 9.55 2X AVG 7.05 3X AVG 23.39 3X AVG 11.04~~~~~~~~~~~~~~~~~~~~~~~~~~~~~~~~~~~~~~~~~~~~~~~~~~~~~~~~~~~~National Cholesterol Education (NCEP) Guidelines:~~~~~~~~~~~~~~~~~~~~~~~~~~~~~~~~~~~~~~~~~~~~~~~~~~~~~~~~~~~~ HDL Cholesterol<40mg/dL: HDL Cholesterol (Major risk factor for CHD)>60mg/dL: HDL Cholesterol (Negative risk factor for CHD)40-59mg/dL: Borderline Risk LDL Cholesterol<100mg/dL: Desirable LDL-C pnsfbwviwfuxb738-306df/dL: Borderline High Risk LDL-C cwnnikgsdwolq888-870aq/dL: High risk LDL-C concentration HDL-LDL Cholesterol is affected by a number of factors suchas smoking, age and sex.~~~~~~~~~~~~~~~~~~~~~~~~~~~~~~~~~~~~~~~~~~~~~~~~~~~~~~~~~~~~ BASIC METABOLIC [id number] 09:22:00* Test Item Value Reference Range Interpretation Comments SODIUM (test code = NA) 140 MMOL/L 136-143 N POTASSIUM (test code = K) 4.2 MMOL/L 3.5-5.1 N CHLORIDE (test code = CL) 102 MMOL/L 98-107 N CARBON DIOXIDE (test code = CO2) 26 mmol/L 24-31 N GLUCOSE (test code = GLU) 92 mg/dL 70-104 N BLOOD UREA NITROGEN (test code = BUN) 8.1 MG/DL 7.0-21.0 N GLOMERULAR FILTRATION RATE (test code = GFR) >=60 max estimate >60 The estimated glomerular filtration rate is computed usingpatient race, age (>18), sex, and serum creatinine. If anyof the needed data elements are missing the Laboratory cannot compute an estimation of the glomerular filtration rate. CREATININE (test code = CREAT) 0.6 mg/dL 0.8-1.5 L CALCIUM (test code = CA) 9.2 mg/dL 8.8-10.2 N CREATINE KINASE (CK)2019-08-14 09:22:00* Test Item Value Reference Range Interpretation Comments CREATINE KINASE (CK) (test code = CK) 51 U/L 24-204 N CBC W/O [id number] 08:18:00* Test Item Value Reference Range Interpretation Comments WHITE BLOOD CELL (test code = WBC) 5.3 x10 3/uL 4.8-10.8 N RED BLOOD CELL (test code = RBC) 4.73 x10 6/uL 4.20-5.40 N HEMOGLOBIN (test code = HGB) 13.2 g/dL 14.5-20 L HEMATOCRIT (test code = HCT) 41.2 % 37.0-47.0 N MEAN CELL VOLUME (test code = MCV) 87.1 fL 81.0-99.0 N MEAN CELL HGB (test code = MCH) 27.9 pg 27-31 N MEAN CELL HGB CONCENTRATION (test code = MCHC) 32.0 G/DL 33-36.5 L RED CELL DISTRIBUTION WIDTH (test code = RDW-SD) 47 % 35-47 N PLATELET COUNT (test code = PLT) 192 150-440 N T3 [id number] 02:29:00* Test Item Value Reference Range Interpretation Comments T3 FREE (test code = T3F) 3.6 PG/ML 2.0-4.4 N T4 [id number] 02:29:00* Test Item Value Reference Range Interpretation Comments T4 FREE (test code = T4F) 1.3 ng/dL 0.93-1.70 N THYROID STIMULATING [id number] 02:29:00* Test Item Value Reference Range Interpretation Comments THYROID STIMULATING HORMONE (test code = TSH) 1.24 mIU/L 0.27-4.2 0 N [id number] 02:29:00* Test Item Value Reference Range Interpretation Comments CORTISOL (test code = CORTR) 3.1 mcg/dL 6.0-19.1 L THYROID STIMULATING [id number] 20:19:00* Test Item Value Reference Range Interpretation Comments THYROID STIMULATING HORMONE (test code = TSH) 0.92 uIU/mL 0.36-3.7 4 N TSH REFERENCE RANGES: EUTHYROID: 0.4 - 4.3 HYPO : >7.6 HYPER : <0.1 URINALYSIS [id number] 19:53:00* Test Item Value Reference Range Interpretation Comments UA COLOR (test code = COLU) LIGHT YELLOW YELLOW UA APPEARANCE (test code = APPU) CLEAR CLEAR UA GLUCOSE DIPSTICK (test code = DGLUU) norm mg/dL NEGATIVE UA BILIRUBIN DIPSTICK (test code = BILU) NEGATIVE mg/dL NEGATIVE UA KETONE DIPSTICK (test code = KETU) neg mg/dL NEGATIVE UA SPECIFIC GRAVITY (test code = SGU) 1.010 1.001-1.035 UA BLOOD DIPSTICK (test code = MAIRA) 250 (4+) Elías/uL NEGATIVE A UA PH DIPSTICK (test code = GERARDO) 8.0 5.0-8.0 UA PROTEIN DIPSTICK (test code = PROU) neg mg/dL Neg-15 UA UROBILINIOGEN DIPSTICK (test code = URO) norm mg/dL 0.0-0.2 UA NITRITE DIPSTICK (test code = BOBBY) NEGATIVE NEGATIVE UA LEUKOCYTE ESTERASE DIPSTICK (test code = LEUU) 25 Warren/uL (Tra ce) uL NEGATIVE A UA WBC (test code = WBCU) 0-5 per HPF 0-5 UA RBC (test code = RBCU) 3-5 per HPF 0-5 UA EPITHELIAL CELLS (test code = EPIU) Few (2-5/hpf) per HPF Few UA BACTERIA (test code = BACU) FEW per HPF NONE Urine Source? Clean CatchUR HCG [id number] 19:53:00* Test Item Value Reference Range Interpretation Comments UR HCG QUAL (test code = HCGQLU) NEGATIVE This HCGQL test is NOT applicable for MALE patients.Check with nurse about probable order error.If Tumor Marker Test needed, nurse should order test "HCGTU"(Test #550.60165) Urine Source? Clean CatchDRUGS OF ABUSE SCREEN [id number] 19:53:00* Test Item Value Reference Range Interpretation Comments URN COCAINE (test code = COCAURN) NEGATIVE NEGATIVE URN CANNABINOIDS (test code = CANNABURN) NEGATIVE NEGATIVE URN AMPHETAMINE (test code = AMPHETURN) NEGATIVE NEGATIVE URN BARBITURATE (test code = BARBITURN) NEGATIVE NEGATIVE URN BENZODIAZEPINE (test code = BENZOURN) NEGATIVE NEGATIVE URN OPIATES (test code = OPIATURN) NEGATIVE NEGATIVE URN PHENCYCLIDINE (PCP) (test code = PHENCURN) NEGATIVE NEGATIV E BASIC METABOLIC [id number] 19:53:00* Test Item Value Reference Range Interpretation Comments SODIUM (test code = NA) 143 mmol/L 135-148 N POTASSIUM (test code = K) 3.5 mmol/L 3.5-5.1 N CHLORIDE (test code = CL) 105 mmol/L 101-109 N CARBON DIOXIDE (test code = CO2) 27.8 mmol/L 21-32 N ANION GAP (test code = GAP) 14 mmol/L 10-20 N GLUCOSE (test code = GLU) 83 mg/dL 74-106 N BLOOD UREA NITROGEN (test code = BUN) 9 mg/dL 3-21 N GLOMERULAR FILTRATION RATE (test code = GFR) > 60 mL/min >=60 Estimated GFR by using Modified MDRD formula.Chronic kidney disease is defined as either kidney damageor GFR <60 mL/min/1.73 m2 for >3 months. CREATININE (test code = CREAT) 0.84 mg/dL 0.55-1.3 N BUN/CREATININE RATIO (test code = BUN/CREA) 10.7 10-20 N CALCIUM (test code = CA) 9.0 mg/dL 8.4-10.2 N HEPATIC FUNCTION [id number] 19:53:00* Test Item Value Reference Range Interpretation Comments TOTAL PROTEIN (test code = PROT) 7.5 g/dL 6.5-8.4 N ALBUMIN (test code = ALB) 4.4 g/dL 3.4-4.8 N GLOBULIN (test code = GLOB) 3.1 G/DL 1-10 N ALBUMIN/GLOBULIN RATIO (test code = A/G) 1.4 RATIO 0.75-1.50 N BILIRUBIN TOTAL (test code = BILT) 0.30 mg/dL 0.0-1.0 N BILIRUBIN DIRECT (test code = BILD) 0.10 mg/dL 0.0-0.30 N SGOT/AST (test code = AST) 16 U/L 6-32 N SGPT/ALT (test code = ALT) 14 U/L 12-78 N N ote: Change in REFERENCE RANGE due to new reagent method. ALKALINE PHOSPHATASE TOTAL (test code = ALKP) 100 U/L 38-126 N - CT HEAD/BRAIN W/O [id number] 19:52:00 Name: ARSLAN KINNEY [facility] : 1995 Age/S: 24 / F [address] [facility] Unit #: [id number] Loc: [place] [address] Phys: Chase Coulter MD Acct: [id number] Dis Date: Status: REG ER PHONE #: [phone] Exam Date: 08/13/2019 194 FAX #: [phone] Reason: headache x 2 weeks, post , h/o pituitary EXAMS: CPT CODE: [id number] CT HEAD/BRAIN W/O CONT 10922 REASON FOR EXAM: headache x 2 weeks, post , h/o pituitary "cyst" EXAM ORDER DATE: 08/13/2019 7:17 PM Ordering MDar: Chase Coulter MD PROCEDURE: - CT HEAD/BRAIN [...] calvarium is intact. IMPRESSION: Unremarkable brain. at 1951 Reported and signed by: James Kennedy M.D. CC: Chase Coulter MD; Becca Hernandez MD Technologist:FRANCA DOUGLASS RT(R),CT CTDI: DLP: Trnscb Date/Time: 08/13/2019 (1949) [email or web address] Orig Print D/T: S: 08/13/2019 (1954) PAGE 1 Signed Report BASIC METABOLIC [id number] 19:48:00* Test Item Value Reference Range Interpretation Comments SODIUM (test code = NA) 143 mmol/L 135-148 N POTASSIUM (test code = K) 3.5 mmol/L 3.5-5.1 N CHLORIDE (test code = CL) 105 mmol/L 101-109 N CARBON DIOXIDE (test code = CO2) 27.8 mmol/L 21-32 N ANION GAP (test code = GAP) 14 mmol/L 10-20 N GLUCOSE (test code = GLU) 83 mg/dL 74-106 N BLOOD UREA NITROGEN (test code = BUN) 9 mg/dL 3-21 N GLOMERULAR FILTRATION RATE (test code = GFR) > 60 mL/min >=60 Estimated GFR by using Modified MDRD formula.Chronic kidney disease is defined as either kidney damageor GFR <60 mL/min/1.73 m2 for >3 months. CREATININE (test code = CREAT) 0.84 mg/dL 0.55-1.3 N BUN/CREATININE RATIO (test code = BUN/CREA) 10.7 10-20 N CALCIUM (test code = CA) 9.0 mg/dL 8.4-10.2 N HEPATIC FUNCTION [id number] 19:48:00* Test Item Value Reference Range Interpretation Comments TOTAL PROTEIN (test code = PROT) gram/dL 6.4-8.2 ALBUMIN (test code = ALB) g/dL 3.4-5.0 GLOBULIN (test code = GLOB) g/dL 2.7-4.2 ALBUMIN/GLOBULIN RATIO (test code = A/G) 0.75-1.50 BILIRUBIN TOTAL (test code = BILT) mg/dL 0.2-1.2 BILIRUBIN DIRECT (test code = BILD) mg/dL 0.0-0.20 SGOT/AST (test code = AST) IUnit/L 15-37 SGPT/ALT (test code = ALT) U/L 10-69 ALKALINE PHOSPHATASE TOTAL (test code = ALKP) IUnit/L 45-117 URINALYSIS [id number] 19:47:00* Test Item Value Reference Range Interpretation Comments UA COLOR (test code = COLU) LIGHT YELLOW YELLOW UA APPEARANCE (test code = APPU) CLEAR CLEAR UA GLUCOSE DIPSTICK (test code = DGLUU) norm mg/dL NEGATIVE UA BILIRUBIN DIPSTICK (test code = BILU) NEGATIVE mg/dL NEGATIVE UA KETONE DIPSTICK (test code = KETU) neg mg/dL NEGATIVE UA SPECIFIC GRAVITY (test code = SGU) 1.010 1.001-1.035 UA BLOOD DIPSTICK (test code = MAIRA) 250 (4+) Elías/uL NEGATIVE A UA PH DIPSTICK (test code = GERARDO) 8.0 5.0-8.0 UA PROTEIN DIPSTICK (test code = PROU) neg mg/dL Neg-15 UA UROBILINIOGEN DIPSTICK (test code = URO) norm mg/dL 0.0-0.2 UA NITRITE DIPSTICK (test code = BOBBY) NEGATIVE NEGATIVE UA LEUKOCYTE ESTERASE DIPSTICK (test code = LEUU) 25 Warren/uL (Tra ce) uL NEGATIVE A UA WBC (test code = WBCU) per HPF 0-5 UA RBC (test code = RBCU) per HPF 0-5 UA EPITHELIAL CELLS (test code = EPIU) per HPF Few UA BACTERIA (test code = BACU) per HPF NONE Urine Source? Clean CatchUR HCG [id number] 19:47:00* Test Item Value Reference Range Interpretation Comments UR HCG QUAL (test code = HCGQLU) NEGATIVE This HCGQL test is NOT applicable for MALE patients.Check with nurse about probable order error.If Tumor Marker Test needed, nurse should order test "HCGTU"(Test #550.55860) Urine Source? Clean CatchURINALYSIS [id number] 19:46:00* Test Item Value Reference Range Interpretation Comments UA COLOR (test code = COLU) LIGHT YELLOW YELLOW UA APPEARANCE (test code = APPU) CLEAR CLEAR UA GLUCOSE DIPSTICK (test code = DGLUU) norm mg/dL NEGATIVE UA BILIRUBIN DIPSTICK (test code = BILU) NEGATIVE mg/dL NEGATIVE UA KETONE DIPSTICK (test code = KETU) neg mg/dL NEGATIVE UA SPECIFIC GRAVITY (test code = SGU) 1.010 1.001-1.035 UA BLOOD DIPSTICK (test code = MAIRA) 250 (4+) Elías/uL NEGATIVE A UA PH DIPSTICK (test code = GERARDO) 8.0 5.0-8.0 UA PROTEIN DIPSTICK (test code = PROU) neg mg/dL Neg-15 UA UROBILINIOGEN DIPSTICK (test code = URO) norm mg/dL 0.0-0.2 UA NITRITE DIPSTICK (test code = BOBBY) NEGATIVE NEGATIVE UA LEUKOCYTE ESTERASE DIPSTICK (test code = LEUU) 25 Warren/uL (Tra ce) uL NEGATIVE A UA WBC (test code = WBCU) per HPF 0-5 UA RBC (test code = RBCU) per HPF 0-5 UA EPITHELIAL CELLS (test code = EPIU) per HPF Few UA BACTERIA (test code = BACU) per HPF NONE Urine Source? Clean CatchUR HCG [id number] 19:46:00* Test Item Value Reference Range Interpretation Comments UR HCG QUAL (test code = HCGQLU) Urine Source? Clean CatchCBC W/O [id number] 19:41:00* Test Item Value Reference Range Interpretation Comments WHITE BLOOD CELL (test code = WBC) 6.6 K/mm3 4.5-12.5 N RED BLOOD CELL (test code = RBC) 5.00 mill/mm3 3.7-5.2 N HEMOGLOBIN (test code = HGB) 13.8 gram/dL 11.5-15.5 N HEMATOCRIT (test code = HCT) 43.3 % 36.0-46.0 N MEAN CELL VOLUME (test code = MCV) 86.6 fL 80-98 N MEAN CELL HGB (test code = MCH) 27.6 picogram 27.0-33.0 N MEAN CELL HGB CONCETRATION (test code = MCHC) 31.9 gram/dL 33.0-36. 0 L RED CELL DISTRIBUTION WIDTH (test code = RDW) 14.3 % 11.6-16. 2 N RED CELL DISTRIBUTION WIDTH SD (test code = RDW-SD) 46.3 fL 37 .0-51.0 N PLATELET COUNT (test code = PLT) 238 K/mm3 150-450 N MEAN PLATELET VOLUME (test code = MPV) 11.3 fL 6.7-11.0 H - CT ABD PELVIS [id number] 21:34:00 Name: ARSLAN KINNEY [facility] : 1995 Age/S: 24 / F [address] [place] [address] Blvd Unit #: [id number] Loc: [place] [address] Phys: Adela Hylton 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 Acct: [id number] Dis Date: Status: REG ER PHONE #: [phone] Exam Date: 07/28/2019 211 FAX #: [phone] Reason: pelvic pain, recent vaginal delivery, flank jerrell EXAMS: CPT CODE: [id number] CT ABD PELVIS W/CONT 48098 CT ABDOMEN AND PELVIS WITH CONTRAST INDICATION: [...] 1 Signed Report (CONTINUED) Name: ARSLAN KINNEY [facility] : 1995 Age/S: 24 / F [address] [place] [address] Unit #: [id number] Loc: [place] [address] Phys: Adela Hylton NP Acct: [id number] Dis Date: Status: REG ER PHONE #: [phone] Exam Date: 07/28/20192110 FAX #: [phone] Reason: pelvic pain, recent vaginal delivery, flank jerrell EXAMS: CPT CODE: [id number] CT ABD PELVIS W/CONT 99626 <Continued> There are benign vascular calcifications in [...] uterus with no acute reproductive process. at 2134 Reported and signed by: Franki Benson D.O. CC: Becca Mary MD; Adela Hylton NP Technologist:RT Radha(R)(CT) CTDI: DLP: Trnscb Date/Time: 07/28/2019 (2133) [id number] Orig Print D/T: S: 07/28/2019 (2137) PAGE 2 Signed Report COMPREHENSIVE METABOLIC [id number] 20:31:00* Test Item Value Reference Range Interpretation Comments SODIUM (test code = NA) 141 mEq/L 134-147 N POTASSIUM (test code = K) 3.6 mEq/L 3.4-5.0 N CHLORIDE (test code = CL) 106 mEq/L 100-108 N CARBON DIOXIDE (test code = CO2) 30 mEq/L 21-33 N ANION GAP (test code = GAP) 9 0-20 N GLUCOSE (test code = GLU) 94 mg/dL 70-110 N BLOOD UREA NITROGEN (test code = BUN) 13 mg/dL 7-18 N GLOMERULAR FILTRATION RATE (test code = GFR) 89.7 110-120 L Units of measure = ml/min/1.73 m2 CREATININE (test code = CREAT) 0.8 mg/dL 0.6-1.3 N TOTAL PROTEIN (test code = PROT) 7.8 g/dL 6.4-8.2 N ALBUMIN (test code = ALB) 4.20 g/dL 3.4-5.0 N CALCIUM (test code = CA) 9.3 mg/dL 8.0-10.5 N BILIRUBIN TOTAL (test code = BILT) 0.20 mg/dL 0.0-1.0 N SGOT/AST (test code = AST) 15 IUnit/L 15-37 N SGPT/ALT (test code = ALT) 22 IUnit/L 15-65 N ALKALINE PHOSPHATASE TOTAL (test code = ALKP) 129 IUnit/L 20-125 H COMPREHENSIVE METABOLIC [id number] 20:25:00* Test Item Value Reference Range Interpretation Comments SODIUM (test code = NA) 141 mEq/L 134-147 N POTASSIUM (test code = K) 3.6 mEq/L 3.4-5.0 N CHLORIDE (test code = CL) 106 mEq/L 100-108 N CARBON DIOXIDE (test code = CO2) 30 mEq/L 21-33 N ANION GAP (test code = GAP) 9 0-20 N GLUCOSE (test code = GLU) 94 mg/dL 70-110 N BLOOD UREA NITROGEN (test code = BUN) 13 mg/dL 7-18 N GLOMERULAR FILTRATION RATE (test code = GFR) 110-120 CREATININE (test code = CREAT) mg/dL 0.6-1.3 TOTAL PROTEIN (test code = PROT) g/dL 6.4-8.2 ALBUMIN (test code = ALB) g/dL 3.4-5.0 CALCIUM (test code = CA) 9.3 mg/dL 8.0-10.5 N BILIRUBIN TOTAL (test code = BILT) mg/dL 0.0-1.0 SGOT/AST (test code = AST) IUnit/L 15-37 SGPT/ALT (test code = ALT) IUnit/L 15-65 ALKALINE PHOSPHATASE TOTAL (test code = ALKP) IUnit/L 20-125 UA RFLX MICR CULT IF [id number] 20:20:00* Test Item Value Reference Range Interpretation Comments UA COLOR (test code = COLU) STRAW YEL/STRAW UA APPEARANCE (test code = APPU) CLEAR CLEAR UA GLUCOSE DIPSTICK (test code = DGLUU) NEGATIVE NEGATIVE UA BILIRUBIN DIPSTICK (test code = BILU) NEGATIVE NEGATIVE UA KETONE DIPSTICK (test code = KETU) NEGATIVE NEGATIVE UA SPECIFIC GRAVITY (test code = SGU) 1.005 1.005-1.030 N UA BLOOD DIPSTICK (test code = MAIRA) 2+ NEGATIVE A UA PH DIPSTICK (test code = GERARDO) 7.0 5.0-7.0 N UA PROTEIN DIPSTICK (test code = PROU) NEGATIVE NEGATIVE UA UROBILINIOGEN DIPSTICK (test code = URO) 0.2 mg/dL 0.2-1.0 UA NITRITE DIPSTICK (test code = BOBBY) NEGATIVE NEGATIVE UA LEUKOCYTE ESTERASE DIPSTICK (test code = LEUU) 1+ NEGA TIVE A UA WBC (test code = WBCU) 4-9 WBC/HPF 0-3 A UA RBC (test code = RBCU) 0-3 RBC/HPF 0-3 UA WBC NO REFLEX (test code = WBCUCL) 4-9 WBC/HPF 0-3 A UA BACTERIA (test code = BACU) TRACE /HPF NONE SEEN UA SQUAMOUS CELLS (test code = SQU) 0-5 /HPF NONE SEEN Indication for culture: Suprapubic PainSpecimen Description: CLEAN CATCHUR HCG [id number] 20:16:00* Test Item Value Reference Range Interpretation Comments UR HCG QUAL (test code = HCGQLU) NEGATIVE NEGATIVE CBC W/AUTO [id number] 20:10:00* Test Item Value Reference Range Interpretation Comments WHITE BLOOD CELL (test code = WBC) 6.40 x10 3/uL 4.5-11.0 N RED BLOOD CELL (test code = RBC) 4.84 x10 6/uL 3.54-5.02 N HEMOGLOBIN (test code = HGB) 13.2 g/dL 11.0-15.0 N HEMATOCRIT (test code = HCT) 42.7 % 33.0-45.0 N MEAN CELL VOLUME (test code = MCV) 88.2 fL 81.0-99.0 N MEAN CELL HGB (test code = MCH) 27.3 pg 27.0-33.0 N MEAN CELL HGB CONCETRATION (test code = MCHC) 30.9 g/dL 33.0-37. 0 L RED CELL DISTRIBUTION WIDTH CV (test code = RDW) 16.8 % 11.5- 14.5 H RED CELL DISTRIBUTION WIDTH SD (test code = RDW-SD) 54.3 fL 37 .0-54.0 H PLATELET COUNT (test code = PLT) 207 x10 3/uL 150-400 N MEAN PLATELET VOLUME (test code = MPV) 12.5 fL 7.0-9.0 H NEUTROPHIL % (test code = NT%) 57.4 % 56.0-77.0 N IMMATURE GRANULOCYTE % (test code = IG%) 0.2 % 0.0-2.0 N LYMPHOCYTE % (test code = LY%) 30.9 % 14.0-32.0 N MONOCYTE % (test code = MO%) 7.8 % 4.8-9.0 N EOSINOPHIL % (test code = EO%) 3.1 % 0.3-3.7 N BASOPHIL % (test code = BA%) 0.6 % 0.0-2.0 N NUCLEATED RBC % (test code = NRBC%) 0.0 % 0-0 N NEUTROPHIL # (test code = NT#) 3.67 x10 3/uL 2.0-7.6 N IMMATURE GRANULOCYTE # (test code = IG#) 0.01 x10 3/uL 0.00-0.03 N LYMPHOCYTE # (test code = LY#) 1.98 x10 3/uL 1.0-3.8 N MONOCYTE # (test code = MO#) 0.50 x10 3/uL 0.1-0.8 N EOSINOPHIL # (test code = EO#) 0.20 x10 3/uL 0.0-0.2 N BASOPHIL # (test code = BA#) 0.04 x10 3/uL 0.0-0.2 N NUCLEATED RBC # (test code = NRBC#) 0.00 x10 3/uL 0.0-0.1 N MANUAL DIFF REQUIRED (test code = MDIFF) NO STREPTOCOCCUS PCR [id number] 17:31:00* Test Item Value Reference Range Interpretation Comments STREPTOCOCCUS DYSGALACTIAE (test code = STREPGC) NEGATIVE FOR G/C N EGATIVE STREPA MOLECULAR (test code = STREPAMOL) NEGATIVE FOR GRP A NEGATIV E - XR CHEST 2 [id number] 23:38:00 Name: ARSLAN KINNEY [facility] : 1995 Age/S:24 /F [address] [facility] Unit#:[id number] Loc: [place] [address] Phys: Candace Dye MD Dis Date: PHONE #: [phone] Status: PRE ER FAX #: [phone] Exam Date: 07/15/2019 Reason: COUGH PRODUCTIVE EXAMS: CPT CODE: [id number] XR CHEST 2 V 96254 AFTER HOURS SERVICE ON: 07/15/2019 11:38 PM Chest, PA and Lateral Location Code M12 History: COUGH PRODUCTIVE Findings: There are no infiltrates. There are no pleural effusions. There is no pneumothorax. Cardiac silhouette and mediastinum appear within normal limits. Impression: No active pulmonary findings. at 2338 Reported and signed by: Ez Quesada M.D. CC: Becca Hernandez MD Technologist: FRANCA DOUGLASS RT(R),CT Trnscrpt Data: 07/15/2019 (2338) [id number] Orig Print D/T: S: 07/15/2019 (9051) PAGE 1 Signed Report CBC W/AUTO [id number] 08:33:00* Test Item Value Reference Range Interpretation Comments WHITE BLOOD CELL (test code = WBC) 10.27 x10 3/uL 4.5-11.0 N RED BLOOD CELL (test code = RBC) 3.54 x10 6/uL 3.54-5.02 N HEMOGLOBIN (test code = HGB) 9.6 g/dL 11.0-15.0 L HEMATOCRIT (test code = HCT) 30.9 % 33.0-45.0 L MEAN CELL VOLUME (test code = MCV) 87.3 fL 81.0-99.0 N MEAN CELL HGB (test code = MCH) 27.1 pg 27.0-33.0 N MEAN CELL HGB CONCETRATION (test code = MCHC) 31.1 g/dL 33.0-37. 0 L RED CELL DISTRIBUTION WIDTH CV (test code = RDW) 20.6 % 11.5- 14.5 H RED CELL DISTRIBUTION WIDTH SD (test code = RDW-SD) 65.1 fL 37 .0-54.0 H PLATELET COUNT (test code = PLT) 102 x10 3/uL 150-400 L IMMATURE PLATELET FRACTION (test code = IPF) 11.8 % 0.9-11.2 H MEAN PLATELET VOLUME (test code = MPV) 13.8 fL 7.0-9.0 H NEUTROPHIL % (test code = NT%) 70.6 % 56.0-77.0 N IMMATURE GRANULOCYTE % (test code = IG%) 1.2 % 0.0-2.0 N LYMPHOCYTE % (test code = LY%) 17.1 % 14.0-32.0 N MONOCYTE % (test code = MO%) 9.3 % 4.8-9.0 H EOSINOPHIL % (test code = EO%) 1.3 % 0.3-3.7 N BASOPHIL % (test code = BA%) 0.5 % 0.0-2.0 N NUCLEATED RBC % (test code = NRBC%) 0.0 % 0-0 N NEUTROPHIL # (test code = NT#) 7.25 x10 3/uL 2.0-7.6 N IMMATURE GRANULOCYTE # (test code = IG#) 0.12 x10 3/uL 0.00-0.03 H LYMPHOCYTE # (test code = LY#) 1.76 x10 3/uL 1.0-3.8 N MONOCYTE # (test code = MO#) 0.96 x10 3/uL 0.1-0.8 H EOSINOPHIL # (test code = EO#) 0.13 x10 3/uL 0.0-0.2 N BASOPHIL # (test code = BA#) 0.05 x10 3/uL 0.0-0.2 N NUCLEATED RBC # (test code = NRBC#) 0.00 x10 3/uL 0.0-0.1 N MANUAL DIFF REQUIRED (test code = MDIFF) NO PLT [id number] 08:33:00* Test Item Value Reference Range Interpretation Comments PLATELET ESTIMATE (test code = PLTEST) 120-150 THOUSAND ADEQUATE PLATELET MORPHOLOGY (test code = PLTMORPH) LARGE PLATELETS LARGE PLTS AND GIANT PLTS SEEN CBC W/AUTO [id number] 07:57:00* Test Item Value Reference Range Interpretation Comments WHITE BLOOD CELL (test code = WBC) 10.27 x10 3/uL 4.5-11.0 N RED BLOOD CELL (test code = RBC) 3.54 x10 6/uL 3.54-5.02 N HEMOGLOBIN (test code = HGB) 9.6 g/dL 11.0-15.0 L HEMATOCRIT (test code = HCT) 30.9 % 33.0-45.0 L MEAN CELL VOLUME (test code = MCV) 87.3 fL 81.0-99.0 N MEAN CELL HGB (test code = MCH) 27.1 pg 27.0-33.0 N MEAN CELL HGB CONCETRATION (test code = MCHC) 31.1 g/dL 33.0-37. 0 L RED CELL DISTRIBUTION WIDTH CV (test code = RDW) 20.6 % 11.5- 14.5 H RED CELL DISTRIBUTION WIDTH SD (test code = RDW-SD) 65.1 fL 37 .0-54.0 H PLATELET COUNT (test code = PLT) 102 x10 3/uL 150-400 L IMMATURE PLATELET FRACTION (test code = IPF) 11.8 % 0.9-11.2 H MEAN PLATELET VOLUME (test code = MPV) 13.8 fL 7.0-9.0 H NEUTROPHIL % (test code = NT%) 70.6 % 56.0-77.0 N IMMATURE GRANULOCYTE % (test code = IG%) 1.2 % 0.0-2.0 N LYMPHOCYTE % (test code = LY%) 17.1 % 14.0-32.0 N MONOCYTE % (test code = MO%) 9.3 % 4.8-9.0 H EOSINOPHIL % (test code = EO%) 1.3 % 0.3-3.7 N BASOPHIL % (test code = BA%) 0.5 % 0.0-2.0 N NUCLEATED RBC % (test code = NRBC%) 0.0 % 0-0 N NEUTROPHIL # (test code = NT#) 7.25 x10 3/uL 2.0-7.6 N IMMATURE GRANULOCYTE # (test code = IG#) 0.12 x10 3/uL 0.00-0.03 H LYMPHOCYTE # (test code = LY#) 1.76 x10 3/uL 1.0-3.8 N MONOCYTE # (test code = MO#) 0.96 x10 3/uL 0.1-0.8 H EOSINOPHIL # (test code = EO#) 0.13 x10 3/uL 0.0-0.2 N BASOPHIL # (test code = BA#) 0.05 x10 3/uL 0.0-0.2 N NUCLEATED RBC # (test code = NRBC#) 0.00 x10 3/uL 0.0-0.1 N MANUAL DIFF REQUIRED (test code = MDIFF) NO PLT [id number] 07:57:00* Test Item Value Reference Range Interpretation Comments PLATELET ESTIMATE (test code = PLTEST) THOUSAND ADEQUATE CBC W/AUTO [id number] 07:57:00* Test Item Value Reference Range Interpretation Comments WHITE BLOOD CELL (test code = WBC) 10.27 x10 3/uL 4.5-11.0 N RED BLOOD CELL (test code = RBC) 3.54 x10 6/uL 3.54-5.02 N HEMOGLOBIN (test code = HGB) 9.6 g/dL 11.0-15.0 L HEMATOCRIT (test code = HCT) 30.9 % 33.0-45.0 L MEAN CELL VOLUME (test code = MCV) 87.3 fL 81.0-99.0 N MEAN CELL HGB (test code = MCH) 27.1 pg 27.0-33.0 N MEAN CELL HGB CONCETRATION (test code = MCHC) 31.1 g/dL 33.0-37. 0 L RED CELL DISTRIBUTION WIDTH CV (test code = RDW) 20.6 % 11.5- 14.5 H RED CELL DISTRIBUTION WIDTH SD (test code = RDW-SD) 65.1 fL 37 .0-54.0 H PLATELET COUNT (test code = PLT) 102 x10 3/uL 150-400 L IMMATURE PLATELET FRACTION (test code = IPF) 11.8 % 0.9-11.2 H MEAN PLATELET VOLUME (test code = MPV) 13.8 fL 7.0-9.0 H NEUTROPHIL % (test code = NT%) 70.6 % 56.0-77.0 N IMMATURE GRANULOCYTE % (test code = IG%) 1.2 % 0.0-2.0 N LYMPHOCYTE % (test code = LY%) 17.1 % 14.0-32.0 N MONOCYTE % (test code = MO%) 9.3 % 4.8-9.0 H EOSINOPHIL % (test code = EO%) 1.3 % 0.3-3.7 N BASOPHIL % (test code = BA%) 0.5 % 0.0-2.0 N NUCLEATED RBC % (test code = NRBC%) 0.0 % 0-0 N NEUTROPHIL # (test code = NT#) 7.25 x10 3/uL 2.0-7.6 N IMMATURE GRANULOCYTE # (test code = IG#) 0.12 x10 3/uL 0.00-0.03 H LYMPHOCYTE # (test code = LY#) 1.76 x10 3/uL 1.0-3.8 N MONOCYTE # (test code = MO#) 0.96 x10 3/uL 0.1-0.8 H EOSINOPHIL # (test code = EO#) 0.13 x10 3/uL 0.0-0.2 N BASOPHIL # (test code = BA#) 0.05 x10 3/uL 0.0-0.2 N NUCLEATED RBC # (test code = NRBC#) 0.00 x10 3/uL 0.0-0.1 N MANUAL DIFF REQUIRED (test code = MDIFF) NO PLT [id number] 07:57:00* Test Item Value Reference Range Interpretation Comments PLATELET ESTIMATE (test code = PLTEST) THOUSAND ADEQUATE RAPID PLASMA [id number] 11:30:00* Test Item Value Reference Range Interpretation Comments RAPID PLASMA REAGIN (test code = RPR) NONREACTIVE NONREACTIVE AG HEPATITIS B [id number] 11:30:00* Test Item Value Reference Range Interpretation Comments AG HEPATITIS B SURFACE (test code = HBSAG) NON REACTIVE INDEX NonRe active AB HIV 1 11:30:00* Test Item Value Reference Range Interpretation Comments AB HIV 1 2 (test code = [id number]) NONREACTIVE INDEX NONREACTIVE RAPID PLASMA [id number] 20:25:00* Test Item Value Reference Range Interpretation Comments RAPID PLASMA REAGIN (test code = RPR) NONREACTIVE AG HEPATITIS B [id number] 20:25:00* Test Item Value Reference Range Interpretation Comments AG HEPATITIS B SURFACE (test code = HBSAG) NON REACTIVE INDEX NonRe active AB HIV 1 20:25:00* Test Item Value Reference Range Interpretation Comments AB HIV 1 2 (test code = [id number]) NONREACTIVE INDEX NONREACTIVE RAPID PLASMA [id number] 16:18:00* Test Item Value Reference Range Interpretation Comments RAPID PLASMA REAGIN (test code = RPR) NONREACTIVE AG HEPATITIS B [id number] 16:18:00* Test Item Value Reference Range Interpretation Comments AG HEPATITIS B SURFACE (test code = HBSAG) NON REACTIVE INDEX NonRe active AB HIV 1 16:18:00* Test Item Value Reference Range Interpretation Comments AB HIV 1 2 (test code = [id number]) INDEX NONREACTIVE CBC W/AUTO [id number] 15:43:00* Test Item Value Reference Range Interpretation Comments WHITE BLOOD CELL (test code = WBC) 8.99 x10 3/uL 4.5-11.0 N RED BLOOD CELL (test code = RBC) 3.96 x10 6/uL 3.54-5.02 N HEMOGLOBIN (test code = HGB) 10.7 g/dL 11.0-15.0 L HEMATOCRIT (test code = HCT) 34.5 % 33.0-45.0 N MEAN CELL VOLUME (test code = MCV) 87.1 fL 81.0-99.0 N MEAN CELL HGB (test code = MCH) 27.0 pg 27.0-33.0 N MEAN CELL HGB CONCETRATION (test code = MCHC) 31.0 g/dL 33.0-37. 0 L RED CELL DISTRIBUTION WIDTH CV (test code = RDW) 20.4 % 11.5- 14.5 H RED CELL DISTRIBUTION WIDTH SD (test code = RDW-SD) 63.3 fL 37 .0-54.0 H PLATELET COUNT (test code = PLT) 135 x10 3/uL 150-400 L IMMATURE PLATELET FRACTION (test code = IPF) 11.4 % 0.9-11.2 H MEAN PLATELET VOLUME (test code = MPV) 13.9 fL 7.0-9.0 H NEUTROPHIL % (test code = NT%) 71.7 % 56.0-77.0 N IMMATURE GRANULOCYTE % (test code = IG%) 1.4 % 0.0-2.0 N LYMPHOCYTE % (test code = LY%) 16.7 % 14.0-32.0 N MONOCYTE % (test code = MO%) 8.8 % 4.8-9.0 N EOSINOPHIL % (test code = EO%) 1.1 % 0.3-3.7 N BASOPHIL % (test code = BA%) 0.3 % 0.0-2.0 N NUCLEATED RBC % (test code = NRBC%) 0.0 % 0-0 N NEUTROPHIL # (test code = NT#) 6.44 x10 3/uL 2.0-7.6 N IMMATURE GRANULOCYTE # (test code = IG#) 0.13 x10 3/uL 0.00-0.03 H LYMPHOCYTE # (test code = LY#) 1.50 x10 3/uL 1.0-3.8 N MONOCYTE # (test code = MO#) 0.79 x10 3/uL 0.1-0.8 N EOSINOPHIL # (test code = EO#) 0.10 x10 3/uL 0.0-0.2 N BASOPHIL # (test code = BA#) 0.03 x10 3/uL 0.0-0.2 N NUCLEATED RBC # (test code = NRBC#) 0.00 x10 3/uL 0.0-0.1 N MANUAL DIFF REQUIRED (test code = MDIFF) NO AMNISURE (ROM) [id number] 23:27:00* Test Item Value Reference Range Interpretation Comments AMNISURE (ROM) TEST (test code = AMNI) NEGATIVE NEGATIVE OPENED:06/05/2019 UA RFLX MICR CULT IF [id number] 23:08:00* Test Item Value Reference Range Interpretation Comments UA COLOR (test code = COLU) STRAW YEL/STRAW UA APPEARANCE (test code = APPU) CLEAR CLEAR UA GLUCOSE DIPSTICK (test code = DGLUU) NEGATIVE NEGATIVE UA BILIRUBIN DIPSTICK (test code = BILU) NEGATIVE NEGATIVE UA KETONE DIPSTICK (test code = KETU) NEGATIVE NEGATIVE UA SPECIFIC GRAVITY (test code = SGU) 1.001 1.005-1.030 L UA BLOOD DIPSTICK (test code = MAIRA) NEGATIVE NEGATIVE UA PH DIPSTICK (test code = GERARDO) 7.0 5.0-7.0 N UA PROTEIN DIPSTICK (test code = PROU) NEGATIVE NEGATIVE UA UROBILINIOGEN DIPSTICK (test code = URO) 0.2 mg/dL 0.2-1.0 UA NITRITE DIPSTICK (test code = BOBBY) NEGATIVE NEGATIVE UA LEUKOCYTE ESTERASE DIPSTICK (test code = LEUU) TRACE NEGA TIVE A UA WBC (test code = WBCU) 0-3 WBC/HPF 0-3 UA RBC (test code = RBCU) 0-3 RBC/HPF 0-3 UA BACTERIA (test code = BACU) TRACE /HPF NONE SEEN UA SQUAMOUS CELLS (test code = SQU) 0-5 /HPF NONE SEEN Indication for culture: Dysuria/FrequencySpecimen Description: CLEAN CATCH- MRI L-SPINE W/O [id number] 17:43:00 FAX: Becca Murphy [phone] [place]: St: REG FAX: Adela Hylton NP [phone] Name: ARSLAN KINNEY [facility] : 1995 Age/S: 24/F [address] [place] [address] Unit #: [id number] Loc: [place] [place] [address] Phys: RolandocarleeVishnuthuan LUCAS Acct: [id number] Dis Date: Status: REG ER PHONE #: [phone] Exam Date: 05/11/2019 1607 FAX #: [phone] Reason: lumbar pain, incontin ence of , LLE numb EXAMS: CPT CODE: [id number] MRI L-SPINE W/O CONT 78904 MRI LUMBAR SPINE WITHOUT CONTRAST INDICATION: Lumbar [...] 1 Signed Report (CONTINUED) FAX: Becca Murphy [phone] [place]: St: REG FAX: Faustino matosVishnuthuan LUCAS [phone] Name: ARSLAN KINNEY [facility] : 1995 Age/S: 24/F [address] Unit #: [id number] Loc: [address] [address] Phys: Adela Hylton 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 Acct: [id number] Dis Date: Status: REG ER PHONE #: [phone] Exam Date: 05/11/2019 1607 FAX #: [phone] Reason: lumbar pain, incontinence of , LLE numb EXAMS: CPT CODE: [id number] MRI L-SPINE W/O CONT 22320 < Continued> at 9673 Reported and signed by: Franki Benson D.O. CC: Becca Moreno MD; Adela Hylton NP Technologist: Douglas Acosta, RT(R)(CT)(MR) [facility] Date/Time/By: 05/11/2019 (3366) : By: [email or web address] Orig Print D/T: S: 05/11/2019 (5032) PAGE 2 Signed Report URINALYSIS [id number] 16:22:00* Test Item Value Reference Range Interpretation Comments UA COLOR (test code = COLU) NEVAEH YEL/STRAW A UA APPEARANCE (test code = APPU) SL CLOUDY CLEAR UA GLUCOSE DIPSTICK (test code = DGLUU) NEGATIVE NEGATIVE UA BILIRUBIN DIPSTICK (test code = BILU) NEGATIVE NEGATIVE UA KETONE DIPSTICK (test code = KETU) NEGATIVE NEGATIVE UA SPECIFIC GRAVITY (test code = SGU) 1.026 1.005-1.030 N UA BLOOD DIPSTICK (test code = MAIRA) NEGATIVE NEGATIVE UA PH DIPSTICK (test code = GERARDO) 7.0 5.0-7.0 N UA PROTEIN DIPSTICK (test code = PROU) NEGATIVE NEGATIVE UA UROBILINIOGEN DIPSTICK (test code = URO) 2.0 mg/dL 0.2-1.0 A UA NITRITE DIPSTICK (test code = BOBBY) NEGATIVE NEGATIVE UA LEUKOCYTE ESTERASE DIPSTICK (test code = LEUU) 3+ NEGA TIVE A UA WBC (test code = WBCU) 10-20 WBC/HPF 0-3 A UA RBC (test code = RBCU) 4-10 RBC/HPF 0-3 UA BACTERIA (test code = BACU) 2+ /HPF NONE SEEN A UA SQUAMOUS CELLS (test code = SQU) 11-25 /HPF NONE SEEN A UA MUCUS (test code = MUCU) 2+ /LPF NONE SEEN A CBC W/AUTO [id number] 16:15:00* Test Item Value Reference Range Interpretation Comments WHITE BLOOD CELL (test code = WBC) 9.44 x10 3/uL 4.5-11.0 N RED BLOOD CELL (test code = RBC) 3.71 x10 6/uL 3.54-5.02 N HEMOGLOBIN (test code = HGB) 9.7 g/dL 11.0-15.0 L HEMATOCRIT (test code = HCT) 30.6 % 33.0-45.0 L MEAN CELL VOLUME (test code = MCV) 82.5 fL 81.0-99.0 N MEAN CELL HGB (test code = MCH) 26.1 pg 27.0-33.0 L MEAN CELL HGB CONCETRATION (test code = MCHC) 31.7 g/dL 33.0-37. 0 L RED CELL DISTRIBUTION WIDTH CV (test code = RDW) 13.5 % 11.5- 14.5 N RED CELL DISTRIBUTION WIDTH SD (test code = RDW-SD) 40.8 fL 37 .0-54.0 N PLATELET COUNT (test code = PLT) 195 x10 3/uL 150-400 N MEAN PLATELET VOLUME (test code = MPV) 12.8 fL 7.0-9.0 H NEUTROPHIL % (test code = NT%) 73.7 % 56.0-77.0 N IMMATURE GRANULOCYTE % (test code = IG%) 1.5 % 0.0-2.0 N LYMPHOCYTE % (test code = LY%) 15.0 % 14.0-32.0 N MONOCYTE % (test code = MO%) 8.5 % 4.8-9.0 N EOSINOPHIL % (test code = EO%) 1.1 % 0.3-3.7 N BASOPHIL % (test code = BA%) 0.2 % 0.0-2.0 N NUCLEATED RBC % (test code = NRBC%) 0.0 % 0-0 N NEUTROPHIL # (test code = NT#) 6.96 x10 3/uL 2.0-7.6 N IMMATURE GRANULOCYTE # (test code = IG#) 0.14 x10 3/uL 0.00-0.03 H LYMPHOCYTE # (test code = LY#) 1.42 x10 3/uL 1.0-3.8 N MONOCYTE # (test code = MO#) 0.80 x10 3/uL 0.1-0.8 N EOSINOPHIL # (test code = EO#) 0.10 x10 3/uL 0.0-0.2 N BASOPHIL # (test code = BA#) 0.02 x10 3/uL 0.0-0.2 N NUCLEATED RBC # (test code = NRBC#) 0.00 x10 3/uL 0.0-0.1 N MANUAL DIFF REQUIRED (test code = MDIFF) NO - US RETROPERITONEAL [id number] 21:45:00 Name: ARSLAN KINNEY [facility] : 1995 Age/S: 24 / F [address] [place] [address] Unit #: [id number] Loc: [place] [address] Phys: Flory Padilla MD Acct: [id number] Dis Date: Status: ADM IN PHONE #: [phone] Exam Date: 04/03/20192124 FAX #: [phone] Reason: CVA TENDERNESS EXAMS: CPT CODE: [id number] US RETROPERITONEAL COM [id number] ULTRASOUND OF THE KIDNEYS INDICATION: CVA TENDERNESS TECHNIQUE: Renal ultrasound was performed. COMPARISONS: CT abdomen pelvis 02/11/2017 FINDINGS: The abdominal aorta and inferior vena cava are not visualized due to shadowing from bowel. The right kidney demonstrates mild hydronephrosis. The right kidney measures 11.3 cm [facility]. There is no nephrolithiasis or renal mass. [...] (2147) Probe: PAGE 1 Signed Report URINALYSIS [id number] 20:04:00* Test Item Value Reference Range Interpretation Comments UA COLOR (test code = COLU) YELLOW YEL/STRAW UA APPEARANCE (test code = APPU) CLEAR CLEAR UA GLUCOSE DIPSTICK (test code = DGLUU) NEGATIVE NEGATIVE UA BILIRUBIN DIPSTICK (test code = BILU) NEGATIVE NEGATIVE UA KETONE DIPSTICK (test code = KETU) NEGATIVE NEGATIVE UA SPECIFIC GRAVITY (test code = SGU) 1.011 1.005-1.030 N UA BLOOD DIPSTICK (test code = MAIRA) NEGATIVE NEGATIVE UA PH DIPSTICK (test code = GERARDO) 7.0 5.0-7.0 N UA PROTEIN DIPSTICK (test code = PROU) NEGATIVE NEGATIVE UA UROBILINIOGEN DIPSTICK (test code = URO) 0.2 mg/dL 0.2-1.0 UA NITRITE DIPSTICK (test code = BOBBY) NEGATIVE NEGATIVE UA LEUKOCYTE ESTERASE DIPSTICK (test code = LEUU) 2+ NEGA TIVE A UA WBC (test code = WBCU) 0-3 WBC/HPF 0-3 UA RBC (test code = RBCU) 0-3 RBC/HPF 0-3 UA BACTERIA (test code = BACU) NONE SEEN /HPF NONE SEEN UA SQUAMOUS CELLS (test code = SQU) 0-5 /HPF NONE SEEN UA MUCUS (test code = MUCU) TRACE /LPF NONE SEEN COMPREHENSIVE METABOLIC [id number] 22:16:00* Test Item Value Reference Range Interpretation Comments SODIUM (test code = NA) 139 mEq/L 134-147 N POTASSIUM (test code = K) 3.6 mEq/L 3.4-5.0 N CHLORIDE (test code = CL) 109 mEq/L 100-108 H CARBON DIOXIDE (test code = CO2) 26 mEq/L 21-33 N ANION GAP (test code = GAP) 8 0-20 N GLUCOSE (test code = GLU) 79 mg/dL 70-110 N BLOOD UREA NITROGEN (test code = BUN) 8 mg/dL 7-18 N GLOMERULAR FILTRATION RATE (test code = GFR) 154.3 110-120 H Units of measure = ml/min/1.73 m2 CREATININE (test code = CREAT) 0.5 mg/dL 0.6-1.3 L TOTAL PROTEIN (test code = PROT) 6.6 g/dL 6.4-8.2 N ALBUMIN (test code = ALB) 2.90 g/dL 3.4-5.0 L CALCIUM (test code = CA) 8.3 mg/dL 8.0-10.5 N BILIRUBIN TOTAL (test code = BILT) 0.20 mg/dL 0.0-1.0 N SGOT/AST (test code = AST) 15 IUnit/L 15-37 N SGPT/ALT (test code = ALT) 12 IUnit/L 15-65 L ALKALINE PHOSPHATASE TOTAL (test code = ALKP) 70 IUnit/L 20-125 N COMPREHENSIVE METABOLIC [id number] 22:14:00* Test Item Value Reference Range Interpretation Comments SODIUM (test code = NA) 139 mEq/L 134-147 N POTASSIUM (test code = K) 3.6 mEq/L 3.4-5.0 N CHLORIDE (test code = CL) 109 mEq/L 100-108 H CARBON DIOXIDE (test code = CO2) 26 mEq/L 21-33 N ANION GAP (test code = GAP) 8 0-20 N GLUCOSE (test code = GLU) 79 mg/dL 70-110 N BLOOD UREA NITROGEN (test code = BUN) 8 mg/dL 7-18 N GLOMERULAR FILTRATION RATE (test code = GFR) 154.3 110-120 H Units of measure = ml/min/1.73 m2 CREATININE (test code = CREAT) 0.5 mg/dL 0.6-1.3 L TOTAL PROTEIN (test code = PROT) g/dL 6.4-8.2 ALBUMIN (test code = ALB) 2.90 g/dL 3.4-5.0 L CALCIUM (test code = CA) 8.3 mg/dL 8.0-10.5 N BILIRUBIN TOTAL (test code = BILT) mg/dL 0.0-1.0 SGOT/AST (test code = AST) 15 IUnit/L 15-37 N SGPT/ALT (test code = ALT) 12 IUnit/L 15-65 L ALKALINE PHOSPHATASE TOTAL (test code = ALKP) IUnit/L 20-125 CBC W/AUTO [id number] 22:03:00* Test Item Value Reference Range Interpretation Comments WHITE BLOOD CELL (test code = WBC) 7.47 x10 3/uL 4.5-11.0 N RED BLOOD CELL (test code = RBC) 3.67 x10 6/uL 3.54-5.02 N HEMOGLOBIN (test code = HGB) 10.4 g/dL 11.0-15.0 L HEMATOCRIT (test code = HCT) 32.5 % 33.0-45.0 L MEAN CELL VOLUME (test code = MCV) 88.6 fL 81.0-99.0 N MEAN CELL HGB (test code = MCH) 28.3 pg 27.0-33.0 N MEAN CELL HGB CONCETRATION (test code = MCHC) 32.0 g/dL 33.0-37. 0 L RED CELL DISTRIBUTION WIDTH CV (test code = RDW) 14.0 % 11.5- 14.5 N RED CELL DISTRIBUTION WIDTH SD (test code = RDW-SD) 45.6 fL 37 .0-54.0 N PLATELET COUNT (test code = PLT) 189 x10 3/uL 150-400 N MEAN PLATELET VOLUME (test code = MPV) 11.7 fL 7.0-9.0 H NEUTROPHIL % (test code = NT%) 65.4 % 56.0-77.0 N IMMATURE GRANULOCYTE % (test code = IG%) 0.7 % 0.0-2.0 N LYMPHOCYTE % (test code = LY%) 22.8 % 14.0-32.0 N MONOCYTE % (test code = MO%) 9.6 % 4.8-9.0 H EOSINOPHIL % (test code = EO%) 1.2 % 0.3-3.7 N BASOPHIL % (test code = BA%) 0.3 % 0.0-2.0 N NUCLEATED RBC % (test code = NRBC%) 0.0 % 0-0 N NEUTROPHIL # (test code = NT#) 4.89 x10 3/uL 2.0-7.6 N IMMATURE GRANULOCYTE # (test code = IG#) 0.05 x10 3/uL 0.00-0.03 H LYMPHOCYTE # (test code = LY#) 1.70 x10 3/uL 1.0-3.8 N MONOCYTE # (test code = MO#) 0.72 x10 3/uL 0.1-0.8 N EOSINOPHIL # (test code = EO#) 0.09 x10 3/uL 0.0-0.2 N BASOPHIL # (test code = BA#) 0.02 x10 3/uL 0.0-0.2 N NUCLEATED RBC # (test code = NRBC#) 0.00 x10 3/uL 0.0-0.1 N MANUAL DIFF REQUIRED (test code = MDIFF) NO URINALYSIS [id number] 21:12:00* Test Item Value Reference Range Interpretation Comments UA COLOR (test code = COLU) YELLOW YEL/STRAW UA APPEARANCE (test code = APPU) SL CLOUDY CLEAR UA GLUCOSE DIPSTICK (test code = DGLUU) NEGATIVE NEGATIVE UA BILIRUBIN DIPSTICK (test code = BILU) NEGATIVE NEGATIVE UA KETONE DIPSTICK (test code = KETU) NEGATIVE NEGATIVE UA SPECIFIC GRAVITY (test code = SGU) 1.024 1.005-1.030 N UA BLOOD DIPSTICK (test code = MAIRA) NEGATIVE NEGATIVE UA PH DIPSTICK (test code = GERARDO) 6.0 5.0-7.0 N UA PROTEIN DIPSTICK (test code = PROU) NEGATIVE NEGATIVE UA UROBILINIOGEN DIPSTICK (test code = URO) 0.2 mg/dL 0.2-1.0 UA NITRITE DIPSTICK (test code = BOBBY) NEGATIVE NEGATIVE UA LEUKOCYTE ESTERASE DIPSTICK (test code = LEUU) TRACE NEGA TIVE A UA WBC (test code = WBCU) 4-9 WBC/HPF 0-3 A UA RBC (test code = RBCU) 0-3 RBC/HPF 0-3 UA BACTERIA (test code = BACU) TRACE /HPF NONE SEEN UA SQUAMOUS CELLS (test code = SQU) 0-5 /HPF NONE SEEN UA MUCUS (test code = MUCU) 4+ /LPF NONE SEEN A
--- OUTSIDE RECORDS SUMMARY | 2020-06-28 20:26 | XMS REPORT | Clinical Summary ---
Author Author [facility] Organization [facility] Address Unknown Phone Unavailable Care Team Providers Care Steam Conditioning Operator Name Role Phone PCP Unavailable Allergies No Known Allergies Medications No known medications Active Problems Problem Noted Date Urinary retention 04/26/2016 Viral URI with cough 04/26/2016 UTI (urinary tract infection) 04/26/2016 Social History Date Tobacco Use Types Packs/Day Years Used Never Assessed Sex Assigned at Date Recorded Not on file Industry Job Start Date Occupation Not on file Not on file Not on file Travel End Travel History Travel Start No recent travel history available. Last Filed Vital Signs Not on file Plan of Treatment Health Maintenance Due Date Last Done Comments Cervical Cancer Scrn (3 2018 Yrs) IMM Influenza Seasonal 08/29/2020 Oct to January (>/= 19 yrs) Results Not on fileafter 06/26/2019 Insurance Type Payer Benefit Subscriber ID Effective Phone Address Plan / Dates Group [facility] xxxxxxxxx 2016-P [address] [facility] [address] [place] [address]
== END 2020-06-27 00:09 | disposition home or self-care (01) ==
LOC: FSED 22:20
DX: R10.31 Right lower quadrant pain (principal); N20.0 Calculus of kidney; R11.2 Nausea with vomiting, unspecified; F41.9 Anxiety disorder, unspecified
CPT/HCPCS: 74176; 80053; 81003; 81025; 85025; 99284; J1885; J2405